=== PATIENT | female | born 1945 | race Caucasian/White ===

== ENCOUNTER 2023-12-22 10:34 | Outpatient (CLI) | payer MEDICARE, SELFPAY | END 2023-12-22 10:35 | disposition home or self-care (01) | LOC: AMB 12-25 19:40 | PROVIDERS: Visit Provider Emergency Medicine Emergency Medical Services | DX: R53.1 Weakness (principal) | CPT/HCPCS: A0425; A0429 ==

== ENCOUNTER 2023-12-22 11:05 | Emergency (ER) | payer MEDICARE, SELFPAY ==
[2023-12-22] VITALS (11 sets, daily range): BP systolic 83–171; BP diastolic 51–97; PULSE 65–98; RESP 16; TEMP 36.2; O2SAT 94–98; BMI 26.6
--- NOTE | 2023-12-22 11:46 | ED_ITS ---
HPI - General Adult General Chief complaint: Fall/Minor Trauma Stated complaint: Fall, dizziness Time Seen by Provider: 12/22/23 11:23 History of Present Illness HPI narrative: per EMS pt. had a fall about 45 min before arrival to the ED. pt. denies LOC or hitting head, pt states I bruised my butt Hx. cancer and infected hardware. last hardware replacement in the left leg was about 5 weeks ago. pt. does antibiotic injections through PICC line at home, scheduled for one today around 1300. pt. states her MD changed the antibiotic about a week ago and that's when I started to fall. 78-year-old woman presenting to the emergency department following a fall. She has been living with her sister. She had fallen was just unable to get up. Sister was unable to help her up and so EMS was called. She thinks ?I bruise my butt?. She has not been having any fever. 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 Underlying history of long-term orthostatic hypotension and does have a history of midodrine and is due for a dose. She says sometimes it helps and signs it does not. It sounds as though this was orthostatic in nature. There is no loss of consciousness. Not her head. No back pain. She does note that she has been feeling fatigued not having had much breakfast. Normally gets about with a walker. No shortness of breath or chest pain or palpitations. Related Data Allergies Allergy/AdvReac Type Severity Reaction Status Date / Time No Known Drug Allergies Allergy Verified 12/22/23 11:13 Review of Systems Status of ROS: Reports: 6 or more systems reviewed and unremarkable except as noted in History and below Exam Narrative: Exam Narrative: Very pleasant. NAD. Head is atraumatic. Cranial nerves 2-12 intact. Heart in regular rate and rhythm. Neck is supple nontender. Back nontender. Abdomen soft nontender. Contracted left foot/ankle. Lungs are clear. Later while doing orthostatics go to examine backside and not really with any reproducible pain. No swelling or erythema. Const: Vital Signs, click to edit/add: Vital Signs - 24 hr 12/22/23 11:13 Temperature 97.2 F L Pulse Rate [Pulse Oximeter] 74 Respiratory Rate 16 Blood Pressure [Ri ght Upper Arm] 160/86 H Pulse Oximetry 98 Oxygen Delivery Me thod Room Air Documenting provider has reviewed patient's vital signs: yes Course Vital Signs Vital signs: Initial Vital Signs Temperature 97.2 F L 12/22/23 11:13 Temperature Source Temporal Artery Scan 12/22/23 11:13 Pulse Rate 74 12/22/23 11:13 Respiratory Rate 16 12/22/23 11:13 Blood Pressure 160/86 H 12/22/23 11:13 Blood Pressure Mean 110 H 12/22/23 11:13 Blood Pressure Position High-Fowlers 12/22/23 11:13 Pulse Oximetry 98 12/22/23 11:13 Oxygen Delivery Method Room Air 12/22/23 11:13 Vital Signs Temperature 97.2 F L 12/22/23 11:13 Pulse Rate 74 12/22/23 11:13 Respiratory Rate 16 12/22/23 11:13 Blood Pressure 160/86 H 12/22/23 11:13 Pulse Oximetry 98 12/22/23 11:13 Oxygen Delivery Method Room Air 12/22/23 11:13 Temperature 97.2 F L 12/22/23 11:13 Pulse Rate 71 12/22/23 13:15 Respiratory Rate 16 12/22/23 11:13 Blood Pressure 171/97 H 12/22/23 13:05 Pulse Oximetry 97 12/22/23 13:15 Oxygen Delivery Method Room Air 12/22/23 11:13 Medications Administered Medications: Discontinued Medications Generic Name Dose Route Start Last Admin Trade Name Freq PRN Reason Stop Dose Admin Midodrine 5 mg 12/22/23 13:06 12/22/23 13:15 Midodrine Hcl 5 Mg Tablet PO 12/22/23 13:07 5 mg ONCE ONE Administration Medical Decision Making MDM Narrative Medical decision making narrative: In examination of orthostatics clearly drops pressures when going to standing. Minimally symptomatic. Over time in emergency department generally well. Did give due dose of midodrine. Was given food and overall reports feeling well, at baseline and felt could go home. Discharge Plan Discharge Clinical Impression: Fall, Orthostatic hypotension Patient Disposition: Home w/ Parent or Adult Condition: Improved Additional Instructions: Focus on hydration. Take care in transitions. Always eat a good breakfast :) Follow Up/Referrals: Provider,Not a Local [Primary Care Provider] - Stand Alone Forms: [facility] Info Instructions
[2023-12-22] MEDS: MIDODRINE HCL 5 MG TABLET PO (13:15)
== END 2023-12-22 15:15 | disposition home or self-care (01) ==
PROVIDERS: Emergency Provider Family Medicine
DX: E87.6 Hypokalemia (principal); E83.42 Hypomagnesemia; E87.1 Hypo-osmolality and hyponatremia
CPT/HCPCS: 99284; A9270

== ENCOUNTER 2023-12-25 15:44 | Emergency (ER) | payer MEDICARE, SELFPAY ==
[2023-12-25] VITALS (21 sets, daily range): BP systolic 144–171; BP diastolic 72–92; PULSE 64–100; RESP 14; TEMP 36.5; O2SAT 94–98; BMI 21.6
--- NOTE | 2023-12-25 16:40 | ED.GENADULT ---
HPI - General Adult General Date Seen: 12/25/23 Chief complaint: Unspecified Complaint, Adult Stated complaint: irregular labs - sent from Infusion Time Seen by Provider: 12/25/23 16:06 History of Present Illness HPI narrative: 78-year-old female who was referred to the ER from the infusion center today because of abnormal labs. She has a complicated past medical history including metastatic endometrial cancer that was 1st diagnosed about 7 years ago when she had a pathologic left hip fracture. Ultimately she had treatment of her cancer with radiation and chemo. She is no longer on treatment for that. She did have hip surgery at the time of her pathologic fracture and ultimately has had multiple surgeries in follow-up. 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 She has had a complete removal of her left hip hardware a your to ago and then spent 15 months without hip. She has had a hip reimplanted since then. Most recent incision and drainage and debridement was about 5 and half weeks ago in early November. Her orthopedic surgery team is at [facility] through the [facility] system in [place]. She also is on long-term antibiotics because of her infected hip. She has apparently had multiple cultures from the hip that have grown various strains of staff. She had previously been on daptomycin. She has been on a combination of vancomycin, levofloxacin, and rifampin for the past several weeks. She has a PICC line in her left upper extremity and she comes in for outpatient infusions of her meds. In addition to that she also has a history of orthostatic hypotension and takes midodrine for that. She had had symptoms of poor appetite, dizziness, generalized weakness for several days last week. No diarrhea. No vomiting but she did feel nauseous. She actually been seen in the ER for this last Monday and felt better after receiving a dose of midodrine. She was diagnosed with orthostatic hypotension. Although symptoms have been better since Monday. She has been basically feeling back to normal since then. She had labs drawn through the [employer] system today that were abnormal with a low potassium of 2.7, low sodium of 130, and an elevated vancomycin trough level. She was told to come to the ER because of her low potassium. She says she has never had significantly low potassium before but she typically would eat bananas to help keep it up. When I review her records through the [employer] care link I can see she has had labs On 12/11/2023: Sodium 140, potassium 3.4, chloride 103, bicarb 25, glucose 75, calcium 10.1, BUN 13, creatinine 0.99 . WBC 7.4, hemoglobin 9.4, platelet 323 12/13/23 vancomycin trough 17 On 12/19/2023 Sodium low at 122, potassium low at 2.9, chloride 89, bicarb 21, glucose 118, calcium 8.0, BUN 7, creatinine 0.59 On 12/20/2019 Sodium 123, potassium 2.9, chloride 87, bicarb 22, glucose 96, calcium 8.9, BUN 6, creatinine 0.7 WBC 8.0, hemoglobin 10.7, platelet 176 Year today on 12/25/2023: Sodium 130, potassium 2.7, chloride 93, bicarb 24, glucose 99, BUN 10, creatinine 0.99, calcium 9.4 Vancomycin trough 25.3 Related Data Home Medications ?Medication ?Instructions ?Recorded ?Confirmed atorvastatin 40 mg tablet 40 mg PO DAILY 12/25/23 12/25/23 gabapentin 100 mg capsule 300 mg PO QPM 12/25/23 12/25/23 levofloxacin 750 mg tablet 750 mg PO DAILY 12/25/23 12/25/23 levothyroxine 50 mcg tablet 50 mcg PO DAILY 12/25/23 12/25/23 levothyroxine 75 mcg tablet 75 mcg PO DAILY 12/25/23 12/25/23 micafungin 100 mg intravenous mg IV 12/25/23 solution midodrine 2.5 mg tablet PO 12/25/23 ondansetron 4 mg disintegrating 4 mg PO Q8H PRN 12/25/23 12/25/23 tablet oxycodone 5 mg tablet PO 12/25/23 rifampin 300 mg capsule PO 12/25/23 vancomycin 12/25/23 Previous Rx's ?Medication ?Instructions ?Recorded magnesium oxide 400 mg PO BID #14 caps 12/25/23 potassium chloride 20 mEq 20 meq PO DAILY #7 tabs 12/25/23 tablet,extended release Allergies Allergy/AdvReac Type Severity Reaction Status Date / Time Sulfa (Sulfonamide Allergy Mild Verified 12/25/23 15:56 Antibiotics) PFSH PFSH Social History Smoking Status: Never smoker Do you use any of these nicotine containing products: None How often do you have a drink containing alcohol: never AUDIT-C Alcohol total score: 0 Non-prescribed substance use: denies use Exam Narrative: Exam Narrative: Constitutional: Appears well-developed and well-nourished. Alert. Conversant. Non toxic. HENT: Head: Atraumatic. Nose: Nose normal. Mouth/Throat: Oral mucosa is clear and moist. no trismus. Pharynx normal. Eyes: Conjunctivae normal. EOM normal. Pupils equal, round, and reactive to light. No scleral icterus. Neck: Normal range of motion. Neck supple. No tracheal deviation present. Cardiovascular: Normal rate, regular rhythm. No gallop. No friction rub. No murmur heard. Symmetric radial artery pulses Pulmonary/Chest: Effort normal. No stridor. No respiratory distress. No wheezes. No rales. No rhonchi . No tenderness. Abdominal: Soft. No distension. No mass. No tenderness. No rebound. No guarding. Musculoskeletal: RUE: Normal range of motion. No tenderness. No deformity LUE: Normal range of motion. No tenderness. No deformity RLE: Normal range of motion. No edema. No tenderness. No deformity LLE: Chronic left leg shortening due to her previous left hip surgeries. No acute erythema or swelling. I did not remove the patient's undergarments for thorough hip exam. However she reports that there is no redness or drainage from her recent hip surgery incision. Lymph: No cervical adenopathy. Neurological: Alert and oriented to person, place, and time. Normal strength. CN II-VII intact. No sensory deficit. GCS eye subscore is 4. GCS verbal subscore is 5. GCS motor subscore is 6. Normal coordination Skin: Skin is warm and dry. No rash noted. No pallor. Normal capillary refill. Psychiatric: Normal mood. Normal affect. Const: Vital Signs, click to edit/add: Vital Signs - 24 hr 12/25/23 15:51 12/25/23 17:54 12/25/23 17:55 Temperature 97.7 F Pulse Rate 71 71 Pulse Rate [Pulse Oximeter] 100 Respiratory Rate 14 Blood Pressure 154/82 H Blood Pressure [Ri ght Upper Arm] 156/85 H Pulse Oximetry 96 97 97 Oxygen Delivery Me thod Room Air 12/25/23 17:57 12/25/23 18:00 12/25/23 18:01 Temperature Pulse Rate 66 65 Pulse Rate [Pulse Oximeter] Respiratory Rate Blood Pressure 163/82 H Blood Pressure [Ri ght Upper Arm] Pulse Oximetry 96 96 97 Oxygen Delivery Me thod 12/25/23 18:02 12/25/23 18:30 12/25/23 18:32 Temperature Pulse Rate 68 68 69 Pulse Rate [Pulse Oximeter] Respiratory Rate Blood Pressure 168/88 H Blood Pressure [Ri ght Upper Arm] Pulse Oximetry 96 96 96 Oxygen Delivery Me thod 12/25/23 18:33 12/25/23 19:00 12/25/23 19:01 Temperature Pulse Rate 67 68 67 Pulse Rate [Pulse Oximeter] Respiratory Rate Blood Pressure 161/81 H Blood Pressure [Ri ght Upper Arm] Pulse Oximetry 96 96 96 Oxygen Delivery Me thod 12/25/23 19:02 12/25/23 19:30 12/25/23 19:32 Temperature Pulse Rate 69 64 64 Pulse Rate [Pulse Oximeter] Respiratory Rate Blood Pressure 171/77 H Blood Pressure [Ri ght Upper Arm] Pulse Oximetry 95 98 97 Oxygen Delivery Me thod 12/25/23 20:00 12/25/23 20:02 12/25/23 20:30 Temperature Pulse Rate 64 70 74 Pulse Rate [Pulse Oximeter] Respiratory Rate Blood Pressure 164/75 H Blood Pressure [Ri ght Upper Arm] Pulse Oximetry 96 94 96 Oxygen Delivery Me thod 12/25/23 20:32 12/25/23 21:00 12/25/23 21:01 Temperature Pulse Rate 67 64 64 Pulse Rate [Pulse Oximeter] Respiratory Rate Blood Pressure 151/92 H 144/72 H Blood Pressure [Ri ght Upper Arm] Pulse Oximetry 97 95 95 Oxygen Delivery Me thod Course Vital Signs Vital signs: Initial Vital Signs Temperature 97.7 F 12/25/23 15:51 Temperature Source Temporal Artery Scan 12/25/23 15:51 Pulse Rate 100 12/25/23 15:51 Respiratory Rate 14 12/25/23 15:51 Blood Pressure 156/85 H 12/25/23 15:51 Blood Pressure Mean 108 H 12/25/23 15:51 Blood Pressure Position Sitting 12/25/23 15:51 Pulse Oximetry 96 12/25/23 15:51 Oxygen Delivery Method Room Air 12/25/23 15:51 Vital Signs Temperature 97.7 F 12/25/23 15:51 Pulse Rate 100 12/25/23 15:51 Respiratory Rate 14 12/25/23 15:51 Blood Pressure 156/85 H 12/25/23 15:51 Pulse Oximetry 96 12/25/23 15:51 Oxygen Delivery Method Room Air 12/25/23 15:51 Temperature 97.7 F 12/25/23 15:51 Pulse Rate 64 12/25/23 21:01 Respiratory Rate 14 12/25/23 15:51 Blood Pressure 144/72 H 12/25/23 21:01 Pulse Oximetry 95 12/25/23 21:01 Oxygen Delivery Method Room Air 12/25/23 15:51 Medications Administered Medications: Discontinued Medications Generic Name Dose Route Start Last Admin Trade Name Freq PRN Reason Stop Dose Admin Magnesium Sulfate 2 gm in 50 mls @ 25 mls/hr 12/25/23 19:21 12/25/23 21:44 Magnesium Iv IVPB 12/25/23 21:20 Infused ONCE ONE Infusion Magnesium Oxide 400 mg 12/25/23 19:14 12/25/23 19:38 Magnesium Oxide 400 Mg Tablet PO 12/25/23 19:15 400 mg ONCE ONE Administration Potassium Bicarbonate 50 meq 12/25/23 19:22 12/25/23 19:38 Potassium Bicarb 25 Meq Effervescent Tab PO 12/25/23 19:23 50 meq ONCE ONE Administration Potassium Chloride 40 meq 12/25/23 17:08 12/25/23 17:55 Potassium Chloride 10 Meq Capsule Er PO 12/25/23 17:09 40 meq ONCE ONE Administration Medical Decision Making [facility] Narrative Medical decision making narrative: Very pleasant 78-year-old female with a complex past medical history including 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 She was sent to the ER today by the outpatient infusion center where she goes to get her antibiotics because she had low potassium and low sodium. She actually had been symptomatic with lightheadedness and dizziness and weakness last week but has been better and essentially asymptomatic since 3 days ago on Monday. She was apprised when the infusion center center in because she did not expect her labs to be low. She does not take any diuretics or other medications that would clearly cause low potassium We did recheck labs here in the ER today and we do confirm hypokalemia with potassium of 2.5. Surprisingly she is not having any symptoms. EKG shows nonspecific T-wave flattening but no QT prolongation. Magnesium level is also low at 1.2. Patient was supplemented with serial doses of oral potassium here in the ER-total of 90 mEq of potassium. Also oral magnesium and 2 g of magnesium sulfate IV. On recheck labs we see that her potassium is, per 4.3 and magnesium is normal at 2.5. She remains asymptomatic. At this point her electrolytes are at safe levels were she can be discharged with close outpatient follow-up. She will follow-up with her doctor's office tomorrow or 2 days from now for repeat lab check. In the meantime will start her on a short course of oral potassium and magnesium supplements. Cause for hypokalemia and hypomagnesemia is unclear. She does have hyponatremia with sodium of 123. She is not symptomatic with this. Normal mental status. Similar to labs from last week. Will need outpatient follow-up. Discussed precautions for return to the ER. Questions answered. Patient discharging home with her sister. Lab Data Labs: Lab Results 12/25/23 12/25/23 Range/Units 16:22 21:41 WBC 8.96 (4.50-11.00) K/uL RBC 3.29 L (4.00-5.20) m/uL Hgb 10.1 L (12.0-16.0) gm/dL Hct 29.7 L (33.0-51.0) % MCV 90 (80-100) fL MCH 31 (26-34) pg MCHC 34 (32-36) gm/dL RDW Coeff of Todd 14.2 (11.5-15.5) % Plt Count 223 (140-440) K/uL Neut % (Auto) 80.6 H (42.0-72.0) % Lymph % (Auto) 8.0 L (20-44) % [place] % (Auto) 6.7 (0.0-11.0) % Eos % (Auto) 3.7 (0.0-7.0) % Baso % (Auto) 0.6 (0.0-3.0) % Neut # (Auto) 7.20 H (1.7-7.0) K/uL Lymph # (Auto) 0.70 L (0.90-2.90) K/uL [place] # (Auto) 0.60 (0.00-0.90) K/UL Eos # (Auto) 0.33 (0.00-0.50) K/uL Baso # (Auto) 0.05 (0.00-0.30) K/uL Abs Immat Gran (auto) 0.04 (0.00-0.30) K/uL Imm/Tot Granulo (auto) 0.4 % Sodium 124 L* 123 L* (135-149) mmol/L Potassium 2.5 L* 4.3 (3.6-5.1) mmol/L Chloride 91 L 90 L (96-114) mmol/L Carbon Dioxide 24 28 (20-32) mmol/L Anion Gap 9 5 L (7-15) mEq/L BUN 13 13 (7-30) mg/dL Creatinine 1.0 1.0 (0.5-1.5) mg/dL Estimated Creat Clear 43.40 43.40 Estimated GFR 58 58 ml/min Glucose 134 H 105 (60-115) mg/dL Calcium 8.9 8.7 (8.4-10.6) mg/dL Magnesium 1.3 L 2.3 (1.5-2.6) mg/dL ECG Data Attestation: I personally reviewed and interpreted this ECG as follows: Interpretation: Normal sinus rhythm Rate: 73 DE: 196 QRS axis: Low-voltage QRS. Full he has extreme right axis deviation ST segment/T wave: Nonspecific T-wave flattening no ST segment elevation or depression.. QTc: Four hundred forty-nine Discharge Plan Discharge Clinical Impression: Acute hypokalemia, Hypomagnesemia, Acute hyponatremia Patient Disposition: Home, Self-Care Condition: Stable Instructions: Hypokalemia (ED), Hypomagnesemia (ED) Additional Instructions: We will start on potassium supplements and magnesium supplements that you can take at home. Please follow-up with your doctor's office tomorrow or Monday to have a labs rechecked For now continue on your current antibiotic regimen. If you have any new symptoms such as dizziness, lightheadedness, weakness, heart palpitations or irregular rhythms, dizzy spells, or any problems, please come back to the ER right away to be rechecked. Prescriptions: New potassium chloride 20 mEq tablet extended release 20 meq PO DAILY Qty: 7 2RF magnesium oxide 400 mg magnesium capsule 400 mg PO BID Qty: 14 0RF No Action atorvastatin 40 mg tablet 40 mg PO DAILY levothyroxine 75 mcg tablet 75 mcg PO DAILY rifampin 300 mg capsule PO levothyroxine 50 mcg tablet 50 mcg PO DAILY midodrine 2.5 mg tablet PO gabapentin 100 mg capsule 300 mg PO QPM levofloxacin 750 mg tablet 750 mg PO DAILY ondansetron 4 mg tablet,disintegrating 4 mg PO Q8H PRN oxycodone 5 mg tablet PO micafungin 100 mg recon soln IV vancomycin Rx Instructions: 1.25 Grams in 250 mL Bolus IV med through picc line Follow Up/Referrals: Provider,Not a Local [Primary Care Provider] - Stand Alone Forms: [facility] Info Inst[facility]
[2023-12-25 17:21] LABS: Basophils Absolute Auto 0.05 K/uL (0.00-0.30); Basophils Percent Auto 0.6 % (0.0-3.0); Eosinophils Absolute Auto 0.33 K/uL (0.00-0.50); Eosinophils Percent Auto 3.7 % (0.0-7.0); Hematocrit 29.7 % (33.0-51.0); Hemoglobin* 10.1 gm/dL (12.0-16.0); Immature Granulocytes Abs Auto 0.04 K/uL (0.00-0.30); Immature Granulocytes Pct Auto 0.4 %; Mean Corpuscular HGB Conc 34 gm/dL (32-36); Mean Corpuscular Hemoglobin 31 pg (26-34); Mean Corpuscular Volume 90 fL (80-100); Monocytes Percent Auto 6.7 % (0.0-11.0); Neutrophils Percent Auto 80.6 % (42.0-72.0); Platelet Count* 223 K/uL (140-440); RDW Coefficient of Variation % 14.2 % (11.5-15.5); Red Blood Count 3.29 m/uL (4.00-5.20); White Blood Count* 8.96 K/uL (4.50-11.00)
[2023-12-25 17:23] LABS: Slide Review Reflex No
[2023-12-25 17:36] LABS: Chloride* 91 mmol/L (96-114)
[2023-12-25 17:39] LABS: Estimated Glomerular Filt Rate 58 ml/min
[2023-12-25 17:40] LABS: Anion Gap 9 mEq/L (7-15); Blood Urea Nitrogen* 13 mg/dL (7-30); Calcium* 8.9 mg/dL (8.4-10.6); Carbon Dioxide* 24 mmol/L (20-32); Glucose* 134 mg/dL (60-115); Magnesium* 1.3 mg/dL (1.5-2.6)
[2023-12-25 17:46] LABS: Potassium* 2.5 mmol/L (3.6-5.1); Sodium* 124 mmol/L (135-149)
[2023-12-25] MEDS: POTASSIUM CHLORIDE 10 MEQ CAPSULE ER 40 MEQ PO (17:55)
[2023-12-25] MEDS: POTASSIUM BICARB 25 MEQ EFFERVESCENT TAB 50 MEQ PO (19:38)
[2023-12-25] MEDS: MAGNESIUM OXIDE 400 MG TABLET PO (19:38)
[2023-12-25] MEDS: MAGNESIUM IV 2 GM/50 ML PIGGYBACK IVPB (19:38)
[2023-12-25 22:11] LABS: Chloride* 90 mmol/L (96-114); Potassium* 4.3 mmol/L (3.6-5.1)
[2023-12-25 22:13] LABS: Estimated Glomerular Filt Rate 58 ml/min
[2023-12-25 22:14] LABS: Anion Gap 5 mEq/L (7-15); Blood Urea Nitrogen* 13 mg/dL (7-30); Calcium* 8.7 mg/dL (8.4-10.6); Carbon Dioxide* 28 mmol/L (20-32); Glucose* 105 mg/dL (60-115); Magnesium* 2.3 mg/dL (1.5-2.6)
[2023-12-25 22:18] LABS: Sodium* 123 mmol/L (135-149)
== END 2023-12-25 23:09 | disposition home or self-care (01) ==
PROVIDERS: Emergency Provider Emergency Medicine
DX: E87.6 Hypokalemia (principal); E83.42 Hypomagnesemia; E87.1 Hypo-osmolality and hyponatremia
CPT/HCPCS: 36415; 80048; 83735; 85025; 93005; 94761; 96365; 96366; 99283; 99284; A9270; J3475

== ENCOUNTER 2024-01-02 09:04 | Emergency (ER) | payer MEDICARE, SELFPAY ==
[2024-01-02 09:09] VITALS: BP 146/88; PULSE 93; RESP 18; TEMP 36.8; O2SAT 98
--- NOTE | 2024-01-02 09:33 | CRLHL7_ITS ---
For Patients: As a result of the Century Cures Act, medical imaging exams and procedure reports are released immediately into your electronic medical record. You may view this report before your referring provider. If you have questions, please contact your health care provider. Indication: Right lower flank pain. Technique: CT of the abdomen and pelvis was performed without contrast. Comparison: None available. Findings: Visualized lung bases: Trace right greater than left pleural effusions. Liver: Unremarkable for unenhanced technique. Multiple small gallstones in the gallbladder body and neck. No pericholecystic inflammatory change. No biliary ductal dilation. Pancreas: Unremarkable for unenhanced technique. Spleen: Unremarkable for unenhanced technique. Adrenals: Unremarkable for unenhanced technique. Kidneys: Mild right hydronephrosis secondary to an 8 mm ureteropelvic junction calculus. More distal within the right ureter, there is a 2nd calculus measuring 4 mm just proximal to the ureterovesical junction. Additional bilateral renal calculi measure up to 7 mm on the right and 10 mm on the left. No left hydronephrosis. Asymmetric right perinephric stranding. Aorta/IVC: Moderate atherosclerotic aortic calcifications without aneurysmal dilation. Lymph nodes: No lymphadenopathy. Bowel: Nonobstructed bowel. Colonic diverticulosis without findings of acute diverticulitis. Normal appendix. No localized inflammatory changes. No intraperitoneal free air or fluid. Pelvis: Partially obscured secondary to beam hardening artifact from the patient`s left hip prosthesis. Uterus is surgically absent. Bones/body wall: Osseous demineralization. Osteoporotic compression fracture involving the inferior endplate of L1 with associated fracture line. There is approximately 30 percent loss of vertebral body height. Multilevel degenerative disc disease. Severe facet arthropathy. Asymmetric atrophy of the left iliopsoas musculature and gluteal musculature, likely postoperative. Impression: 1. There are 2 right ureteral calculi with mild right hydronephrosis. The larger calculus is at the ureteropelvic junction measuring 8 mm and the smaller is just proximal to the ureterovesical junction measuring 4 mm. Right perinephric stranding may be reactive versus infectious. 2. Additional bilateral renal calculi as described. 3. Acute appearing L1 inferior endplate osteoporotic compression fracture with approximately 30 percent vertebral body height loss. 4. Cholelithiasis. 5. Trace bilateral pleural effusions. 6. Colonic diverticulosis. Please note that all CT scans at this facility use dose modulation, iterative reconstruction, and/or weight-based dosing when appropriate to reduce radiation dose to as low as reasonably achievable. Dictated by Cari Orta MD @ 01/02/2024 10:27:56 AM (Electronically Signed)
[2024-01-02 09:59] LABS: Basophils Percent Auto 0.3 % (0.0-3.0); Eosinophils Percent Auto 1.3 % (0.0-7.0); Hemoglobin* 9.6 gm/dL (12.0-16.0); Immature Granulocytes Pct Auto 0.3 %; Lymphocytes Percent Auto 4.1 % (20-44); Mean Corpuscular HGB Conc 34 gm/dL (32-36); Mean Corpuscular Hemoglobin 31 pg (26-34); Mean Corpuscular Volume 91 fL (80-100); Monocytes Percent Auto 6.4 % (0.0-11.0); Neutrophils Percent Auto 87.6 % (42.0-72.0); Platelet Count* 216 K/uL (140-440); RDW Coefficient of Variation % 13.6 % (11.5-15.5); Red Blood Count 3.09 m/uL (4.00-5.20); White Blood Count* 11.59 K/uL (4.50-11.00)
[2024-01-02 10:05] LABS: Slide Review Reflex No
[2024-01-02 10:11] LABS: Albumin* 3.3 g/dL (3.3-5.0)
[2024-01-02 10:12] LABS: Chloride* 90 mmol/L (96-114); Potassium* 4.3 mmol/L (3.6-5.1)
[2024-01-02 10:14] LABS: Anion Gap 8 mEq/L (7-15); Aspartate Amino Transferase* 23 U/L (12-35); Bilirubin Total* 0.4 mg/dL (0.1-1.5); Carbon Dioxide* 22 mmol/L (20-32); Estimated Glomerular Filt Rate 58 ml/min
--- NOTE | 2024-01-02 10:14 | ED.GENADULT ---
HPI - General Adult General Date Seen: 01/02/24 Chief complaint: Back Injury/Pain Stated complaint: kidney low back pain RT side Time Seen by Provider: 01/02/24 09:27 Source: patient Mode of arrival: ambulatory Limitations: no limitations History of Present Illness HPI narrative: Patient is a 78-year-old female presenting to emergency department for right flank pain. She states this pain started at 06:00 this morning woke up from her sleep. She says the pain feels like it was deep and she is concerned was her kidney. Has had pain in this area before but she states previously that pain felt more musculoskeletal in nature. She does not remember any recent injuries or heavy lifting that could have caused the flank pain. 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 She has a PICC line is currently on IV vancomycin for the next 2 days. Has been on it for the past couple weeks. She denies fevers, chills, chest pain, shortness of breath, abdominal pain, diarrhea, constipation, headache, vision changes, dysuria, polyuria. No other concerns noted at this time. Related Data Home Medications ?Medication ?Instructions ?Recorded ?Confirmed atorvastatin 40 mg tablet 40 mg PO DAILY 12/25/23 12/25/23 gabapentin 100 mg capsule 300 mg PO QPM 12/25/23 12/25/23 levofloxacin 750 mg tablet 750 mg PO DAILY 12/25/23 12/25/23 levothyroxine 50 mcg tablet 50 mcg PO DAILY 12/25/23 12/25/23 levothyroxine 75 mcg tablet 75 mcg PO DAILY 12/25/23 12/25/23 micafungin 100 mg intravenous mg IV 12/25/23 solution midodrine 2.5 mg tablet PO 12/25/23 ondansetron 4 mg disintegrating 4 mg PO Q8H PRN 12/25/23 12/25/23 tablet oxycodone 5 mg tablet PO 12/25/23 rifampin 300 mg capsule PO 12/25/23 vancomycin 12/25/23 Previous Rx's ?Medication ?Instructions ?Recorded magnesium oxide 400 mg PO BID #14 caps 12/25/23 potassium chloride 20 mEq 20 meq PO DAILY #7 tabs 12/25/23 tablet,extended release Allergies Allergy/AdvReac Type Severity Reaction Status Date / Time Sulfa (Sulfonamide Allergy Mild Verified 12/25/23 15:56 Antibiotics) Review of Systems Status of ROS: Reports: 10 or more systems reviewed and unremarkable except as noted in History and below PFSH PFS Social History Smoking Status: Never smoker Do you use any of these nicotine containing products: None How often do you have a drink containing alcohol: never How often do you have six or more drinks on one occasion: Never AUDIT-C Alcohol total score: 0 Non-prescribed substance use: denies use Exam Narrative: Exam Narrative: Const: Well-nourished, Well-developed, in mild distress Eyes: PERRL, no conjunctival injection, and symmetrical lids HENT: Atraumatic external nose and ears. Moist mucous membranes. Neck: Symmetric, trachea midline, No thyromegaly. CVS: RRR, No murmurs or gallops. Peripheral pulses 2+ and equal in all extremities RESP: Unlabored respiratory effort. Clear to auscultation bilaterally. GI: Nontender/Nondistended, No rebound or guarding. No CVA tenderness MSK:Extremities w/o deformity, Normal Active ROM, right lower paraspinal muscle tenderness just above the iliac crest Skin: Warm, Dry. No rashes or lesions. Neuro: Normal Muscle tone, No focal neurological deficits. Psych: Awake, Alert, & Oriented x3. Appropriate mood and affect. Const: Vital Signs, click to edit/add: Vital Signs - 24 hr 01/02/24 09:09 01/02/24 12:07 01/02/24 14:15 Temperature 98.2 F Pulse Rate [Right Pulse Oximeter] 93 58 L 63 Respiratory Rate 18 16 18 Blood Pressure [Ri ght Upper Arm] 146/88 H 181/73 H 163/71 H Pulse Oximetry 98 96 95 Oxygen Delivery Me thod Room Air Room Air Room Air Course Vital Signs Vital signs: Initial Vital Signs Temperature 98.2 F 01/02/24 09:09 Temperature Source Temporal Artery Scan 01/02/24 09:09 Pulse Rate 93 01/02/24 09:09 Respiratory Rate 18 01/02/24 09:09 Blood Pressure 146/88 H 01/02/24 09:09 Blood Pressure Mean 107 H 01/02/24 09:09 Blood Pressure Position Sitting 01/02/24 09:09 Pulse Oximetry 98 01/02/24 09:09 Oxygen Delivery Method Room Air 01/02/24 09:09 Vital Signs Temperature 98.2 F 01/02/24 09:09 Pulse Rate 93 01/02/24 09:09 Respiratory Rate 18 01/02/24 09:09 Blood Pressure 146/88 H 01/02/24 09:09 Pulse Oximetry 98 01/02/24 09:09 Oxygen Delivery Method Room Air 01/02/24 09:09 Temperature 98.2 F 01/02/24 09:09 Pulse Rate 63 01/02/24 14:15 Respiratory Rate 18 01/02/24 14:15 Blood Pressure 163/71 H 01/02/24 14:15 Pulse Oximetry 95 01/02/24 14:15 Oxygen Delivery Method Room Air 01/02/24 14:15 Medications Administered Medications: Discontinued Medications Generic Name Dose Route Start Last Admin Trade Name Freq PRN Reason Stop Dose Admin Sodium Chloride 500 mls @ 1,000 mls/hr 01/02/24 10:38 01/02/24 11:45 0.9 % Sodium Chloride 500 Ml IV 01/02/24 11:07 Infused .Q30M ONE Infusion Ketorolac Tromethamine 15 mg 01/02/24 13:24 01/02/24 13:41 Ketorolac 15 Mg/Ml Inj IVP 01/02/24 13:25 15 mg ONCE ONE Administration Ondansetron HCl 4 mg 01/02/24 13:24 01/02/24 13:41 Ondansetron 2 Mg/Ml Inj IVP 01/02/24 13:25 4 mg ONCE ONE Administration Medical Decision Making [facility] Narrative Medical decision making narrative: Patient is a 78-year-old female presenting for right flank pain. She concerning could be a kidney stone. This time differential includes nephrolithiasis, back strain. Pain is in lower back and ruptured AAA seems unlikely. Possibly fractures. Will do a CT scan without contrast, CBC, urinalysis, CMP. The patient not needing any pain medication at this time. Of note also the patient is currently on IV vancomycin via PICC line for chronic left thigh wound Lab work returned the sore 120 checking previous labs she has been having issues with low sodium for the past couple weeks. Two weeks ago was 124 and follow-up lab work was improved up until yesterday when sodium was 124 the again. The hemoglobin appears to be at her baseline. She also has low chloride. 500 mL of normal saline were ordered. CT scan returned showing 2 right kidney stones. Leg with the largest being 8 mm at the ureteropelvic junction. The smaller 1 is 4 mm at the ureterovesical junction. There is right perinephric stranding. Urinalysis does not show any obvious signs of a UTI. There is 2-5 white blood cells only trace leukocyte esterases. There is a lot of blood in the urine. Stranding in the kidney is most likely reactive and not infectious. It also shows a L1 inferior endplate osteoporotic compression fracture. She states she fell a couple weeks ago and had some mild lower back pain but is not having any pain around L1 based on my exam. I did speak to the hospitalist here who considering those kidney stones recommend she gets transferred. I spoke to Dr. Anderson the hospitalists of [place] who accepted her for admission. Patient is agreeable to this plan. There will be an 8 hour delay so I will recheck her sodium in the meantime. The patient did require a dose of Zofran and pain medication. Toradol was given. Repeat sodium was 120. Is currently receiving 125 mL/hr of normal saline. Lab Data Labs: Lab Results 01/02/24 01/02/24 01/02/24 Range/Units 09:53 11:28 13:30 WBC 11.59 H (4.50-11.00) K/uL RBC 3.09 L (4.00-5.20) m/uL Hgb 9.6 L (12.0-16.0) gm/dL Hct 28.0 L (33.0-51.0) % MCV 91 (80-100) fL MCH 31 (26-34) pg MCHC 34 (32-36) gm/dL RDW Coeff of [place] 13.6 (11.5-15.5) % Plt Count 216 (140-440) K/uL Neut % (Auto) 87.6 H (42.0-72.0) % Lymph % (Auto) 4.1 L (20-44) % [place] % (Auto) 6.4 (0.0-11.0) % Eos % (Auto) 1.3 (0.0-7.0) % Baso % (Auto) 0.3 (0.0-3.0) % Neut # (Auto) 10.20 H (1.7-7.0) K/uL Lymph # (Auto) 0.50 L (0.90-2.90) K/uL [place] # (Auto) 0.70 (0.00-0.90) K/UL Eos # (Auto) 0.20 (0.00-0.50) K/uL Baso # (Auto) 0.00 (0.00-0.30) K/uL Abs Immat Gran (auto) 0.00 (0.00-0.30) K/uL Imm/Tot Granulo (auto) 0.3 % Sodium 120 L* 120 L* (135-149) mmol/L Potassium 4.3 (3.6-5.1) mmol/L Chloride 90 L (96-114) mmol/L Carbon Dioxide 22 (20-32) mmol/L Anion Gap 8 (7-15) mEq/L BUN 12 (7-30) mg/dL Creatinine 1.0 (0.5-1.5) mg/dL Estimated GFR 58 ml/min Glucose 101 (60-115) mg/dL Calcium 9.7 (8.4-10.6) mg/dL Total Bilirubin 0.4 (0.1-1.5) mg/dL AST 23 (12-35) U/L ALT 12 (4-35) U/L Alkaline Phosphatase 53 (40-150) U/L Total Protein 5.8 L (6.0-8.3) g/dL Albumin 3.3 (3.3-5.0) g/dL Urine Color Yellow (Yellow) Urine Appearance Clear (Clear) Urine pH 7.0 (5.0-8.5) Ur Specific [place] 1.020 (1.000-1.030) Urine Protein 1+ A (Negative) Urine Glucose (UA) Negative (Negative) Urine Ketones Negative (Negative) Urine Blood 2+ A (Negative) Urine Nitrite Negative (Negative) Urine Bilirubin Negative (Negative) Urine Urobilinogen 0.2 (0.2-1.0) Ur Leukocyte Esterase Trace A (Negative) Urine RBC 25-50 A (0-2) Urine WBC 2-5 (0-5) Ur Squamous Epith Cells Few (None-Few) Urine Bacteria Few A (None) Urine Mucus Few A (None) Imaging Data CT scan abdomen pelvis: Attestation: I have reviewed the pertinent imaging results. Radiologist's impression: 1. There are 2 right ureteral calculi with mild right hydronephrosis. The larger calculus is at the ureteropelvic junction measuring 8 mm and the smaller is just proximal to the ureterovesical junction measuring 4 mm. Right perinephric stranding may be reactive versus infectious. 2. Additional bilateral renal calculi as described. 3. Acute appearing L1 inferior endplate osteoporotic compression fracture with approximately 30 percent vertebral body height loss. 4. Cholelithiasis. 5. Trace bilateral pleural effusions. 6. Colonic diverticulosis. Please note that all CT scans at this facility use dose modulation, iterative reconstruction, and/or weight-based dosing when appropriate to reduce radiation dose to as low as reasonably achievable. Dictated by Cari Orta MD @ 01/02/2024 10:27:56 AM Discharge Plan Discharge Clinical Impression: Acute hyponatremia Urolithiasis Qualifiers: Urinary calculus location: urethra Qualified Code(s): N21.1 - Calculus in urethra Compression fracture of L1 vertebra Qualifiers: Encounter type: initial encounter Qualified Code(s): S32.010A - Wedge compression fracture of first lumbar vertebra, initial encounter for closed fracture Patient Disposition: [facility] Condition: Improved Prescriptions: No Action atorvastatin 40 mg tablet 40 mg PO DAILY levothyroxine 75 mcg tablet 75 mcg PO DAILY rifampin 300 mg capsule PO levothyroxine 50 mcg tablet 50 mcg PO DAILY midodrine 2.5 mg tablet PO gabapentin 100 mg capsule 300 mg PO QPM levofloxacin 750 mg tablet 750 mg PO DAILY ondansetron 4 mg tablet,disintegrating 4 mg PO Q8H PRN oxycodone 5 mg tablet PO micafungin 100 mg recon soln IV vancomycin Rx Instructions: 1.25 Grams in 250 mL Bolus IV med through picc line potassium chloride 20 mEq tablet extended release 20 meq PO DAILY Qty: 7 2RF magnesium oxide 400 mg magnesium capsule 400 mg PO BID Qty: 14 0RF Stand Alone Forms: [employer] Info Instructions
[2024-01-02 10:15] LABS: Alanine Aminotransferase* 12 U/L (4-35); Alkaline Phosphatase* 53 U/L (40-150); Blood Urea Nitrogen* 12 mg/dL (7-30); Calcium* 9.7 mg/dL (8.4-10.6); Glucose* 101 mg/dL (60-115); Total Protein* 5.8 g/dL (6.0-8.3)
[2024-01-02 10:17] LABS: Sodium* 120 mmol/L (135-149)
--- NOTE | 2024-01-02 10:20 | ED.NURSE ---
Critical lab report of sodium 120. is notified and aware.
[2024-01-02] MEDS: 0.9 % SODIUM CHLORIDE 500 ML 500 ML 1000 ML IV (10:49)
[2024-01-02 11:33] LABS: Appearance Urine Clear (Clear); Bilirubin Urine Negative (Negative); Blood Urine 2+ (Negative); Color Urine Yellow (Yellow); Glucose Urine Negative (Negative); Ketones Urine Negative (Negative); Leukocyte Esterase Urine Trace (Negative); Nitrite Urine Negative (Negative); Protein Urine 1+ (Negative); Urobilinogen Urine 0.2 (0.2-1.0)
[2024-01-02 11:50] LABS: RBC Urine 25-50 (0-2)
[2024-01-02 11:51] LABS: Bacteria Urine Few; Mucus Urine Few; Squamous Epithelial Cell Urine Few (None-Few)
[2024-01-02 12:07] VITALS: BP 181/73; PULSE 58; RESP 16; O2SAT 96
[2024-01-02] MEDS: ONDANSETRON 2 MG/ML inj 4 MG IVP (13:41)
[2024-01-02] MEDS: KETOROLAC 15 MG/ML inj IVP (13:41)
--- NOTE | 2024-01-02 14:05 | ED.NURSE ---
Pt provided with deny
[2024-01-02 14:13] LABS: Sodium* 120 mmol/L (135-149)
[2024-01-02 14:15] VITALS: BP 163/71; PULSE 63; RESP 18; O2SAT 95
--- NOTE | 2024-01-02 14:29 | ED.NURSE ---
Critical lab report of 120 sodium, MD aware.
--- NOTE | 2024-01-02 16:39 | ED.NURSE ---
Report given to Alma Delia Boothe RN.
[2024-01-02 16:53] LABS: Chloride* 89 mmol/L (96-114); Potassium* 5.4 mmol/L (3.6-5.1)
[2024-01-02 16:56] LABS: Anion Gap 7 mEq/L (7-15); Blood Urea Nitrogen* 14 mg/dL (7-30); Carbon Dioxide* 25 mmol/L (20-32); Creatinine* 1.2 mg/dL (0.5-1.5); Estimated Glomerular Filt Rate 46 ml/min; Glucose* 104 mg/dL (60-115)
[2024-01-02 16:57] LABS: Calcium* 9.5 mg/dL (8.4-10.6)
[2024-01-02 17:01] VITALS: BP 145/67; PULSE 65; RESP 18; O2SAT 96
[2024-01-02 17:05] LABS: Sodium* 121 mmol/L (135-149)
[2024-01-02 17:10] VITALS: TEMP 37.3
--- NOTE | 2024-01-02 17:31 | ED.NURSE ---
Pt report given to EMS. Pt to transfer to room #[id number], unit 54.
== END 2024-01-02 17:35 | disposition short-term general hospital (02) ==
PROVIDERS: Emergency Provider Student in an Organized Health Care Education/Training Program
DX: E87.1 Hypo-osmolality and hyponatremia (principal); N20.9 Urinary calculus, unspecified; S32.010A Wedge compression fracture of first lumbar vertebra, initial encounter for closed fracture
CPT/HCPCS: 36415; 74176; 80048; 80053; 81001; 84295; 85025; 87086; 87186; 96374; 96375; 99284; 99285; J1885; J2405; J7030

== ENCOUNTER 2024-01-02 17:18 | Outpatient (CLI) | payer MEDICARE, SELFPAY | END 2024-01-02 17:19 | disposition home or self-care (01) | LOC: AMB 01-06 15:38 | PROVIDERS: Visit Provider Emergency Medicine | DX: N20.0 Calculus of kidney (principal); E87.1 Hypo-osmolality and hyponatremia; S32.010A Wedge compression fracture of first lumbar vertebra, initial encounter for closed fracture | CPT/HCPCS: A0425; A0434 ==

== ENCOUNTER 2024-03-14 08:29 | Outpatient (CLI) | payer MEDICARE, SELFPAY | END 2024-03-14 08:30 | disposition home or self-care (01) | LOC: AMB 03-25 04:20 | PROVIDERS: Visit Provider Emergency Medicine Emergency Medical Services | DX: R53.1 Weakness (principal); R42 Dizziness and giddiness | CPT/HCPCS: A0998 ==

== ENCOUNTER 2024-03-17 16:05 | Outpatient (CLI) | payer MEDICARE, SELFPAY | END 2024-03-17 16:06 | disposition home or self-care (01) | LOC: AMB 04-02 02:55 | PROVIDERS: Visit Provider Emergency Medicine | DX: R53.1 Weakness (principal) | CPT/HCPCS: A0425; A0429 ==

== ENCOUNTER 2024-03-17 16:34 | Inpatient (IN) | payer MEDICARE, SELFPAY ==
[2024-03-17] VITALS (26 sets, daily range): BP systolic 73–155; BP diastolic 46–79; PULSE 60–99; RESP 18; TEMP 36.4; O2SAT 94–100; BMI 20.2
--- OUTSIDE RECORDS SUMMARY | 2024-03-17 16:35 | XMS_ITS | Continuity of Care Document ---
Author Name Nw[facility]IN User [email or web address] llowed Address Unknown Organization Unknown Address Unknown Procedures FILTER APPLIED:Only known Procedures with Onset Date within the last 5 years Procedure Date Procedure Provider Additiona l Information Status [facility] DECLOT IVAD OR CATH W THROMBOLYTIC (93169) Completed PLATELET COUNT (21750) C ompleted URINALYSIS MICROSCOPIC (52322) Completed UA W/ SEDIMENT EXAM REFLEXED PER CRITERIA (23954) Completed T3,TOTAL (54457) Complet ed TSH (53995) Completed CREATININE (43263) Compl eted POTASSIUM (12758) Comple anaya SODIUM (85858) Completed T4,FREE (12045) Complete d Encounters FILTER APPLIED:Only known Encounters with Admission Date within the last 5 years Encounter Location Admission Discharge Billing Code [employer] Manager Attender Inpatient [facility] AURELIA ALBERT
--- OUTSIDE RECORDS SUMMARY | 2024-03-17 16:35 | XMS_ITS | Clinical Summary ---
Author Organization [facility] Address [place], [place] [address] Care Team Providers Care Education Rep Name Role Phone Essence Palomo MD Unavailable [phone] Lemuel Kilpatrick MD Unavailable [phone] Zoila Fink MD Unavailable Unavailab Alexandria Gilbert MD Primary Care Provider + Eber Tam MD Unavailable + [phone] [facility], Sandeep Unavailable Allergies Active Allergy Reactions Criticality Noted Date Comments Sulfa (Sulfonamide Antibiotics) Hives 04/2016 Medications cholecalciferol (VITAMIN D3) 5,000 unit capsuleIndication s:osteoporosis,os teoporosis Take 5,000 units by mouth once daily. 40 units = 1 mcg (5000 units = 125 mcg) Active diphenhydrAMINE (BENADRYL) 25 mg tabletIndications :allergic reaction Take 25 mg by mouth at bedtime. Plus take one tablet by mouth once a day PRN for sinus congestion Active ferrous sulfate, 65 mg elemental, tabletIndications :iron deficiency anemia Take 1 Tablet (325 mg) by mouth once daily with a meal. 90 Tablet 3 09/16/19 22 Active ascorbic acid (VITAMIN C) 250 mg as half tabletIndications :osteopenia Take 250 mg by mouth once daily. Active cyanocobalamin (VITAMIN B12) 1,000 mcg tabletIndications :B12 deficiency Take 1 Tablet (1,000 mcg) by mouth once daily. 06/10/19 24 Active atorvastatin (LIPITOR) 40 mg tabletIndications :Hyperlipidemia, unspecified hyperlipidemia type TAKE 1 TABLET BY MOUTH AT BEDTIME 90 Tablet 2 11/06/19 24 Active acetaminophen (TYLENOL EXTRA STRGTH) 500 mg tabletIndications :Status post revision of total hip replacement Take 2 Tablets (1,000 mg) by mouth every 6 hours. Max acetaminophen dose: 4000mg in 24 hrs. 100 Tablet 4 11:29 AM CDT 11/27/19 24 Active aspirin enteric coated (ECOTRIN) 325 mg tabletIndications :Status post revision of total hip replacement Take 1 Tablet (325 mg) by mouth once daily with a meal. 30 Tablet 4 11:29 AM CDT 11/28/19 24 Active ondansetron (ZOFRAN ODT) 4 mg disintegrating tabletIndications :Vomiting, unspecified vomiting type, unspecified whether nausea present Place 1 Tablet (4 mg) on the tongue every 8 hours if needed for Nausea/Vomiting. 30 Tablet 12/20/19 24 Active midodrine (PROAMATINE) 2.5 mg tabletIndications :Hypotension, unspecified hypotension type 5mg in the morning, 5mg at noon, 2.5mg at night for hypotension 450 Tablet 3 12/25/19 24 Active calcium citrate (CITRACAL) 200 mg (950 mg) tablet Take 950 mg by mouth once daily with a meal. Active gabapentin (NEURONTIN) 100 mg capsule Take 200 mg by mouth at bedtime. Active levothyroxine (SYNTHROID) 75 mcg tabletIndications :Acquired hypothyroidism Take 1 Tablet (75 mcg) by mouth before breakfast. 01/11/20 24 Active oxyCODONE (ROXICODONE) 5 mg immediate release tabletIndications :Status post revision of total hip replacement Take 1 Tablet (5 mg) by mouth every 4 hours if needed for Pain (For moderate to severe pain and anticipation of activity. Hold if sedated.). 20 Tablet 01/13/20 24 Active doxycycline monohydrate (Monodox) 100 mg capsuleIndication s:bone infection Take 1 Capsule (100 mg) by mouth two times daily. 180 Capsule 3 02/19/20 24 Active levoFLOXacin (LEVAQUIN) 500 mg tablet Take 500 mg by mouth once daily before evening meal. 01/13/20 24 Active levothyroxine (SYNTHROID) 50 mcg tabletIndications :Hypothyroidism, unspecified type TAKE 1 TABLET BY MOUTH EVERY DAY 90 Tablet 1 01/15/20 24 024 Discontin ued(*Medi cation adjustmen t) doxycycline monohydrate (Monodox) 100 mg capsuleIndication s:Infection of prosthetic hip joint, subsequent encounter Take 1 Capsule (100 mg) by mouth two times daily. 01/29/20 24 024 Discontin ued(Reord er (E-cancel not sent)) Active Problems Problem Noted Date Diagnosed Date Acquired hypothyroidism 01/03/2024 Prosthetic hip infection 01/03/2024 Postoperative infection 01/03/2024 Alopecia 01/03/2024 Ureteral stent present 01/03/2024 Janeth infection 01/03/2024 Right ureteral stone 01/02/2024 Closed wedge compression fra cture of L1 vertebra with routine healing 01/02/2024 Hyponatremia 01/02/2024 Prosthetic joint infection of left hip S/p Left hip irrigation & de bridement DOS: 11/21/2023 with Eber Tam MD 11/22/2023 MARJORIE (acute kidney injury) 11/21/2023 Normocytic anemia 11/21/2023 Leukocytosis 11/21/2023 Aftercare following left hip joint replacement s urgery 11/21/2023 Acquired leg length discrepancy 07/19/2023 Overview (07/19/2023): 2/2 left hip surgeries and infection Orthostatic hypotension 06/07/2023 Combined form of senile cataract of both eyes S/p Left total hip arthropla sty revision DPS: 11/18/2022 with Eber Tam MD 02/03/2023 History of endometrial cancer 11/22/2022 B12 deficiency 08/13/2022 Chronic infection of left hip, 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 Hypothyroidism, unspecified 10/06/2020 Age-related osteoporosis wit hout current pathological fracture 10/06/2020 HLD (hyperlipidemia) 12/11/2019 History of pulmonary embolus (PE) 03/23/2017 Overview (02/08/2023): Provoked - endometrial cancer s/p Fixation of left subtroc hanteric femur fracture with a carmel under fluroscopy on 08/13/[address] Miri Mccain 11/08/2016 Pathological fracture in neoplastic disease 11/2016 Resolved Problems Problem Noted Date Diagnosed Date Resolved Date Closed dislocation of left hip 11/17/2022 02/08/2023 Stage 2/3a chronic kidney disease 11/17/2022 02/08/2023 Metabolic acidosis 11/17/2022 Thrombocytopenia 08/24/2022 02/08/2023 Aftercare, L hip joint infection 08/02/2022 02/08/2023 Infected prosthetic hip, initial encounter 07/18/2022 11/22/2022 Anemia 05/10/2022 02/08/2023 Infected prosthetic hip 03/29/202201/12 Hypomagnesemia 12/29/2021 01/05/2022 Hypokalemia 12/28/2021 01/05/2022 Endometrial cancer 11/02/2021 Hyperchloremic metabolic acidosis 07/13/2021 01/05/2022 s/p left hip explant with pl acement of antibiotic spacer on 05/14/2021 with Eber Tam MD 05/25/2021 12/28/2021 s/p left hip I&D on 04/16/2021 with Eber Tam MD 04/19/2021 12/28/2021 s/p left hip I&D on with Eber Tam MD 04/13/2021 12/28/2021 Left hip postoperative wound infection 10/01/2020 02/08/2023 Status post left hip hardwar e removal and total hip arthroplasty done on 05/10/2017 05/18/2017 02/08/2023 Orthopedic aftercare- left h ip failed gamma nail fixation 05/16/2017 02/08/2023 Metastatic adenocarcinoma to bone 05/16/2017 09/30/2020 ACP (advance care planning) 09/23/2016 12/28/2020 Overview (09/28/2016): Patient has identified Health Care Agent(s): Yes Add Health Care Agents: Yes Health Care Agent(s): Primary Health Care Agent: Liza Tam Relationship: Sister Secondary Health Care Agent: Yanira Lombardi Relationship: Cousin Third Alternative Health Care Agent: Daphne Lombardi Relationship: Cousin's Dtr cell; [phone] Conservator: Relationship: Phone: Guardian: Relationship: Phone: Patient has Advance Care Plan Documents (Health Care Directive, POLST): No, Health Care Packet given to patient.- She and her sister plan to review. Patient has identified Specific Treatment Preferences: No Specific limits to treatment preferences NOT identified: ASSUME FULL TREATMENT. Endometrial cancer 09/20/2016 3 Acute cystitis without hematuria 08/21/2016 03/23/2017 Metastatic adenocarcinoma 08/19/2016 Iron deficiency anemia due t o chronic blood loss 08/19/2016 12/09/2019 Postoperative anemia due to acute blood loss 7 03/23/2017 Encounter for orthopedic steve gical aftercare following Left subtrochanteric femoral fracture 08/19/2016 03/23/2017 Overview (08/24/2016): Pathological Fracture d/t Metastatic Adenocarcinoma Vaginal bleeding 08/18/2016 03/23/2017 Closed left hip fracture 08/12/2016 Anemia 08/12/2016 12/09/2019 Leukocytosis 08/12/2016 12/09/2019 Laceration of head 08/12/2016 8 ACP (advance care planning) 08/12/2016 12/09/2019 Overview (08/12/2016): Patient has identified Health Care Agent(s): Yes Add Health Care Agents: sister Liza Patient has Advance Care Plan Documents (Health Care Directive, POLST): No Patient has identified Specific Treatment Preferences: Yes Specific Treatment Preferences: a.) Code Status: CPR/Attempt Resuscitation Encounters Date Type Department Care Team Description 03/15/2024 2:15 PM LEATHER TOOLER Office Visit [facility] [address] [place] [place] [address] Bobbi Santa MD Preoperative Exam (CYSTOSCOPY, RIGHT URETEROSCOPY, HOLMIUM LASER/RIGHT URETERAL STENT REMOVAL VERSUS EXCHANGE /Tomas, Ruben Roy MD/) 03/15/2024 10:30 AM LEATHER TOOLER Home Care Visit [facility] [address] [place] [address] Jelani Hill ARTIST WOODBLOCK - HOME VISIT 03/15/2024 Travel 03/12/2024 2:30 PM LEATHER TOOLER Home Care Visit [facility] [address] [place] [phone] José Miguel Obrien, PT PT - HOME VISIT 03/12/2024 10:15 AM LEATHER TOOLER Home Care Visit [facility] [address] [place] [phone] Drew Crisostomo, OT OT - HOME VISIT 03/12/2024 Travel 03/08/2024 1:00 PM LEATHER TOOLER Home Care Visit [facility] [address] [place] [phone] Lexii Snow COTA OT - HOME VISIT 03/05/2024 10:30 AM LEATHER TOOLER Home Care Visit [facility] [address] [place] [phone] Magda Alvarenga ARTIST WOODBLOCK - HOME VISIT 03/05/2024 9:00 AM LEATHER TOOLER Home Care Visit [facility] [address] [place] [phone] José Miguel Obrien, PT PT - HOME VISIT 03/04/2024 11:00 AM LEATHER TOOLER Home Care Visit [facility] [address] [place] [phone] Eli Dominguez LISW LIFE SCIENTIST - INITIAL ASSESSMENT 02/28/2024 2:15 PM LEATHER TOOLER Home Care Visit [facility] [address] [place] [address] [place] [phone] José Miguel Obrien, PT PT - HOME VISIT 02/28/2024 1:30 PM LEATHER TOOLER Home Care Visit [facility] [address] [place] [address] Lexii Snow COTA OT - HOME VISIT 02/27/2024 12:00 PM LEATHER TOOLER Home Care Visit [facility] [address] [place] [phone] Magda Alvarenga ARTIST WOODBLOCK - HOME VISIT 02/27/2024 9:30 AM LEATHER TOOLER Home Care Visit [facility] [address] [place] [phone] Tawana Peters, CROW SN - DISCIPLINE DISCHARGE 02/27/2024 Telephone [facility] [address] [address] Tawana Peters, blocker and polisher 02/23/2024 10:45 AM LEATHER TOOLER Home Care Visit [facility] [address] [place] [phone] Magda Alvarenga ARTIST WOODBLOCK - HOME VISIT 02/21/2024 2:00 PM LEATHER TOOLER Home Care Visit [facility] [address] [place] [phone] José Miguel Obrien, PT PT - INITIAL ASSESSMENT 02/21/2024 9:30 AM LEATHER TOOLER Home Care Visit [facility] [address] [place] [phone] Drew Crisostomo OT OT - INITIAL ASSESSMENT 02/19/2024 9:00 AM LEATHER TOOLER Phone Office Visit [facility] [address] [place] [address] Costa Flores MD 02/19/2024 Travel 02/15/2024 12:00 PM LEATHER TOOLER Home Care Visit [facility] [address] [place] [phone] Tawana Peters, CROW SN - OASIS START OF CARE 02/15/2024 Plan of Care Documentation [facility] [address] [place] [phone] 02/15/2024 Telephone [facility] [address] [place] [phone] Tawana Peters, blocker and polisher 02/15/2024 Orders Only [facility] [address] [place] [address] Tawana Peters RN <No scans attached> 02/13/2024 Transcribe Orders [facility] [address] [place] [address] Ruben Ty MD 02/12/2024 Telephone [facility] [address] [facility] [address] [place] [address] Costa Flores MD Medication Management (picc line) 02/07/2024 Orders Only [facility] Scanner 1 scan: (1-Ord) [facility], MULTIPLE LAB TESTS, 02/07/2024 02/05/2024 Transcribe Orders [facility] [address] [place] [address] Ruben Ty MD 01/29/2024 9:40 AM LEATHER TOOLER Office Visit [facility] [address] [facility] [address] [place] [address] Costa Flores MD Hospital F/U 01/29/2024 Travel 01/27/2024 Home Care Visit [facility] [address] [place] [phone] Tawana Peters RN EPISODE DISCHARGE 01/23/2024 2:40 PM LEATHER TOOLER Orders Only [facility] [address] [facility] [address] [place] [address] Lab 01/23/2024 Travel 01/23/2024 Patient Outreach [facility] Care Management - Advanced Care Team [address] [place] [address] Yarelis cOhoa, RECREATION THERAPY AIDE [facility] 01/20/2024 Travel 01/18/2024 Telephone [facility] [address] [place] [address] Costa Flores MD Lab 01/17/2024 Home Care Visit [facility] [address] [place] [address] Tawana Peters RN CARE COORDINATION 01/16/2024 Telephone [facility] [address] [place] [address] Costa Flores MD Medication Management (Stop date for antibiotics) 01/11/2024 Refill [facility] [address] [place] [phone] Alexandria Lynch MD Refill Request (Levothyroxine) 01/04/2024 Travel 01/04/2024 Home Care Visit [facility] [address] [place] [phone] Tawana Peters, CROW SN - OASIS TRANSFER 01/03/2024 10:50 AM CDT Anesthesia Event [facility] [address] [place] [address] Ruby Durham MD Natzel, Marissa L, BRIDGE WELDER Student 01/03/2024 10:25 AM CDT - 01/03/2024 12:28 PM CDT Surgery [facility] [address] [place] [address] Ruben Marin MD CYSTOSCOPY, RIGHT URETERAL STENT PLACEMENT, RIGHT RETROGRADE PYELOGRAM 01/03/2024 Home Care Visit [facility] [address] [place] [address] Malika Chandler RN CARE TRANSITION NOTE 01/02/2024 7:53 PM CDT - 01/13/2024 10:40 AM CDT Hospital Encounter [facility] [address] [place] [address] [facility] Solano MD Lorence-Nelson, Dona Mae, MD Zafari, Olivia, MD Acquired hypothyroidism (Primary Dx); Hypothyroidism, unspecified type; Janeth infection; Infection of prosthetic hip joint, subsequent encounter; Occlusion of peripherally inserted central catheter (PICC) line, subsequent encounter; S/p Left total hip arthroplasty revision DPS: 11/18/2022 with Eber Tam MD Discharge Disposition: [facility] 01/02/2024 Nurse Triage [facility] [address] [place] [address] Alexandria Lynch MD Back Pain 01/01/2024 1:30 PM CDT Home Care Visit [facility] [address] [place] [phone] Tawana Peters RN SN - LONG VISIT (>90 MINUTES) 01/01/2024 9:00 AM CDT Phone Office Visit [facility] [address] [facility] [address] [place] [address] Costa Flores MD 01/01/2024 Orders Only [facility] [address] [place] [address] Costa Flores MD Lab 01/01/2024 Travel 01/01/2024 Orders Only [facility] [address] [place] [address] Costa Flores MD Lab (Home care) 12/28/2023 10:40 AM CDT Office Visit [facility] Orthopedics - [facility] [place] [address] [facility] [address] [place] [address] Eber Tam MD Surgical Followup (5 weeks s/p Left hip irrigation & debridement DOS: 11/21/2023 with Eber Tam MD) 12/27/2023 12:00 PM CDT Home Care Visit [facility] [address] [place] [address] Magda Alvarenga ARTIST WOODBLOCK - HOME VISIT 12/27/2023 Travel 12/26/2023 11:30 AM CDT Home Care Visit [facility] [address] [place] [address] Tawana Peters, CROW SN - LONG VISIT (>90 MINUTES) 12/26/2023 Telephone [facility] [address] [place] [address] Tawana Peters RN Home Care 12/26/2023 Orders Only [facility] [address] [place] [address] Costa Flores MD Lab 12/26/2023 Orders Only [facility] [address] [place] [address] Costa Flores MD Lab (Home care) 12/25/2023 1:00 PM CDT Home Care Visit [facility] [address] [place] [address] Tawana Peters RN SN - LONG VISIT (>90 MINUTES) 12/25/2023 Home Care Visit [facility] [address] [place] [address] Tawana Peters, CROW CARE COORDINATION 12/25/2023 Telephone [facility] [address] [facility] [address] [place] [address] Zainab Miramontes MD 12/25/2023 Orders Only [facility] [address] [place] [address] Costa Flores MD Lab 12/25/2023 Orders Only [facility] [address] [place] [address] Costa Flores MD Lab (Home care) 12/25/2023 Refill [facility] [address] [place] [phone] Alexandria Lynch MD Refill Request (midodrine (PROAMATINE) 2.5 mg tablet ) 12/20/2023 4:00 PM CDT Home Care Visit [facility] [address] [place] [phone] Tawana Peters RN SN - HOME VISIT 12/20/2023 Orders Only [facility] [address] [place] [address] Tawana Peters RN <No scans attached> 12/20/2023 Nurse Triage [facility] [address] [place] [phone] Alexandria Lynch MD Concerns 12/20/2023 Orders Only [facility] [address] [place] [address] Costa Flores MD Lab 12/19/2023 1:30 PM CDT Home Care Visit [facility] [address] [place] [phone] Tawana Peters RN SN - LONG VISIT (>90 MINUTES) 12/19/2023 Telephone [facility] [address] [place] [address] Tawana Peters, blocker and polisher 12/19/2023 Orders Only [facility] [address] [facility] [place] [address] Tawana Peters RN <No scans attached> 12/19/2023 Orders Only [facility] [address] [place] [address] Costa Flores MD Lab 12/19/2023 Orders Only [facility] [address] [place] [address] Costa Flores MD Lab ([facility]) 12/18/2023 12:40 PM CDT Office Visit [facility] Orthopedics - [facility] [place] [address] [facility] [address] [place] [phone] Demetri Fernandez PA Follow Up (S/p Left hip irrigation & debridement DOS: 11/21/2023 with Eber Tam MD) 12/18/2023 Travel from Last 3 Months Immunizations Name Administration Dates Next Due AMB Influenza, IIV4 PF (=>6 mos Flulaval,Fluzone Fluarix)(Flu Clinic Only) 01/20/2020 Amb Influenza, Inact (High-d ose Quadrivalent) (Flu Clinic Only) 12/11/2016 COVID-19 VACCINE SPIKEVAX (M ODERNA 50MCG/0.5ML) 12YO+ PFS 01/08/2024,02/08/2023 COVID-19 vaccine (Moderna 50mcg/0.5mL) 6YO-11YO PF, MDV 02/08/2023 COVID-19 vaccine (WaveSyndicate-Bio NTech 30mcg/0.3mL) 12YO+ BIVALENT PF, MDV 12/29/2021 COVID-19 vaccine (Pfizer-Bio NTech 30mcg/0.3mL) 12YO+ JEANNIE-SUCROSE PF, MDV 06/24/2021 COVID-19 vaccine (WaveSyndicate-Bio NTech 30mcg/0.3mL) PF, MDV 12/29/2021,06/12/2020,05/22/2020,2020 Influenza, High-dose Quadriv alent Inactivated 02/08/2023,2020 Influenza, Inactivated AIIV4 (Age 65+ Years) Preserv Free 02/08/2023,12/29/2021 Influenza, Inactivated IIV3 (Age 65+ Years) Preserv Free 01/08/2024,12/31/2018 Pneumococcal Poly,23-Valent (Pneumovax) 09/17/2018 Pneumococcal conj 13-Valent (Prevnar 13) 09/16/2016 Pneumococcal, Unspecified 09/16/2016 Tdap 03/11/2021 Tuberculin (PPD) 10/06/2020 Tuberculin Skin Test, Unspecified 06/20/2023,,05/13/2017 Zoster (Shingrix-RZV, recombinant) 03/11/2021, Family History Medical History Relation Name Comments No Known Problems Brother Other Father prostate proble m No Known Problems Maternal Grandfather No Known Problems Maternal Grandmother Dementia Mother Cancer-breast Other 1 pat cousin Cancer-breast Other 2 Maternal Great Aunt Cancer-breast Paternal Aunt No Known Problems Paternal Grandfather No Known Problems Paternal Grandmother Deep vein thrombosis Sister Food intolerance Sister Cancer No Family History male cousi n cancer of the femur Cancer-ovarian No Family History Relation Name Status Comments Brother Father Maternal Grandfather Maternal Grandmother Mother Other 1 Other 2 Paternal Aunt Paternal Grandfather Paternal Grandmother Sister Social History Tobacco Use Types Packs/Day Years Used Date Smoking Tobacco: Former Cigarettes 0.5 11.4 0 10/02/1964 - 03/14/1976 Smokeless Tobacco: Never Tobacco Cessation:Counseling Given: No Comments:no exposure Alcohol Use Standard Drinks/Week Comments Not Currently 0 (1 standard drink = 0.6 oz pur e alcohol) rarely [facility] Utilities Answer Date Recorded Do you have trouble paying f or utilities (for example, heat, electricity, water, phone)? Yes 01/04/2024 PHQ-2 Answer Date Recorded PHQ-2 TOTAL SCORE 0 02/08/2023 Social Connections Answer Date Recorded Do you often feel lonely or isolated from those around you? 4 01/04/2024 Financial Resource Strain Answer Date R ecorded Difficulty of Paying Living Expenses 3 02/08/2023 Difficulty of Paying Living Expenses Not on file 02/08/2023 Food Insecurity Answer Date Recorded Do you worry your food will run out before you are able to buy more? 1 01/04/2024 Transportation Needs Answer Date Record ed Does lack of transportation keep you from medica l appointments? 1 01/04/2024 Does lack of transportation keep you from work, meetings or getting things that you need? 1 01/04/2024 Housing Stability Answer Date Recorded What is your housing situation today? 1 01/04/2024 Interpersonal Safety Answer Date Record ed Are you being hit, kicked, p ushed or yelled at (see row info)? No 01/04/2024 Interpersonal Safety Abuse 12 - 18 Not on file 01/04/2024 Interpersonal Safety Ambulatory Vulnerability No t on file 01/04/2024 Comments No Sex and Gender Information Value Date Recorded Sex Assigned at Female 02/16/2021 10:41 AM LEATHER TOOLER Legal Sex Female 1:45 PM CDT Gender Identity Female 02/16/2021 10:43 AM LEATHER TOOLER Sexual Orientation Straight 02/16/2021 10 :41 AM LEATHER TOOLER Obstetrics History Last Filed Vital Signs Vital Sign Reading Time Taken Comments Blood Pressure 143/88 03/15/2024 2:19 PM LEATHER TOOLER Pulse 93 03/15/2024 2:19 PM LEATHER TOOLER Temperature 36.5 C (97.7 F) 03/12/2024 2:34 PM LEATHER TOOLER Respiratory Rate 16 03/12/2024 2:34 PM LEATHER TOOLER Oxygen Saturation 99% 03/15/2024 2:19 PM LEATHER TOOLER Inhaled Oxygen Concentration - - Weight 60.2 kg (132 lb 12.8 oz) 024 12:15 PM LEATHER TOOLER Height 165.1 cm (5' 5) 02/15/2024 12:1 5 PM LEATHER TOOLER Body Mass Index 22.1 02/15/2024 12:15 PM LEATHER TOOLER Plan of Treatment Upcoming Encounters Date Type Department Care Team (Latest Contact Info) Description 03/20/2024 8:31 AM LEATHER TOOLER Hospital Encounter [facility] [address] [place] [address] Ruben Marin MD [address] [place], [place] [phone] 03/20/2024 8:31 AM LEATHER TOOLER - 03/20/2024 10:11 AM LEATHER TOOLER Surgery [facility] [address] [place] [address] Ruben Marin MD [address] [place] [address] CYSTOSCOPY, RIGHT URETEROSCOPY, HOLMIUM LASER LITHOTRIPSY Scheduled Procedures Name Priority Associated Diagnoses Date/Ti me CYSTOSCOPY URETEROSCOPY LASER Tier 2 N20.0- kidney stones 03/20/2024 8:31 AM LEATHER TOOLER CYSTOSCOPY REMOVAL URETERAL STENT Tier 2 N20.0- kidney stones 03/20/2024 8:31 AM LEATHER TOOLER Health Maintenance Due Date Last Done Comments DEXA/DXA scan for age 65+ 2010 RSV vaccine for adults or (1 - 1-dose 75+ series) 2020 BMI (ht and wt on same day) for age 18+ 12/28/2021 12/28/2020, 12/09/2019, 12/31/2018, Additional history exists Medicare Wellness for age 65+ 02/09/2024, 12/28/2020, 12/09/2019 Depression screening for age 12+ 02/12/2024 02/11/2023, 02/08/2023, 12/28/2020, Additional history exists Tetanus booster 03/11/2031 03/11/2021 Pneumococcal series for age 50+ Completed 09/17/2018, 09/16/2016, 09/16/2016 Hepatitis C screening for ag e 18-79 Completed 12/28/2020 Tdap Completed 03/11/2021 Zoster (shingles) series for age 50+ Completed 03/11/2021, 10/21/2020 COVID-19 vaccine series Completed 01/08/20 24, 02/08/2023, 02/08/2023, Additional history exists Influenza for age 65+ Completed 01/08/2024 , 02/08/2023, 02/08/2023, Additional history exists Medical Devices Implanted Type Area Meat Packer Device Identifier Shelf Expiration Date Model / Serial / Lot Cmnt Bone Simplex Atb Tobramycin - [id number] Implanted:Qty: 1 on 05/10/2022 by Eber Tam MD at [facility] Left: Hip [facility] 08/11/2023 6197-9-001 / / [id number] Cmnt Bone Simplex Atb Tobramycin - [id number] Implanted:Qty: 1 on 05/10/2022 by Eber Tam MD at [facility] Left: Hip [facility] 08/11/2023 6197-9-001 / / [id number] Cmnt Bone Simplex Atb Tobramycin - [id number] Implanted:Qty: 2 on 07/18/2022 by Eber Tam MD at [facility] Left: Hip [facility] 12/11/2023 6197-9-001 / / [id number] Trident Tritanium Multihole Acetabular Shell Implanted:Qty: 1 on 07/18/2022 by Eber Tam MD at [facility] Left: Hip [facility] 06/30/2026 [id number] / / [id number] Screw Hip 6.5x35mm [place] Low Profile Hex - [id number] Implanted:Qty: 1 on 07/18/2022 by Eber Tam MD at [facility] Left: Hip [facility] 09/03/2025 8088-4146 / / [id number] Screw Hip 6.5x30mm [place] Low Profile Hex - [id number] Implanted:Qty: 1 on 07/18/2022 by Eber Tam MD at [facility] Left: Hip [facility] 08/10/2026 7953-7203 / / [id number] Screw Hip 6.5x20mm [place] Low Profile Hex - [id number] Implanted:Qty: 1 on 07/18/2022 by Eber Tam MD at [facility] Left: Hip [facility] 03/23/2027 2528-0002 / / [id number] Screw Hip 6.5x25mm [place] Low Profile Hex - [id number] Implanted:Qty: 1 on 07/18/2022 by Eber Tam MD at [facility] Left: Hip [facility] 09/15/2026 7303-3177 / / [id number] Cmnt Bone Simplex Atb Tobramycin - [id number] Implanted:Qty: 1 on 07/18/2022 by Eber Tam MD at [facility] Left: Hip [facility] 08/11/2023 6197-9-001 / / [id number] Gmrs Extension Piece Implanted:Qty: 1 on 07/18/2022 by Eber Tam MD at [facility] Left: Hip [facility] 05/10/2025 [id number] / / [id number] Gmrs Extension Piece Implanted:Qty: 1 on 07/18/2022 by Eber Tam MD at [facility] Left: Hip [facility] 06/13/2025 [id number] / / [id number] Gmrs Proximal Femoral Component Implanted:Qty: 1 on 07/18/2022 by Eber Tam MD at [facility] Left: Hip [facility] 03/22/2027 [id number] / / [id number] Stem Hip [id number] Gmrs W/O Body Titnm - [id number] Implanted:Qty: 1 on 07/18/2022 by Eber Tam MD at [facility] Left: Hip [facility] 05/19/2027 [id number] / / [id number] Head Hip Od28mm -4 Biolox Delta C-Taper Alumina Cer - [id number] Implanted:Qty: 1 on 07/18/2022 by Eber Tam MD at [facility] Left: Hip [facility] 04/14/2027 6570-0-028 / / [id number] Insert Acetab X3 Latter-Day Adm - [id number] Implanted:Qty: 1 on 07/18/2022 by Eber Tam MD at [facility] Left: Hip [facility] 01/08/2027 7236-2-852 / / [id number] Liner Hip Id42 Od48.5mm Trident - [id number] Implanted:Qty: 1 on 11/18/2022 by Eber Tam MD at [facility] Left: Hip [facility] 01/06/2025 690-00-28F / / [id number] Head Hip Od28mm -4 V40 Co Cr - [id number] Implanted:Qty: 1 on 11/18/2022 by Eber Tam MD at [facility] Left: Hip [facility] 09/05/2027 6260-5-028 / / [id number] Stent Uret 6bud63hb Contour - [id number] Implanted:Qty: 1 on 01/03/2024 by Ruben Marin MD at [facility] Right: Ureter [facility] 09/25/2026 [id number] / / [id number] Explanted Type Area Meat Packer Device Identifier Shelf Expiration Date Model / Serial / Lot Screw Sm Joint 6.5x30mm Canclls Bone - [id number] Implanted:Qty: 1 on 05/10/2017 by Eber Tam MD at [facility] Explanted:Qty: 1 on 05/14/2021 by Eber Tam MD at [facility] Ortho Imp.,Screw s & Plates Left: Hip [facility] 12/12/2021 3165-7548-1 # / / [id number] Screw Sm Joint 6.5x25mm Canclls Bone - [id number] Implanted:Qty: 1 on 05/10/2017 by Eber Tam MD at [facility] Explanted:Qty: 1 on 05/14/2021 by Eber Tam MD at [facility] Ortho Imp.,Screw s & Plates Left: Hip [facility] 03/15/202220292913-2354-1 # / / [id number] Screw Sm Joint 6.5x25mm Canclls Bone - [id number] Implanted:Qty: 1 on 05/10/2017 by Eber Tam MD at [facility] Explanted:Qty: 1 on 05/14/2021 by Eber Tam MD at [facility] Ortho Imp.,Screw s & Plates Left: Hip [facility] 12/15/202120291843-6996-1 # / / [id number] Wire K 3.6h628fa - [id number] Explanted:Qty: 1 on 08/13/2016 by Miri Mccain MD at [facility] Left: Hip [facility] 04/12/2021 1210-6450S# / / [id number] Guidewire Ball Tip 7w6247qh - [id number] Explanted:Qty: 1 on 08/13/2016 by Miri Mccain MD at [facility] Left: Hip [facility] 06/10/2021 1806-0085S# / / [id number] Wire K 7y566vq - [id number] Explanted:Qty: 1 on 08/13/2016 by Miri Mccain MD at [facility] Left: Hip [facility] 04/12/2021 1806-0050S# / / [id number] Wire K 1h491js - [id number] Explanted:Qty: 1 on 08/13/2016 by Miri Mccain MD at [facility] Left: Hip [facility] 05/10/2021 1806-0050S# / / [id number] Nail Fem Lt 70p634hv 125deg Gamma 3 Titnm Strl - [id number] Implanted:Qty: 1 on 08/13/2016 by Miri Mccain MD at [facility] Explanted:Qty: 1 on 05/10/2017 by Eber Tam MD at [facility] Left: Hip [facility] 04/12/2021 3525-0380S# / / [id number] Screw Fem 10.5x90mm Gamma3 Lag - [id number] Implanted:Qty: 1 on 08/13/2016 by Miri Mccain MD at [facility] Explanted:Qty: 1 on 05/10/2017 by Eber Tam MD at [facility] Left: Hip [facility] 04/12/2021 3060-0090S# / / [id number] Trident Acetabular Shell Implanted:Qty: 1 on 05/10/2017 by Eber Tam MD at [facility] Explanted:Qty: 1 on 05/14/2021 by Eber Tam MD at [facility] Left: Hip [facility] 02/01/2022 508-11-52E / / [id number] Screw Sm Joint 6.5x20mm Canclls Bone - [id number] Implanted:Qty: 1 on 05/10/2017 by Eber Tam MD at [facility] Explanted:Qty: 1 on 05/14/2021 by Eber Tam MD at [facility] Left: Hip [facility] 06/14/2021- # / / [id number] Screw Sm Joint 6.5x20mm Canclls Bone - [id number] Implanted:Qty: 1 on 05/10/2017 by Eber Tam MD at [facility] Explanted:Qty: 1 on 05/14/2021 by Eber Tam MD at [facility] Left: Hip [facility] 02/07/2022- # / / [id number] Screw Sm Joint 6.5x20mm Can[place]ls Bone - [id number] Implanted:Qty: 1 on 05/10/2017 by Eber Tam MD at [facility] Explanted:Qty: 1 on 05/14/2021 by Eber Tam MD at [facility] Left: Hip [facility] 02/09/2021 3727-1636-1 # / / [id number] Trident Constrained Acetabular Insert Implanted:Qty: 1 on 05/10/2017 by Eber Tam MD at [facility] Explanted:Qty: 1 on 05/14/2021 by Eber Tam MD at [facility] Left: Hip [facility] 10/14/2021 690-00-22E / / [id number] Cmnt Restrictor Hip 18.5mm Guzman - [id number] Implanted:Qty: 1 on 05/10/2017 by Eber Tam MD at [facility] Explanted:Qty: 1 on 05/14/2021 by Eber Tam MD at [facility] Left: Hip [facility] 10/11/2026 12-9418# / / [id number] Stem Hip Sz6 132deg Omnifit [place] Co Cr - [id number] Implanted:Qty: 1 on 05/10/2017 by Eber Tam MD at [facility] Explanted:Qty: 1 on 05/14/2021 by Eber Tam MD at [facility] Left: Hip [facility] 12/24/2019 3902-7914# / / [id number] Spacer Hip 10mm Accolade - [id number] Implanted:Qty: 1 on 05/10/2017 by Eber Tam MD at [facility] Explanted:Qty: 1 on 05/14/2021 by Eber Tam MD at [facility] Left: Hip [facility] 11/23/2020 6956-5515# / / [id number] Head Hip Od22mm +0 Lfit C-Taper Co Cr - [id number] Implanted:Qty: 1 on 05/10/2017 by Eber Tam MD at [facility] Explanted:Qty: 1 on 05/14/2021 by Eber Tam MD at [facility] Left: Hip [facility] 01/10/2019 06-2200# / / [id number] Bone Matrix 20cc Stimulan Kit Rapid Cure - [id number] Implanted:Qty: 1 on 04/16/2021 by Eber Tam MD at [facility] Explanted:Qty: 1 on 05/14/2021 by Eber Tam MD at [facility] Left: Hip [employer] 11/11/2023 620-020 / / [id number] Cmnt Bone Simplex Atb Tobramycin - [id number] Implanted:Qty: 1 on 05/10/2017 by Eber Tam MD at [facility] Explanted:Qty: 1 on 05/14/2021 by Eber Tam MD at [facility] Left: Hip [facility] 11/10/2018 6197-9-001# / / [id number] Cmnt Bone Simplex Atb Tobramycin - [id number] Implanted:Qty: 1 on 05/10/2017 by Eber Tam MD at [facility] Explanted:Qty: 1 on 05/14/2021 by Eber Tam MD at [facility] Left: Hip [facility] 09/09/2018 6197-9-001# / / [id number] Cmnt Bone 20g Simplex P Non Atb Mv - [id number] Implanted:Qty: 1 on 05/10/2017 by Eber Tam MD at [facility] Explanted:Qty: 1 on 05/14/2021 by Eber Tam MD at [facility] Left: Hip [facility] 08/11/2019 6188-1-010# / / [id number] Cmnt Bone Simplex P 1pk - [id number] Implanted:Qty: 3 on 05/14/2021 by Eber Tam MD at [facility] Explanted:Qty: 3 on 07/10/2021 by Eber Tam MD at [facility] Left: Hip [facility] 08/10/2022 6191-1-001 / / [id number] Cable Hip 2mm [facility] Beaded Vitallium - [id number] Implanted:Qty: 2 on 05/14/2021 by Eber Tam MD at [facility] Explanted:Qty: 2 on 07/10/2021 by Eber Tam MD at [facility] Left: Hip [facility] 03/07/2026 6704-0-520 / / [id number] Cable Hip 2mm [place] [employer]ed Vitallium - [id number] Implanted:Qty: 1 on 05/14/2021 by Eber Tam MD at [facility] Explanted:Qty: 1 on 07/10/2021 by Eber Tam MD at [facility] Left: Hip [facility] 03/07/2026 6704-0-520 / / [id number] [place] Cemented Standard Collar Femoral Component, Size 12, 225mm Length Implanted:Qty: 1 on 05/14/2021 by Eber Tam MD at [facility] Explanted:Qty: 1 on 07/10/2021 by Eber Tam MD at [facility] Left: Hip [facility] 02/10/2024 85835866 / / [id number] Head Modular 40mm Oxin - [id number] Implanted:Qty: 1 on 05/14/2021 by Eber Tam MD at [facility] Explanted:Qty: 1 on 07/10/2021 by Eber Tam MD at [facility] Left: Hip [facility] 11/14/2026 30655008 / / [id number] Sleeve Hip +0 Neck Shrt Mod Titnm Oxin - [id number] Implanted:Qty: 1 on 05/14/2021 by Eber Tam MD at [facility] Explanted:Qty: 1 on 07/10/2021 by Eber Tam MD at [facility] Left: Hip [facility] 01/15/2025 32012575 / / [id number] Cmnt Bone Simplex Atb Tobramycin - [id number] Implanted:Qty: 1 on 06/21/2021 by Eber Tam MD at [facility] Explanted:Qty: 1 on 07/10/2021 by Eber Tam MD at [facility] Left: Hip [facility] 09/09/2022 6197-9-001 / / [id number] Cmnt Bone Simplex Atb Tobramycin - [id number] Implanted:Qty: 1 on 06/21/2021 by Eber Tam MD at [facility] Explanted:Qty: 1 on 07/10/2021 by Eber Tam MD at [facility] Left: Hip [facility] 11/10/2022 6197-9-001 / / [id number] Remedy Acetabular Cup 40mm Id / 48mm Od Implanted:Qty: 1 on 06/21/2021 by Eber Tam MD at [facility] Explanted:Qty: 1 on 07/10/2021 by Eber Tam MD at [facility] Left: Hip [facility] 10/10/2024 RHACXS / / [id number] Description:OSTEOREMEDIES Cmnt Bone 20g Simplex P Non Atb Mv - [id number] Implanted:Qty: 1 on 06/21/2021 by Eber Tam MD at [facility] Explanted:Qty: 1 on 07/10/2021 by Eber Tam MD at [facility] Left: Hip [facility] 6188-1-001 / / Description:Only Used the mo nomer out of the set Remedy Spectrm Gv, Modular Femoral Head Implanted:Qty: 1 on 06/21/2021 by Eber Tam MD at [facility] Explanted:Qty: 1 on 07/10/2021 by Eber Tam MD at [facility] Left: Hip [facility] 03/12/2025 GVHDXS / / [id number] Remedy Modular Stem Implanted:Qty: 1 on 06/21/2021 by Eber Tam MD at [facility] Explanted:Qty: 1 on 07/10/2021 by Eber Tam MD at [facility] Left: Hip [facility] 04/12/2025 RHSTSM / / [id number] Cmnt Bone Simplex Atb Tobramycin - [id number] Implanted:Qty: 1 on 07/10/2021 by Eber Tam MD at [facility] Explanted:Qty: 1 on 09/06/2021 by Eber Tam MD at [facility] Left: Hip [facility] 09/09/2022 6197-9-001 / / [id number] Cmnt Bone Simplex Atb Tobramycin - [id number] Implanted:Qty: 1 on 07/10/2021 by Eber Tam MD at [facility] Explanted:Qty: 1 on 09/06/2021 by Eber Tam MD at [facility] Left: Hip [facility] 12/10/2022 6197-9-001 / / [id number] Cmnt Bone Simplex Atb Tobramycin - [id number] Implanted:Qty: 1 on 07/10/2021 by Eber Tam MD at [facility] Explanted:Qty: 1 on 09/06/2021 by Eber Tam MD at [facility] Left: Hip [facility] 08/10/2022 6197-9-001 / / [id number] Pin Delores 3.6gul6xe Threaded - [id number] Implanted:Qty: 1 on 07/10/2021 by Eber Tam MD at [facility] Explanted:Qty: 1 on 09/06/2021 by Eber Tam MD at [facility] Left: Hip [employer] 00-0262-004 -04 / / Remedy Acetabular Cup 40mm Id/48mm Od Implanted:Qty: 1 on 05/14/2021 by Eber Tam MD at [facility] Explanted:Qty: 1 on 11/18/2022 at [facility] Left: Hip [facility] 10/10/2024 RHACXS / / [id number] Description:previous surgery Delores Pin, Unthreaded, Implanted:Qty: 1 on 05/10/2022 by Eber Tam MD at [facility] Explanted:Qty: 1 on 11/18/2022 at [facility] Left: Hip Description:previous surgery Liner Hip Id46mm Sz C Mdmx3 Cocr - [id number] Implanted:Qty: 1 on 07/18/2022 by Eber Tam MD at [facility] Explanted:Qty: 1 on 11/18/2022 by Eber Tam MD at [facility] Left: Hip [facility] 04/20/2027 [id number] / / [id number] Procedures Procedure Name Priority Date/Time Associated Diagnosis Comments TSH WITH REFLEX Routine 03/15/2024 3:12 PM [facility]ATHER TOOLER Hypothyroidism, unspecified type BASIC METABOLIC PANEL Routine 03/15/2024 3:12 PM [facility]ATHER TOOLER Hyponatremia SCAN-LABORATORY REPORT 12:00 AM LEATHER TOOLER CREATININE Routine 01/29/2024 10:41 AM LEATHER TOOLER Infection of prosthetic hip joint, subsequent encounter CBC WITH AUTO DIFFERENTIAL Routine 01/29/2024 10:41 AM LEATHER TOOLER Infection of prosthetic hip joint, subsequent encounter HEPATIC FUNCTION PANEL Routine 10:41 AM LEATHER TOOLER Infection of prosthetic hip joint, subsequent encounter C-REACTIVE PROTEIN Routine 01/29/2024 10 :41 AM LEATHER TOOLER Infection of prosthetic hip joint, subsequent encounter CBC WITH AUTO DIFFERENTIAL STAT 01/23/2024 3:36 PM LEATHER TOOLER 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, initial encounter (HC) BASIC METABOLIC PANEL STAT 01/23/2024 3:36 PM LEATHER TOOLER 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, initial encounter (HC) CBC WITH AUTO DIFFERENTIAL STAT 01/23/2024 3:36 PM LEATHER TOOLER 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, initial encounter (HC) SCAN CORRESP-LABORATORY RESULTS 01/15/2024 1:53 PM LEATHER TOOLER T4,FREE Early AM 01/11/2024 6:19 AM CDT TSH Early AM 01/11/2024 6:19 AM CDT SODIUM Today 01/08/2024 12:36 PM CDT TSH Today 01/08/2024 12:36 PM CDT SODIUM Early AM 01/07/2024 7:03 AM CDT CLOSTRIDIOIDES DIFFICILE TOXIN PCR Today 01/06/2024 10:08 AM CDT CREATININE Early AM 01/06/2024 6:17 AM CDT SODIUM Early AM 01/06/2024 6:17 AM CDT SODIUM Timed 01/05/2024 9:27 PM CDT SODIUM Timed 01/05/2024 10:33 AM CDT SODIUM Timed 01/05/2024 6:13 AM CDT TSH Early AM 01/05/2024 6:13 AM CDT PLATELET COUNT Timed 01/05/2024 6:13 AM CDT SODIUM Timed 01/05/2024 2:56 AM CDT SODIUM Timed 01/04/2024 9:06 PM CDT URINALYSIS MICROSCOPIC Timed 7:48 PM CDT UA W/ SEDIMENT EXAM REFLEXED PER CRITERIA Today 01/04/2024 7:48 PM CDT SODIUM Timed 01/04/2024 2:48 PM CDT SCAN CORRESP-IMAGING 01/04/2024 11:59 AM CDT SODIUM STAT 01/04/2024 8:56 AM CDT CREATININE Early AM 01/04/2024 6:24 AM CDT SODIUM Early AM 01/04/2024 6:24 AM CDT XR RETROGRADE PYELOGRAM W/WO KUB Routine 01/03/2024 11:41 AM CDT ENDOTRACHEAL TUBE Routine 01/03/2024 11: 17 AM CDT CYSTOSCOPY PLACEMENT URETERAL STENT RETROGRADES 01/03/2024 10:34 AM CDT Right kidney stone SODIUM Timed 01/03/2024 6:21 AM CDT T3,TOTAL CIARAN 01/03/2024 12:04 AM CDT T4,FREE Today 01/03/2024 12:04 AM CDT TSH Today 01/03/2024 12:04 AM CDT CREATININE CIARAN 01/03/2024 12:04 AM CDT POTASSIUM CIARAN 01/03/2024 12:04 AM CDT SODIUM CIARAN 01/03/2024 12:04 AM CDT SCAN-CARDIAC STRIP 01/02/2024 12 :00 AM CDT CBC WITH AUTO DIFFERENTIAL STAT 01/01/2024 1:45 PM CDT 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, initial encounter (HC) VANCOMYCIN TROUGH Routine 01/01/2024 1:4 5 PM CDT 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, initial encounter (HC) C-REACTIVE PROTEIN Routine 01/01/2024 1: 45 PM CDT 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, initial encounter (HC) CK TOTAL Routine 01/01/2024 1:45 PM CDT 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, initial encounter (HC) BASIC METABOLIC PANEL Routine 01/01/2024 1:45 PM CDT 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, initial encounter (HC) CBC WITH AUTO DIFFERENTIAL STAT 01/01/2024 1:45 PM CDT 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, initial encounter (HC) CBC WITH AUTO DIFFERENTIAL Routine 12/26/2023 12:20 PM CDT 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, initial encounter (HC) VANCOMYCIN TROUGH Routine 12/26/2023 12: 20 PM CDT 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, initial encounter (HC) C-REACTIVE PROTEIN Routine 12/26/2023 12 :20 PM CDT 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, initial encounter (HC) CBC WITH AUTO DIFFERENTIAL Routine 12/26/2023 12:20 PM CDT 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, initial encounter (HC) MAGNESIUM Routine 12/26/2023 12:20 PM CDT 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, initial encounter (HC) BASIC METABOLIC PANEL Routine 12/26/2023 12:20 PM CDT 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, initial encounter (HC) CBC WITH AUTO DIFFERENTIAL Routine 12/25/2023 2:25 PM CDT 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, initial encounter (HC) CBC WITH AUTO DIFFERENTIAL Routine 12/25/2023 2:25 PM CDT 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, initial encounter (HC) C-REACTIVE PROTEIN Routine 12/25/2023 2: 25 PM CDT 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, initial encounter (HC) CK TOTAL Routine 12/25/2023 2:25 PM CDT 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, initial encounter (HC) BASIC METABOLIC PANEL Routine 12/25/2023 2:25 PM CDT 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, initial encounter (HC) VANCOMYCIN TROUGH Routine 12/25/2023 2:2 5 PM CDT 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, initial encounter (HC) RED CELL MORPHOLOGY Routine 12/20/2023 1 0:08 AM CDT 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, initial encounter (HC) PLATELET ESTIMATE Routine 12/20/2023 10: 08 AM CDT 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, initial encounter (HC) MANUAL DIFFERENTIAL Routine 12/20/2023 1 0:08 AM CDT 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, initial encounter (HC) CBC WITH AUTO DIFFERENTIAL Routine 12/20/2023 10:08 AM CDT 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, initial encounter (HC) CBC WITH AUTO DIFFERENTIAL Routine 12/20/2023 10:08 AM CDT 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, initial encounter (HC) BASIC METABOLIC PANEL Routine 12/20/2023 10:08 AM CDT 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, initial encounter (HC) C-REACTIVE PROTEIN Routine 12/19/2023 4: 25 AM CDT 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, initial encounter (HC) VANCOMYCIN TROUGH Routine 12/19/2023 4:2 5 AM CDT 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, initial encounter (HC) BASIC METABOLIC PANEL STAT 12/19/2023 4:25 AM CDT 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, initial encounter (HC) ANTI HCV Routine 12/28/2020 11:38 AM CDT Encounter for hepatitis C screening test for low risk patient from Last 3 Months or Most Recently Relevant to Health Maintenance Results * TSH WITH REFLEX (03/15/2024 3:12 PM LEATHER TOOLER) TSH W/REFLEX TO FT4 0.43 0.40 - 4.50 mIU/L [facility] Blood BLOOD SPECIMEN / Unknown 03/15/2024 3:12 PM LEATHER TOOLER 03/15/2024 3:12 PM LEATHER TOOLER Bobbi Santa MD CHEMISTRY Fi nal Result [facility] [address] [place] [address], [facility] [address] [place] [address] * (ABNORMAL) BASIC METABOLIC PANEL (03/15/2024 3:12 PM LEATHER TOOLER) Only the most recent of7 resultswithin the time period is included. Pathologist [facility] GLUCOSE 79 65 - 99 mg/dL [facility] Comment: Fasting reference interval UREA NITROGEN (BUN) 43(H) 7 - 25 mg/dL [facility] CREATININE 1.80(H) 0.60 - 1.00 mg/dL [facility] EGFR 28(L) > OR = 60 mL/min/1.7 3m2 [facility] BUN/CREATININE RATIO 24(H) 6 - 22 (calc) [facility] SODIUM 141 135 - 146 mmol/L [facility] POTASSIUM 4.1 3.5 - 5.3 mmol/L [facility] CHLORIDE 107 98 - 110 mmol/L [facility] CARBON DIOXIDE 19(L) 20 - 32 mmol/L [facility] ELECTROLYTE BALANCE 15 7 - 17 mmol/L (calc) [facility] CALCIUM 10.4 8.6 - 10.4 mg/dL [facility] Blood BLOOD SPECIMEN / Unknown 03/15/2024 3:12 PM [facility] [employer] 03/15/2024 3:12 PM [facility] [employer] Bobbi Santa MD CHEMISTRY Fi nal Result Performing Organization Address [facility] Co de Phone Number [employer] [facility] [address] [place] [id number], [place] [phone] [facility] [address] [place] [address] * SCAN-LABORATORY REPORT (02/07/2024 12:00 AM LEATHER TOOLER) Scanner OTHER Final Result * (ABNORMAL) CREATININE (01/29/2024 10:41 AM LEATHER TOOLER) Only the most recent of4 resultswithin the time period is included. CREATININE 1.05(H) 0.60 - 1.00 mg/dL [facility] EGFR 54(L) > OR = 60 mL/min/1.73 m2 [facility] od Manjit Blood BLOOD SPECIMEN / Unknown 01/29/2024 10:41 AM LEATHER TOOLER 01/29/2024 10:42 AM LEATHER TOOLER Costa Flores MD CHEMISTRY Final Res ult Performing Organization Address [facility] de Phone Number [employer] [facility] [address] [place] [address], [place] [phone] [facility] [address] [place] [address] * (ABNORMAL) C-REACTIVE PROTEIN (01/29/2024 10:41 AM LEATHER TOOLER) Only the most recent of5 resultswithin the time period is included. C-REACTIVE PROTEIN 8.6(H) <8.0 mg/L [facility] Blood BLOOD SPECIMEN / Unknown 01/29/2024 10:41 AM LEATHER TOOLER 01/29/2024 10:42 AM LEATHER TOOLER Costa Flores MD CHEMISTRY Final Res ult Performing Organization Address City/[facility]/ZIP Co de Phone Number [employer] [facility] [address] [place] [address], [employer] [address] [place] [address] * (ABNORMAL) CBC AND DIFFERENTIAL (01/29/2024 10:41 AM LEATHER TOOLER) WHITE BLOOD CELL COUNT 8.3 3.8 - 10.8 Thousand/u L [facility] RED BLOOD CELL COUNT 3.90 3.80 - 5.10 Million/uL [facility] HEMOGLOBIN 11.8 11.7 - 15.5 g/dL [facility] HEMATOCRIT 36.2 35.0 - 45.0 % [facility] MCV 92.8 80.0 - 100.0 fL [facility] MCH 30.3 27.0 - 33.0 pg [facility] MCHC 32.6 32.0 - 36.0 g/dL [facility] Comment: For adults, a slight decrease in the calculated MCHC value (in the range of 30 to 32 g/dL) is most likely not clinically significant; however, it should be interpreted with caution in correlation with other red cell parameters and the patient's clinical condition. RDW 13.3 11.0 - 15.0 % [facility] PLATELET COUNT 291 140 - 400 Thousand/u L [facility] MPV 10.9 7.5 - 12.5 fL [facility] ABSOLUTE NEUTROPHILS 6,781 1,500 - 7,800 cells/uL [facility] ABSOLUTE LYMPHOCYTES 838(L) 850 - 3,900 cells/uL [facility] ABSOLUTE MONOCYTES 589 200 - 950 cells/uL [facility] ABSOLUTE EOSINOPHILS 42 15 - 500 cells/uL [facility] ABSOLUTE BASOPHILS 50 0 - 200 cells/uL [facility] NEUTROPHILS 81.7 % [facility] LYMPHOCYTES 10.1 % [facility] MONOCYTES 7.1 % [facility] EOSINOPHILS 0.5 % [facility] BASOPHILS 0.6 % [facility] Blood BLOOD SPECIMEN / Unknown 01/29/2024 10:41 AM LEATHER TOOLER 01/29/2024 10:42 AM LEATHER TOOLER Costa lFores MD HEMATOLOGY Final Res ult Performing Organization Address [facility]/ZIP Co de Phone Number [facility] [address] [place] [address], [facility] [address] [place] [address] * (ABNORMAL) HEPATIC FUNCTION PANEL (01/29/2024 10:41 AM LEATHER TOOLER) PROTEIN, TOTAL 4.9(L) 6.1 - 8.1 g/dL [facility] ALBUMIN 2.5(L) 3.6 - 5.1 g/dL [facility] GLOBULIN 2.4 1.9 - 3.7 g/dL (calc) [facility] ALBUMIN/GLOBULIN RATIO 1.0 1.0 - 2.5 (calc) [facility] BILIRUBIN, TOTAL 1.0 0.2 - 1.2 mg/dL [facility] BILIRUBIN, DIRECT 0.4(H) < OR = 0.2 mg/dL [facility] BILIRUBIN, INDIRECT 0.6 0.2 - 1.2 mg/dL (calc) [facility] ALKALINE PHOSPHATASE 98 37 - 153 U/L [facility] AST 41(H) 10 - 35 U/L [facility] ALT 18 6 - 29 U/L [facility] Blood BLOOD SPECIMEN / Unknown 01/29/2024 10:41 AM LEATHER TOOLER 01/29/2024 10:42 AM LEATHER TOOLER Costa Flores MD CHEMISTRY Final Res ult [facility] [address] [place] [address], [facility] [address] [place] [address] * CBC WITH AUTO DIFFERENTIAL (01/23/2024 3:36 PM [facility]) Only the most recent of5 resultswithin the time period is included. WHITE BLOOD COUNT 6.4 4.5 - 11.0 thou/cu mm 01/23/2024 4:08 PM [facility] RED BLOOD COUNT 4.03 4.00 - 5.20 mil/cu mm 01/23/2024 4:08 PM [facility] HEMOGLOBIN 12.4 12.0 - 16.0 g/dL 01/23/2024 4:08 PM [facility] HEMATOCRIT 36.4 33.0 - 51.0 % 01/23/2024 4:08 PM [facility] MCV 90 80 - 100 fL 01/23/2024 4:08 PM [facility] MCH 30.8 26.0 - 34.0 pg 01/23/2024 4:08 PM [facility] MCHC 34.1 32.0 - 36.0 g/dL 01/23/2024 4:08 PM [facility] RDW 15.3 11.5 - 15.5 % 01/23/2024 4:08 PM [facility] PLATELET COUNT 329 140 - 440 thou/cu mm 01/23/2024 4:08 PM [facility] MPV 10.6 6.5 - 11.0 fL 01/23/2024 4:08 PM [facility] NRBC 0.0 % 01/23/2024 4:08 PM [facility] ABS NRBC 0.0 thou /cu mm 01/23/2024 4:08 PM [facility] % NEUT 72.6 % 01/23/2024 4:08 PM [facility] % LYMPH 15.6 % 01/23/2024 4:08 PM [facility] % MONO 9.7 % 01/23/2024 4:08 PM [facility] % EOS 0.9 % 01/23/2024 4:08 PM [facility] % BASO 0.9 % 01/23/2024 4:08 PM LEATHER TOOLER [facility] % IMMATURE GRAN (METAS,MYELOS,CO OS) 0.3 % 01/23/2024 4:08 PM LEATHER TOOLER [facility] ABSOLUTE NEUTROPHILS 4.6 1.7 - 7.0 thou/cu mm 01/23/2024 4:08 PM LEATHER TOOLER [facility] ABSOLUTE LYMPHOCYTES 1.0 0.9 - 2.9 thou/cu mm 01/23/2024 4:08 PM LEATHER TOOLER [facility] ABSOLUTE MONOCYTES 0.6 <0.9 thou/cu mm 01/23/2024 4:08 PM LEATHER TOOLER [facility] ABSOLUTE EOSINOPHILS 0.1 <0.5 thou/cu mm 01/23/2024 4:08 PM LEATHER TOOLER [facility] ABSOLUTE BASOPHILS 0.1 <0.3 thou/cu mm 01/23/2024 4:08 PM LEATHER TOOLER [facility] ABSOLUTE IMMATURE GRANULOCYTES(MET ,MYELOS,PROS) 0.0 <0.3 thou/cu mm 01/23/2024 4:08 PM [facility] Blood BLOOD SPECIMEN / Unknown [facility] / Unknown 01/23/2024 3:36 PM LEATHER TOOLER 01/23/2024 3:57 PM LEATHER TOOLER Narrative [facility] - 01/23/2024 4:08 PM LEATHER TOOLER This procedure was originally ordered at [facility]. Costa Flores MD HEMATOLOGY Final Res ult [facility] SENDOUT INTERNAL ZIP [id number] [place] [address] * SCAN CORRESP-LABORATORY RESULTS (01/15/2024 1:53 PM LEATHER TOOLER) Narrative 01/15/2024 1:53 PM LEATHER TOOLER Ordered by an unspecified provider. us Other Clinical Staff OTHER Final Resul t * TSH (01/11/2024 6:19 AM CDT) Only the most recent of4 resultswithin the time period is included. TSH 2.04 0.27 - 4.20 uIU/mL 01/11/2024 6:54 AM CDT [facility] Blood BLOOD SPECIMEN / Unknown Non-Lab Venipuncture / Unknown 01/11/2024 6:19 AM CDT 01/11/2024 6:20 AM CDT Narrative [facility] - 01/11/2024 6:54 AM CDT In Adults, TSH values between 5.00 and 10.00 uIU/ml do not necessarily indicate the presence of Hypothyroidism. Correlation with clinical findings such as presence of goiter and/or Thyroperoxidase (TPO) Antibody may be helpful. For more information please refer to TOM 2004; 291: 228-238. Jean-Claude Sheldon MD CHEMISTRY Final Resul t Performing Organization Address City/[facility]/ZIP Co de Phone Number [facility] [address] [address], [place] * T4,FREE (01/11/2024 6:19 AM CDT) Only the most recent of2 resultswithin the time period is included. T4,FREE 1.42 0.93 - 1.70 ng/dL 01/11/2024 6:54 AM CDT [facility] Blood BLOOD SPECIMEN / Unknown Non-Lab Venipuncture / Unknown 01/11/2024 6:19 AM CDT 01/11/2024 6:20 AM CDT Jean-Claude Sheldon MD CHEMISTRY Final Resul t Performing Organization Address City/[facility]/ZIP Co de Phone Number [facility] [address] [address], [place] * SODIUM (01/08/2024 12:36 PM CDT) Only the most recent of13 resultswithin the time period is included. SODIUM 136 136 - 145 mmol/L 01/08/2024 1:23 PM CDT [facility] Blood BLOOD SPECIMEN / Unknown Non-Lab Venipuncture / Unknown 01/08/2024 12:36 PM CDT 01/08/2024 12:51 PM CDT Olivia Cruz MD CHEMISTRY Final Result Performing Organization Address [facility]/ZIP Co de Phone Number [facility] [address] [place] [phone], [place] * CLOSTRIDIOIDES DIFFICILE TOXIN PCR (01/06/2024 10:08 AM CDT) CLOSTRIDIUM DIFFICILE PCR Negative 01/06/2024 12:21 PM CDT [facility] PRESUMPTIVE NAP1 STRAIN Negative 01/06/2024 12:21 PM CDT [facility] Stool STOOL SPECIMEN / Unknown Non-Blood / Unknown 01/06/2024 10:08 AM CDT 01/06/2024 10:16 AM CDT Narrative [facility] - 01/06/2024 12:21 PM CDT The NAP1 (027 or BI) strain is a hypervirulent strain. Detection may be useful for epidemiological purposes. Dona Villagomez MD MICROBIOLOGY Final Result Performing Organization Address [facility] Co de Phone Number [facility] [address] [place], [place] [id number], [place] * PLATELET COUNT (01/05/2024 6:13 AM CDT) Pathologist [facility] PLATELET COUNT 217 140 - 440 thou/cu mm 01/05/2024 6:56 AM CDT [facility] MPV 8.9 6.5 - 11.0 fL 01/05/2024 6:56 AM CDT [facility] Blood BLOOD SPECIMEN / Unknown Non-Lab Venipuncture / Unknown 01/05/2024 6:13 AM CDT 01/05/2024 6:47 AM CDT Dakotah Solano MD HEMATOLOGY Final Resul t Performing Organization Address City/[facility]/ZIP Co de Phone Number [facility] [address] [place] [address], [place] * (ABNORMAL) URINALYSIS MICROSCOPIC (01/04/2024 7:48 PM CDT) RBC >100(A) 0-2, None Seen /HPF 01/04/2024 9:34 PM CDT [facility] WBC 11-25(A) 0-2, 3-5, None Seen /HPF 01/04/2024 9:34 PM CDT [facility] BACTERIA None Seen None Seen, Rare, Few Bacteria/ HPF 01/04/2024 9:34 PM CDT [facility] EPITHELIAL CELLS None Seen None Seen, Few Epi/HPF 01/04/2024 9:34 PM CDT [facility] HYALINE CASTS 0-2 0-2, 3-5 /LPF 01/04/2024 9:34 PM CDT [facility] Urine URINE SPECIMEN / Unknown Non-Blood / Unknown 01/04/2024 7:48 PM CDT 01/04/2024 7:54 PM CDT us Angelika HANNA URINE Final R esult [facility] [address] [place] [address], * (ABNORMAL) UA W/ SEDIMENT EXAM REFLEXED PER CRITERIA (01/04/2024 7:48 PM CDT) COLOR [place](A) Yellow Color 01/04/2024 9:34 PM CDT [facility] CLARITY Cloudy(A) Clear Clarity 01/04/2024 9:34 PM CDT [facility] SPECIFIC GRAVITY,URINE 1.010 1.010, 1.015, 1.020, 1.025 01/04/2024 9:34 PM CDT [facility] PH,URINE 6.5 6.0, 7.0, 8.0, 5.5, 6.5, 7.5, 8.5 01/04/2024 9:34 PM CDT [facility] UROBILINOGEN, QUALITATIVE Normal Normal EU/dl 01/04/2024 9:34 PM CDT [facility] PROTEIN, URINE 100(A) Negative mg/dL 01/04/2024 9:34 PM CDT [facility] GLUCOSE, URINE Negative Negative mg/dL 01/04/2024 9:34 PM CDT [facility] KETONES,URINE Negative Negative mg/dL 01/04/2024 9:34 PM CDT [facility] BILIRUBIN,URI NE Negative Negative 01/04/2024 9:34 PM CDT [facility] OCCULT BLOOD,URINE Large(A) Negative 01/04/2024 9:34 PM CDT [facility] NITRITE Negative Negative 01/04/2024 9:34 PM CDT [facility] LEUKOCYTE ESTERASE Small(A) Negative 01/04/2024 9:34 PM CDT [facility] Urine URINE SPECIMEN / Unknown Non-Blood / Unknown 01/04/2024 7:48 PM CDT 01/04/2024 7:54 PM CDT Angelika HANNA URINE Final R esult [facility] [address] [place] [address], [place] * SCAN CORRESP-IMAGING (01/04/2024 11:59 AM CDT) Anatomical Region Laterality Modality Other Narrative 01/04/2024 11:59 AM CDT Ordered by an unspecified provider. us Other Clinical Staff OTHER Final Resul t * XR RETROGRADE PYELOGRAM W/WO KUB (01/03/2024 11:41 AM CDT) Anatomical Region Laterality Modality KIDNEYS, Abdomen Digital Radiogr aphy Narrative 01/03/2024 11:20 AM CDT 20 seconds fluoroscopy time was provided. See operative/procedure report for further information. us Ruben Marin MD GENERAL IMAGING Final Res ult * ETT (01/03/2024 11:17 AM CDT) Narrative Lucero Gonzales CRNA Student - 01/03/2024 11:17 AM CDT Lucero Gonzales CRNA Student 01/03/2024 11:18 AM Procedure: ETT Patient location during procedure: OR ETT Properties Mask Ventilation: easy Final Technique: direct laryngoscopy Type: straight Location: oral Tube Size: 7.5 mm Stylet: yes Laryngoscope Blade: Granger Blade Size: 2 Cormack-Lehane Grade View: 1 Insertion Attempts: 1 Placement Verification: auscultation, end tidal CO2 and symmetrical chest wall movement Assessment: pharynx clear, atraumatic and dentition unchanged Secured at: 22 Measured From: teeth Difficulty: 0 (not difficult) us Ruby Durham MD ANESTHESIA PX NOTE ORD ERABLES Final Result * POTASSIUM (01/03/2024 12:04 AM CDT) POTASSIUM 4.6 3.5 - 5.1 mmol/L 01/03/2024 12:58 AM CDT [facility] Blood BLOOD SPECIMEN / Unknown Non-Lab Venipuncture / Unknown 01/03/2024 12:04 AM CDT 01/03/2024 12:12 AM CDT us Dakotah Solano MD CHEMISTRY Final Resul t [facility] [address] [place] [address], * (ABNORMAL) T3,TOTAL (01/03/2024 12:04 AM CDT) T3,TOTAL 65(L) 85 - 202 ng/dL 01/03/2024 1:43 AM CDT [facility] Blood BLOOD SPECIMEN / Unknown Non-Lab Venipuncture / Unknown 01/03/2024 12:04 AM CDT 01/03/2024 12:12 AM CDT us Dakotah Solano MD CHEMISTRY Final Resul t [facility] [address] [place] [address], [place] * SCAN-CARDIAC STRIP (01/02/2024 12:00 AM CDT) Narrative 01/02/2024 12:00 AM CDT Ordered by an unspecified provider. us Other Clinical Staff OTHER Final Resul t * VANCOMYCIN TROUGH (01/01/2024 1:45 PM CDT) Only the most recent of4 resultswithin the time period is included. VANCOMYCIN,TRO UGH 18.2 7.0 - 20.0 ug/mL 01/01/2024 2:44 PM CDT [facility] DATE OF LAST DOSE,TROUGH 12/31/2023 01/01/2024 2:44 PM CDT [facility] TIME OF LAST DOSE,TROUGH 2:00 PM 01/01/2024 2:44 PM CDT [facility] Blood BLOOD SPECIMEN / Unknown Non-Lab Butterfly / Unknown 01/01/2024 1:45 PM CDT 01/01/2024 2:20 PM CDT Costa Flores MD CHEMISTRY Final Res ult Performing Organization Address [facility] Co de Phone Number [facility] [address] [place] [address] * CK TOTAL (01/01/2024 1:45 PM CDT) Only the most recent of2 resultswithin the time period is included. CK,TOTAL 64 26 - 192 IU/L 01/01/2024 2:41 PM CDT [facility] Blood BLOOD SPECIMEN / Unknown Non-Lab Butterfly / Unknown 01/01/2024 1:45 PM CDT 01/01/2024 2:20 PM CDT Costa Flores MD CHEMISTRY Final Res ult [facility] [address] [place] [address] * MAGNESIUM (12/26/2023 12:20 PM CDT) [facility] MAGNESIUM 1.6 1.6 - 2.4 mg/dL 12/26/2023 1:25 PM CDT [facility] Blood BLOOD SPECIMEN / Unknown Line/Port / Unknown 12/26/2023 12:20 PM CDT 12/26/2023 12:54 PM CDT Costa Flores MD CHEMISTRY Final Res ult Performing Organization Address [facility]/ZIP Co de Phone Number [facility] [address] [place] [address] * RED CELL MORPHOLOGY (12/20/2023 10:08 AM CDT) [facility] RBC COMMENT RBC morphology appears normal RBC morphology appears normal, RBC morphology within normal limits for newborns. 12/20/2023 11:35 AM CDT [facility] LARGE PLATELETS Present 12/20/2023 11:35 AM CDT [facility] Blood BLOOD SPECIMEN / Unknown Non-Lab Venipuncture / Unknown 12/20/2023 10:08 AM CDT 12/20/2023 10:48 AM CDT Narrative [facility] - 12/20/2023 11:35 AM CDT This procedure was originally ordered at [facility]. Costa Flores MD HEMATOLOGY Final Res ult [facility] [address] [place] [address] * PLATELET ESTIMATE (12/20/2023 10:08 AM CDT) [facility] PLATELET ESTIMATE Adequate Adequate, No estimate 12/20/2023 11:35 AM CDT [facility] Blood BLOOD SPECIMEN / Unknown Non-Lab Venipuncture / Unknown 12/20/2023 10:08 AM CDT 12/20/2023 10:48 AM T [facility] - 12/20/2023 11:35 AM CDT This procedure was originally ordered at [facility]. us Costa Flores MD HEMATOLOGY Final Res ult [facility] [address] [place] [address] * (ABNORMAL) MANUAL DIFFERENTIAL (12/20/2023 10:08 AM CDT) % NEUTROPHILS 84.0 % 12/20/2023 11:35 AM [facility] % LYMPHOCYTES 6.0 % 12/20/2023 11:35 AM [facility] % MONOCYTES 10.0 % 12/20/2023 11:35 AM [facility] % EOSINOPHILS 0.0 % 12/20/2023 11:35 AM [facility] % BASOPHILS 0.0 % 12/20/2023 11:35 AM [facility] NEUTROPHILS ABSOLUTE 3.0 1.7 - 7.0 thou/cu mm 12/20/2023 11:35 AM [facility] LYMPHOCYTES ABSOLUTE 0.2(L) 0.9 - 2.9 thou/cu mm 12/20/2023 11:35 AM [facility] MONOCYTES ABSOLUTE 0.4 <0.9 thou/cu mm 12/20/2023 11:35 AM [facility] EOSINOPHILS ABSOLUTE 0.0 <0.5 thou/cu mm 12/20/2023 11:35 AM [facility] BASOPHILS ABSOLUTE 0.0 <0.3 thou/cu mm 12/20/2023 11:35 AM [facility] Blood BLOOD SPECIMEN / Unknown Non-Lab Venipuncture / Unknown 12/20/2023 10:08 AM CDT 12/20/2023 10:48 AM T [facility] - 12/20/2023 11:35 AM CDT This procedure was originally ordered at [facility]. us Costa Flores MD HEMATOLOGY Final Res ult [facility] [address] [place] [address] * ANTI HCV (12/28/2020 11:38 AM CDT) HEPATITIS C ANTIBODY Non-React jorge Non-React jorge 12/28/2020 8:51 PM CDT [facility] Comment:Antibodies to HCV no t detected; does not exclude the possibility of exposure to HCV. Blood BLOOD SPECIMEN / Unknown Butterfly / Unknown 12/28/2020 11:38 AM CDT 12/28/2020 11:38 AM CDT us Alexandria Lynch MD SEND OUTS Final Re sult Performing Organization Address City/[facility]/ZIP Co de Phone Number [facility] 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 Do not delete or resolve the infection flag. 12/30/2021 12/30/2021 VRE Clearance Comment:Infection Control Note: Hx of VRE, surveillance criteria met, no need for further testing or isolation precautions. Do not delete or resolve the Infection Flag. 06/08/2023 06/08/2023 Insurance MEDICARE PART A HB ONLY [employer] MEDICARE ADVANTAGE MR [id number] [place] [id number] BLUE CROSS MEDICARE ADVANTAGE MR [facility] [place] [id number] [address] [place] [id number] Advance Directives Documents on File Type Date Recorded Patient Hamper Maker Expl anation Healthcare Directive 11/22/2023 024 POLST 02/01/2022 POLST 02/01/2022 POLST 10/13/2016 7:02 PM 08/16/16 * Full Code (Latest Code Status on File) Date Activated Date Inactivated Comments 02/20/2024 7:16 AM * Full Code Date Activated Date Inactivated Comments 01/02/2024 8:45 PM 01/13/2024 12:55 PM Question Answer Comments Code Status Discussion: Reviewed Preferences * Full Code Date Activated Date Inactivated Comments 01/02/2024 8:19 PM 01/02/2024 8:45 PM Question Answer Comments Code Status Discussion: Other * Full Code Date Activated Date Inactivated Comments 11/21/2023 12:00 PM 11/28/2023 3:42 PM Question Answer Comments Code Status Discussion: Not Discussed * Full Code Date Activated Date Inactivated Comments 06/07/2023 10:58 PM 06/10/2023 8:41 PM Question Answer Comments Code Status Discussion: Reviewed Preferences Care Teams Education Rep Relationship Specialty Start Date End Date Alexandria Lynch MD [address] [place] [address] PCP - General Family Practice 03/28/22 Essence Palomo MD Oncology - Gynecologic 09/01/16 Lemuel Kilpatrick MD Consulting Physician Surgery - Orthopedics 12/13/16 Zoila Fink MD Consulting Physician Hospice and Palliative Medicine - Family Medicine 12/13/16 Eber Tam MD [address] [place] [address] Surgery - Orthopedics 12/09/19 [facility] [address] [place] [address] 02/13/24
--- NOTE | 2024-03-17 17:20 | ED.GENADULT ---
HPI - General Adult General Date Seen: 03/17/24 Chief complaint: Fall/Minor Trauma Stated complaint: Fall Time Seen by Provider: 03/17/24 16:36 Source: patient and EMS Mode of arrival: EMS Limitations: no limitations History of Present Illness HPI narrative: Patient is a 78-year-old female presenting to the emergency department after a fall. She states she has walking to the bathroom when her foot got caught on the rug and she started to fall. She states she was near the toilet so tried to sit down on it. She states she hit the toilet with her but but then fell to the ground. She is adamant she did not hit her head. She states she did have some lightheadedness and dizziness associated before the fall but states this is a chronic issue for her and this seems no different than normal. This is her 2nd fall this week. She states that other fall she stepped on her bed slipped off landing on the floor. She again states she did not hit her head. No injuries noted from either fall she states. States she is otherwise feeling fine. Does note that she has been told her blood pressure gets low when she stands up. Admits that she has not been eating or drinking much over the past 3 days because she has been having nausea. This also has an intermittent chronic issue for her that if seems similar to previous episodes. States she only came in because her sister, who she lives with, told her she should get checked out. She is scheduled to have kidney stones removed this week and was cleared by her primary care provider for surgery 3 days ago. No other concerns noted. Denies chest pain, shortness of breath, fevers, chills, abdominal pain, headache, lightheadedness, weakness, numbness. No other concerns noted. Related Data Home Medications ?Medication ?Instructions ?Recorded ?Confirmed atorvastatin 40 mg tablet 40 mg PO DAILY 12/25/23 12/25/23 gabapentin 100 mg capsule 300 mg PO QPM 12/25/23 12/25/23 levofloxacin 750 mg tablet 750 mg PO DAILY 12/25/23 12/25/23 levothyroxine 50 mcg tablet 50 mcg PO DAILY 12/25/23 12/25/23 levothyroxine 75 mcg tablet 75 mcg PO DAILY 12/25/23 12/25/23 micafungin 100 mg intravenous mg IV 12/25/23 solution midodrine 2.5 mg tablet PO 12/25/23 ondansetron 4 mg disintegrating 4 mg PO Q8H PRN 12/25/23 12/25/23 tablet oxycodone 5 mg tablet PO 12/25/23 rifampin 300 mg capsule PO 12/25/23 vancomycin 12/25/23 Previous Rx's ?Medication ?Instructions ?Recorded magnesium oxide 400 mg PO BID #14 caps 12/25/23 potassium chloride 20 mEq 20 meq PO DAILY #7 tabs 12/25/23 tablet,extended release Allergies Allergy/AdvReac Type Severity Reaction Status Date / Time Sulfa (Sulfonamide Allergy Mild Verified 03/17/24 16:45 Antibiotics) Review of Systems Status of ROS: Reports: 10 or more systems reviewed and unremarkable except as noted in History and below [facility] Social History Smoking Status: Never smoker Do you use any of these nicotine containing products: None How often do you have a drink containing alcohol: never How often do you have six or more drinks on one occasion: Never AUDIT-C Alcohol total score: 0 Non-prescribed substance use: denies use Exam Narrative: Exam Narrative: Const: Well-nourished, Well-developed, in no distress Eyes: PERRL, no conjunctival injection, and symmetrical lids HENT: Atraumatic external nose and ears. Moist mucous membranes. Neck: Symmetric, trachea midline, No thyromegaly. CVS: RRR, No murmurs or gallops. Peripheral pulses 2+ and equal in all extremities RESP: Unlabored respiratory effort. Clear to auscultation bilaterally. GI: Nontender/Nondistended, No rebound or guarding. MSK:Extremities w/o deformity, Normal Active ROM Skin: Warm, Dry. No rashes or lesions. Neuro: Normal Muscle tone, No focal neurological deficits. Psych: Awake, Alert, & Oriented x3. Appropriate mood and affect. Const: Vital Signs, click to edit/add: Vital Signs - 24 hr 03/17/24 16:41 03/17/24 16:53 03/17/24 17:00 Temperature 97.6 F Pulse Rate 83 79 Pulse Rate [Right Pulse Oximeter] 92 Pulse Rate [orthos tatic lying Pulse Oximeter] Pulse Rate [orthos tatic sitting Puls e Oximeter] Pulse Rate [orthos tatic standing Pul se Oximeter] Respiratory Rate 18 Blood Pressure Blood Pressure [Ri ght Upper Arm] 149/79 H Blood Pressure [or thostatic lying Le ft Arm] Blood Pressure [or thostatic sitting] Blood Pressure [or thostatic standing Left Arm] Pulse Oximetry 99 94 94 Oxygen Delivery Me thod Room Air 03/17/24 17:15 03/17/24 17:30 03/17/24 17:45 Temperature Pulse Rate 69 66 63 Pulse Rate [Right Pulse Oximeter] Pulse Rate [orthos tatic lying Pulse Oximeter] Pulse Rate [orthos tatic sitting Puls e Oximeter] Pulse Rate [orthos tatic standing Pul se Oximeter] Respiratory Rate Blood Pressure Blood Pressure [Ri ght Upper Arm] Blood Pressure [or thostatic lying Le ft Arm] Blood Pressure [or thostatic sitting] Blood Pressure [or thostatic standing Left Arm] Pulse Oximetry 98 98 99 Oxygen Delivery Me thod 03/17/24 18:00 03/17/24 18:15 03/17/24 18:30 Temperature Pulse Rate 64 63 60 Pulse Rate [Right Pulse Oximeter] Pulse Rate [orthos tatic lying Pulse Oximeter] Pulse Rate [orthos tatic sitting Puls e Oximeter] Pulse Rate [orthos tatic standing Pul se Oximeter] Respiratory Rate Blood Pressure Blood Pressure [Ri ght Upper Arm] Blood Pressure [or thostatic lying Le ft Arm] Blood Pressure [or thostatic sitting] Blood Pressure [or thostatic standing Left Arm] Pulse Oximetry 97 96 97 Oxygen Delivery Me thod 03/17/24 18:45 03/17/24 19:00 03/17/24 19:04 Temperature Pulse Rate 64 66 Pulse Rate [Right Pulse Oximeter] Pulse Rate [orthos tatic lying Pulse Oximeter] 68 Pulse Rate [orthos tatic sitting Puls e Oximeter] 71 Pulse Rate [orthos tatic standing Pul se Oximeter] 99 Respiratory Rate Blood Pressure Blood Pressure [Ri ght Upper Arm] Blood Pressure [or thostatic lying Le ft Arm] 155/77 H Blood Pressure [or thostatic sitting] 134/65 Blood Pressure [or thostatic standing Left Arm] 73/46 L Pulse Oximetry 98 97 Oxygen Delivery Me thod 03/17/24 19:15 03/17/24 19:29 03/17/24 19:30 Temperature Pulse Rate 63 69 75 Pulse Rate [Right Pulse Oximeter] Pulse Rate [orthos tatic lying Pulse Oximeter] Pulse Rate [orthos tatic sitting Puls e Oximeter] Pulse Rate [orthos tatic standing Pul se Oximeter] Respiratory Rate Blood Pressure 155/77 H Blood Pressure [Ri ght Upper Arm] Blood Pressure [or thostatic lying Le ft Arm] Blood Pressure [or thostatic sitting] Blood Pressure [or thostatic standing Left Arm] Pulse Oximetry 98 97 98 Oxygen Delivery Me thod 03/17/24 19:31 03/17/24 19:32 03/17/24 19:33 Temperature Pulse Rate 78 95 Pulse Rate [Right Pulse Oximeter] Pulse Rate [orthos tatic lying Pulse Oximeter] Pulse Rate [orthos tatic sitting Puls e Oximeter] Pulse Rate [orthos tatic standing Pul se Oximeter] Respiratory Rate Blood Pressure 134/65 73/46 L Blood Pressure [Ri ght Upper Arm] Blood Pressure [or thostatic lying Le ft Arm] Blood Pressure [or thostatic sitting] Blood Pressure [or thostatic standing Left Arm] Pulse Oximetry 97 100 Oxygen Delivery Pr thod 03/17/24 19:45 03/17/24 20:00 03/17/24 20:15 Temperature Pulse Rate 79 68 74 Pulse Rate [Right Pulse Oximeter] Pulse Rate [orthos tatic lying Pulse Oximeter] Pulse Rate [orthos tatic sitting Puls e Oximeter] Pulse Rate [orthos tatic standing Pul se Oximeter] Respiratory Rate Blood Pressure Blood Pressure [Ri ght Upper Arm] Blood Pressure [or thostatic lying Le ft Arm] Blood Pressure [or thostatic sitting] Blood Pressure [or thostatic standing Left Arm] Pulse Oximetry 97 98 99 Oxygen Delivery Pr thod 03/17/24 20:30 03/17/24 20:45 03/17/24 21:00 Temperature Pulse Rate 76 70 72 Pulse Rate [Right Pulse Oximeter] Pulse Rate [orthos tatic lying Pulse Oximeter] Pulse Rate [orthos tatic sitting Puls e Oximeter] Pulse Rate [orthos tatic standing Pul se Oximeter] Respiratory Rate Blood Pressure Blood Pressure [Ri ght Upper Arm] Blood Pressure [or thostatic lying Le ft Arm] Blood Pressure [or thostatic sitting] Blood Pressure [or thostatic standing Left Arm] Pulse Oximetry 98 98 100 Oxygen Delivery Pr thod Course Vital Signs Vital signs: Initial Vital Signs Temperature 97.6 F 03/17/24 16:41 Temperature Source Temporal Artery Scan 03/17/24 16:41 Pulse Rate 92 03/17/24 16:41 Pulse Rhythm Regular 03/17/24 16:41 Pulse Strength 3+ Normal 03/17/24 16:41 Respiratory Rate 18 03/17/24 16:41 Blood Pressure 149/79 H 03/17/24 16:41 Blood Pressure Mean 102 03/17/24 16:41 Blood Pressure Position Supine 03/17/24 16:41 Pulse Oximetry 99 03/17/24 16:41 Oxygen Delivery Method Room Air 03/17/24 16:41 Vital Signs Temperature 97.6 F 03/17/24 16:41 Pulse Rate 92 03/17/24 16:41 Respiratory Rate 18 03/17/24 16:41 Blood Pressure 149/79 H 03/17/24 16:41 Pulse Oximetry 99 03/17/24 16:41 Oxygen Delivery Method Room Air 03/17/24 16:41 Temperature 97.6 F 03/17/24 16:41 Pulse Rate 72 03/17/24 21:00 Respiratory Rate 18 03/17/24 16:41 Blood Pressure 73/46 L 03/17/24 19:32 Pulse Oximetry 100 03/17/24 21:00 Oxygen Delivery Method Room Air 03/17/24 16:41 Medications Administered Medications: Discontinued Medications Generic Name Dose Route Start Last Admin Trade Name Freq PRN Reason Stop Dose Admin Lactated Ringer's 1,000 mls @ 1,000 mls/hr 03/17/24 17:00 03/17/24 19:48 Lactated Ringers 1000 Ml IV 03/17/24 17:59 Infused .Q1H ONE Infusion Lactated Ringer's 1,000 mls @ 1,000 mls/hr 03/17/24 19:40 03/17/24 19:48 Lactated Ringers 1000 Ml IV 03/17/24 20:39 1,000 mls/hr .Q1H ONE Administration Ondansetron HCl 4 mg 03/17/24 17:00 03/17/24 17:41 Ondansetron 2 Mg/Ml Inj IVP 03/17/24 17:01 4 mg ONCE ONE Administration Medical Decision Making MDM Narrative Medical decision making narrative: Patient is a 78-year-old female presenting after a fall. She does currently having some dizziness and lightheadedness but this is a chronic issue for her. Symptoms are improved when she is laying down. She does state she is likely dehydrated and will give her IV fluids. Will also do a CBC, BMP, EKG, troponin, viral swabs. Will give her Zofran for nausea. She states she takes at home but forgot to take it before coming. As she is adamant she did not hit her head both times and feels otherwise fine I do not believe is necessary to do any further imaging. Will do orthostatic blood pressures after fluids. Lab work shows no concerning abnormalities other than she has a is creatinine of 2.4. Her baseline is typically around 1.2 and was 1.8 2 days ago. She does meet criteria for an acute kidney injury but is seeing Urology and 3 days to have a stent removed. This is likely from dehydration though as she states she has not been drinking much fluid. She is not having any pain. After fluids were done we did orthostatic blood pressures she became very lightheaded and orthostatic. She is known to have orthostatic BP is but the seem quite pronounced. Will give her more fluids. She is still not feeling well after the fluids and would like to be admitted. We will admit her. She does note now that she has a chronic hip infection which she takes doxycycline for. Lab Data Labs: Lab Results 03/17/24 03/17/24 03/17/24 Range/Units 17:09 17:37 17:37 WBC 10.57 (4.50-11.00) K/uL RBC 3.45 L (4.00-5.20) m/uL Hgb 10.4 L (12.0-16.0) gm/dL Hct 31.6 L (33.0-51.0) % MCV 92 (80-100) fL MCH 30 (26-34) pg MCHC 33 (32-36) gm/dL RDW Coeff of Todd 14.6 (11.5-15.5) % Plt Count 278 (140-440) K/uL Neut % (Auto) 81.4 H (42.0-72.0) % Lymph % (Auto) 9.4 L (20-44) % [place] % (Auto) 8.2 (0.0-11.0) % Eos % (Auto) 0.3 (0.0-7.0) % Baso % (Auto) 0.4 (0.0-3.0) % Neut # (Auto) 8.60 H (1.7-7.0) K/uL Lymph # (Auto) 1.00 (0.90-2.90) K/uL [place] # (Auto) 0.90 (0.00-0.90) K/UL Eos # (Auto) 0.03 (0.00-0.50) K/uL Baso # (Auto) 0.04 (0.00-0.30) K/uL Abs Immat Gran (auto) 0.03 (0.00-0.30) K/uL Imm/Tot Granulo (auto) 0.3 % Sodium 137 (135-149) mmol/L Potassium 4.1 (3.6-5.1) mmol/L Chloride 106 (96-114) mmol/L Carbon Dioxide 22 (20-32) mmol/L Anion Gap 9 (7-15) mEq/L BUN 52 H (7-30) mg/dL Creatinine 2.4 H (0.5-1.5) mg/dL Estimated Creat Clear 17.29 Estimated GFR 20 ml/min Glucose 81 (60-115) mg/dL Calcium 10.8 H (8.4-10.6) mg/dL Troponin I < 0.01 L Cancelled (0.01-0.04) ng/mL SARS-CoV-2 (PCR) Negative SARS-CoV-2 (Negative) Influenza Type A (PCR) Negative PCR FLU A (Negative) Influenza Type B (PCR) Negative PCR FLU B (Negative) RSV (PCR) Negative PCR RSV (Negative) ECG Data Attestation: I personally reviewed and interpreted this ECG as follows: Prior ECG tracings: available for review Interpretation: Normal sinus rhythm with a rate of 69 beats per minute, normal intervals, normal axis, no ST or T-wave abnormalities. Discharge Plan Discharge Clinical Impression: Acute dehydration, MARJORIE (acute kidney injury) Patient Disposition: Admitted As Observation Condition: Stable Prescriptions: No Action atorvastatin 40 mg tablet 40 mg PO DAILY levothyroxine 75 mcg tablet 75 mcg PO DAILY rifampin 300 mg capsule PO levothyroxine 50 mcg tablet 50 mcg PO DAILY midodrine 2.5 mg tablet PO gabapentin 100 mg capsule 300 mg PO QPM levofloxacin 750 mg tablet 750 mg PO DAILY ondansetron 4 mg tablet,disintegrating 4 mg PO Q8H PRN oxycodone 5 mg tablet PO micafungin 100 mg recon soln IV vancomycin Rx Instructions: 1.25 Grams in 250 mL Bolus IV med through picc line potassium chloride 20 mEq tablet extended release 20 meq PO DAILY Qty: 7 2RF magnesium oxide 400 mg magnesium capsule 400 mg PO BID Qty: 14 0RF Follow Up/Referrals: Provider,Not a Local [Primary Care Provider] -
[2024-03-17] MEDS: LACTATED RINGERS 1000 ML 1,000 ML IV ×2 (17:41→19:48)
[2024-03-17] MEDS: ONDANSETRON 2 MG/ML inj 4 MG IVP (17:41)
[2024-03-17 17:55] LABS: Basophils Absolute Auto 0.04 K/uL (0.00-0.30); Basophils Percent Auto 0.4 % (0.0-3.0); Eosinophils Absolute Auto 0.03 K/uL (0.00-0.50); Eosinophils Percent Auto 0.3 % (0.0-7.0); Hematocrit 31.6 % (33.0-51.0); Hemoglobin* 10.4 gm/dL (12.0-16.0); Immature Granulocytes Abs Auto 0.03 K/uL (0.00-0.30); Immature Granulocytes Pct Auto 0.3 %; Lymphocytes Percent Auto 9.4 % (20-44); Mean Corpuscular HGB Conc 33 gm/dL (32-36); Mean Corpuscular Hemoglobin 30 pg (26-34); Mean Corpuscular Volume 92 fL (80-100); Monocytes Percent Auto 8.2 % (0.0-11.0); Neutrophils Percent Auto 81.4 % (42.0-72.0); Platelet Count* 278 K/uL (140-440); RDW Coefficient of Variation % 14.6 % (11.5-15.5); Red Blood Count 3.45 m/uL (4.00-5.20); White Blood Count* 10.57 K/uL (4.50-11.00)
[2024-03-17 17:56] LABS: Slide Review Reflex No
--- OUTSIDE RECORDS SUMMARY | 2024-03-17 18:01 | XMS_ITS | Clinical Summary ---
Author Organization [employer] ([employer]) [facility] Address [place], [place] [address] Care Team Providers Care Home Energy Consultant Name Role Phone Essence Palomo MD Unavailable [phone] Lemuel Kilpatrick MD Unavailable [phone] Zoila Fink MD Unavailable Unavailab Alexandria Gilbert MD Primary Care Provider + Eber Tam MD Unavailable + [phone] [facility], Sandeep Unavailable Allergies Active Allergy [...] Agent: Daphne Lombardi Relationship: Cousin's Dtr cell; [phone] Conservator: Relationship: Phone: Guardian: Relationship: Phone: Patient [...] Department Care Team Description 03/15/2024 2:15 PM MARINE OILER Office Visit [facility] [address] [place] [address] Bobbi Santa MD Preoperative Exam (CYSTOSCOPY, RIGHT URETEROSCOPY, HOLMIUM LASER/RIGHT URETERAL STENT REMOVAL VERSUS EXCHANGE /Tomas, Ruben Roy MD/) 03/15/2024 10:30 AM MARINE OILER Home Care Visit [facility] [address] [place] [address] Jelani Hill RING SORTER - HOME VISIT 03/15/2024 Travel 03/12/2024 2:30 PM MARINE OILER Home Care Visit [facility] [address] [place] [phone] José Miguel Obrien, PT PT - HOME VISIT 03/12/2024 10:15 AM MARINE OILER Home Care Visit [facility] [address] [place] [phone] Drew Crisostomo, OT OT - HOME VISIT 03/12/2024 Travel 03/08/2024 1:00 PM MARINE OILER Home Care Visit [facility] [address] [place] [phone] Lexii Snow COTA OT - HOME VISIT 03/05/2024 10:30 AM MARINE OILER Home Care Visit [facility] [address] [place] [phone] Magda Alvarenga RING SORTER - HOME VISIT 03/05/2024 9:00 AM MARINE OILER Home Care Visit [facility] [address] [place] [phone] José Miguel Obrien, PT PT - HOME VISIT 03/04/2024 11:00 AM MARINE OILER Home Care Visit [facility] [address] [place] [phone] Eli Dominguez LISW GUN REPAIR CLERK - INITIAL ASSESSMENT 02/28/2024 2:15 PM MARINE OILER Home Care Visit [facility] [address] [place] [address] [place] [phone] José Miguel Obrien, PT PT - HOME VISIT 02/28/2024 1:30 PM MARINE OILER Home Care Visit [facility] [address] [place] [address] Lexii Snow COTA OT - HOME VISIT 02/27/2024 12:00 PM MARINE OILER Home Care Visit [facility] [address] [place] [phone] Magda Alvarenga RING SORTER - HOME VISIT 02/27/2024 9:30 AM MARINE OILER Home Care Visit [facility] [address] [place] [phone] Tawana Peters, CROW SN - DISCIPLINE DISCHARGE 02/27/2024 Telephone [facility] [address] [address] Tawana Peters, insurance advisor 02/23/2024 10:45 AM MARINE OILER Home Care Visit [facility] [address] [place] [phone] Magda Alvarenga RING SORTER - HOME VISIT 02/21/2024 2:00 PM MARINE OILER Home Care Visit [facility] [address] [place] [phone] José Miguel Obrien, PT PT - INITIAL ASSESSMENT 02/21/2024 9:30 AM MARINE OILER Home Care Visit [facility] [address] [place] [phone] Drew Crisostomo OT OT - INITIAL ASSESSMENT 02/19/2024 9:00 AM MARINE OILER Phone Office Visit [facility] [address] [place] [address] Costa Flores MD 02/19/2024 Travel 02/15/2024 12:00 PM MARINE OILER Home Care Visit [facility] [address] [place] [phone] Tawana Peters, CROW SN - OASIS START OF CARE 02/15/2024 Plan of Care Documentation [facility] [address] [place] [phone] 02/15/2024 Telephone [facility] [address] [place] [address] Tawana Peters, insurance advisor 02/15/2024 Orders Only [facility] [address] [place] [address] Tawana Peters RN <No scans attached> 02/13/2024 Transcribe Orders [facility] [address] [place] [address] Ruben Ty MD 02/12/2024 Telephone [facility] [address] [facility] [address] [place] [address] Costa Flores MD Medication Management (picc line) 02/07/2024 Orders Only [facility] Scanner 1 scan: (1-Ord) [facility], MULTIPLE LAB TESTS, 02/07/2024 02/05/2024 Transcribe Orders [facility] [address] [place] [address] Ruben Ty MD 01/29/2024 9:40 AM MARINE OILER Office Visit [facility] [address] [facility] [address] [place] [address] Costa Flores MD Hospital F/U 01/29/2024 Travel 01/27/2024 Home Care Visit [facility] [address] [place] [address] Tawana Peters RN EPISODE DISCHARGE 01/23/2024 2:40 PM MARINE OILER Orders Only [facility] [address] [facility] [address] [place] [address] Lab 01/23/2024 Travel 01/23/2024 Patient Outreach [facility] Care Management - Advanced Care Team [address] [place] [address] Yarelis Ochoa, POTATO INSPECTOR [facility] 01/20/2024 Travel 01/18/2024 Telephone [facility] [address] [place] [address] Costa Flores MD Lab 01/17/2024 Home Care Visit [facility] [address] [place] [address] Tawana Peters RN CARE COORDINATION 01/16/2024 Telephone [facility] [address] [place] [address] Costa Flores MD Medication Management (Stop date for antibiotics) 01/11/2024 Refill [facility] [address] [place] [phone] Alexandria Lynch MD Refill Request (Levothyroxine) 01/04/2024 Travel 01/04/2024 Home Care Visit [facility] [address] [place] [phone] Tawana Peters, CROW SN - OASIS TRANSFER 01/03/2024 10:50 AM CDT Anesthesia Event [facility] [address] [place] [address] Ruby Durham MD Natzel, Marissa L, TILE PROFESSIONAL Student 01/03/2024 10:25 AM CDT - 01/03/2024 12:28 PM CDT Surgery [facility] [address] [place] [address] Ruben Marin MD CYSTOSCOPY, RIGHT URETERAL STENT PLACEMENT, RIGHT RETROGRADE PYELOGRAM 01/03/2024 Home Care Visit [facility] [address] [place] [address] Malika Chandler RN CARE TRANSITION NOTE 01/02/2024 7:53 PM CDT - 01/13/2024 10:40 AM CDT Hospital Encounter [facility] [address] [place] [address] [facility] [place] MD Lorence-Nelson, Dona Mae, MD Zafari, Olivia, MD Acquired hypothyroidism (Primary Dx); Hypothyroidism, unspecified type; Janeth infection; Infection of prosthetic hip joint, subsequent encounter; Occlusion of peripherally inserted central catheter (PICC) line, subsequent encounter; S/p Left total hip arthroplasty revision DPS: 11/18/2022 with Eber Tam MD Discharge Disposition: Long-Term Facility 01/02/2024 Nurse Triage [facility] [address] [place] [address] Alexandria Lynch MD Back Pain 01/01/2024 1:30 PM CDT Home Care Visit [facility] [address] [place] [address] Tawana Peters RN SN - LONG VISIT (>90 MINUTES) 01/01/2024 9:00 AM CDT Phone Office Visit [facility] [address] [facility] [address] [place] [address] Costa Flores MD 01/01/2024 Orders Only [facility] [address] [place] [address] Costa Flores MD Lab 01/01/2024 Travel 01/01/2024 Orders Only [facility] [address] [place] [address] Costa Flores MD Lab (Home care) 12/28/2023 10:40 AM CDT Office Visit [facility] [address] [facility] [address] [place] [address] Eber Tam MD Surgical Followup (5 weeks s/p Left hip irrigation & debridement DOS: 11/21/2023 with Eber Tam MD) 12/27/2023 12:00 PM CDT Home Care Visit [facility] [address] [place] [address] Magda Alvarenga RING SORTER - HOME VISIT 12/27/2023 Travel 12/26/2023 11:30 AM CDT Home Care Visit [facility] [address] [place] [address] Tawana Peters, CROW SN - LONG VISIT (>90 MINUTES) 12/26/2023 Telephone [facility] [address] [place] [address] Tawana Peters RN Home Care 12/26/2023 [facility] [address] [place] [address] Costa Flores MD Lab 12/26/2023 Orders Only [facility] [address] [place] [address] Costa Flores MD Lab (Home care) 12/25/2023 1:00 PM CDT Home Care Visit [facility] [address] [place] [address] Tawana Peters RN SN - LONG VISIT (>90 MINUTES) 12/25/2023 Home Care Visit [facility] [address] [place] [address] Tawana Peters, CROW CARE COORDINATION 12/25/2023 Telephone [facility] [address] [facility] [address] [place] [address] Zainab Miramontes MD 12/25/2023 [facility] [address] [place] [address] Costa Flores MD Lab 12/25/2023 Orders Only [facility] [address] [place] [address] Costa Flores MD Lab (Home care) 12/25/2023 Refill [facility] [address] [place] [phone] Alexandria Lynch MD Refill Request (midodrine (PROAMATINE) 2.5 mg tablet ) 12/20/2023 4:00 PM CDT Home Care Visit [facility] [address] [place] [phone] Tawana Peters RN SN - HOME VISIT 12/20/2023 Orders Only [facility] [address] [place] [address] Tawana Peters RN <No scans attached> 12/20/2023 Nurse Triage [facility] [address] [place] [address] Alexandria Lynch MD Concerns 12/20/2023 Orders Only [facility] [address] [place] [address] Costa Flores MD Lab 12/19/2023 1:30 PM CDT Home Care Visit [facility] [address] [place] [phone] Tawana Peters RN SN - LONG VISIT (>90 MINUTES) 12/19/2023 Telephone [facility] [address] [place] [address] Tawana Peters, insurance advisor 12/19/2023 Orders Only [facility] [address] [facility] [place] [address] Tawana Peters RN <No scans attached> 12/19/2023 Orders Only [facility] [address] [place] [address] Costa Flores MD Lab 12/19/2023 Orders Only [facility] [address] [place] [address] Costa Flores MD Lab ([facility]) 12/18/2023 12:40 PM CDT Office Visit [facility] [address] [facility] [address] [place] [phone] Demetri Fernandez PA Follow Up (S/p Left [...] 50mcg/0.5mL) 6YO-11YO PF, MDV 02/08/2023 COVID-19 vaccine (TapZilla-Bio NTech 30mcg/0.3mL) 12YO+ BIVALENT PF, MDV 12/29/2021 COVID-19 vaccine (Pfizer-Bio NTech 30mcg/0.3mL) 12YO+ JEANNIE-SUCROSE PF, MDV 06/24/2021 COVID-19 vaccine (TapZilla-Bio NTech 30mcg/0.3mL) PF, MDV 12/29/2021,06/12/2020,05/22/2020,2020 Influenza, High-dose [...] = 0.6 oz pur e alcohol) rarely [facility] Utilities Answer Date Recorded Do you [...] Sex Assigned at Female 02/16/2021 10:41 AM MARINE OILER Legal Sex Female 1:45 PM CDT Gender Identity Female 02/16/2021 10:43 AM MARINE OILER Sexual Orientation Straight 02/16/2021 10 :41 AM MARINE OILER Obstetrics History Last Filed Vital Signs Vital Sign Reading Time Taken Comments Blood Pressure 143/88 03/15/2024 2:19 PM MARINE OILER Pulse 93 03/15/2024 2:19 PM MARINE OILER Temperature 36.5 C (97.7 F) 03/12/2024 2:34 PM MARINE OILER Respiratory Rate 16 03/12/2024 2:34 PM MARINE OILER Oxygen Saturation 99% 03/15/2024 2:19 PM MARINE OILER Inhaled Oxygen Concentration - - Weight 60.2 kg (132 lb 12.8 oz) 024 12:15 PM MARINE OILER Height 165.1 cm (5' 5) 02/15/2024 12:1 5 PM MARINE OILER Body Mass Index 22.1 02/15/2024 12:15 PM MARINE OILER Plan of Treatment Upcoming Encounters Date Type Department Care Team (Latest Contact Info) Description 03/20/2024 8:31 AM MARINE OILER Hospital Encounter [facility] [address] [place] [address] Ruben Marin MD [address] [place], [place] [phone] 03/20/2024 8:31 AM MARINE OILER - 03/20/2024 10:11 AM MARINE OILER Surgery [facility] [address] [place] [address] Ruben Marin MD [address] [place] [address] CYSTOSCOPY, RIGHT URETEROSCOPY, HOLMIUM LASER LITHOTRIPSY Scheduled Procedures Name Priority Associated Diagnoses Date/Ti me CYSTOSCOPY URETEROSCOPY LASER Tier 2 N20.0- kidney stones 03/20/2024 8:31 AM MARINE OILER CYSTOSCOPY REMOVAL URETERAL STENT Tier 2 N20.0- kidney stones 03/20/2024 8:31 AM MARINE OILER Health Maintenance Due Date Last Done Comments [...] history exists Medical Devices Implanted Type Area Upper Inspector Device Identifier Shelf Expiration Date Model / Serial / Lot Cmnt Bone Simplex Atb Tobramycin - [id number] Implanted:Qty: 1 on 05/10/2022 by Eber Tam MD at [facility] Left: Hip [facility] 08/11/2023 6197-9-001 / / [id number] Cmnt Bone Simplex Atb Tobramycin - [id number] Implanted:Qty: 1 on 05/10/2022 by Eber Tam MD at [facility] Left: Hip [facility] 08/11/2023 6197-9-001 / / [id number] Cmnt Bone Simplex Atb Tobramycin - [id number] Implanted:Qty: 2 on 07/18/2022 by Eber Tam MD at [facility] Left: Hip [facility] 12/11/2023 6197-9-001 / / [id number] Trident Tritanium Multihole Acetabular Shell Implanted:Qty: 1 on 07/18/2022 by Eber Tam MD at [facility] Left: Hip [employer] [facility] 06/30/2026 6601105I / / [id number] Screw Hip 6.5x35mm [employer] Low Profile Hex - [id number] Implanted:Qty: 1 on 07/18/2022 by Eber Tam MD at [facility] Left: Hip [facility] 09/03/2025 6266-3421 / / [id number] Screw Hip 6.5x30mm [place] Low Profile Hex - [id number] Implanted:Qty: 1 on 07/18/2022 by Eber Tam MD at [facility] Left: Hip [facility] 08/10/2026 1671-0920 / / [id number] Screw Hip 6.5x20mm [place] Low Profile Hex - [id number] Implanted:Qty: 1 on 07/18/2022 by Eber Tam MD at [facility] Left: Hip [facility] 03/23/2027 3344-1870 / / [id number] Screw Hip 6.5x25mm [place] Low Profile Hex - [id number] Implanted:Qty: 1 on 07/18/2022 by Eber Tam MD at [facility] Left: Hip [facility] 09/15/2026 5390-4277 / / [id number] Cmnt Bone Simplex Atb Tobramycin - [id number] Implanted:Qty: 1 on 07/18/2022 by Eber Tam MD at [facility] Left: Hip [facility] 08/11/2023 6197-9-001 / / [id number] Gmrs Extension Piece Implanted:Qty: 1 on 07/18/2022 by Eber Tam MD at [facility] Left: Hip [facility] 05/10/2025 89309357 / / [id number] Gmrs Extension Piece Implanted:Qty: 1 on 07/18/2022 by Eber Tam MD at [facility] Left: Hip [facility] 06/13/2025 20667984 / / [id number] Gmrs Proximal Femoral Component Implanted:Qty: 1 on 07/18/2022 by Eber Tam MD at [facility] Left: Hip [facility] 03/22/2027 79384888 / / [id number] Stem Hip [id number] Gmrs W/O Body Titnm - [id number] Implanted:Qty: 1 on 07/18/2022 by Eber Tam MD at [facility] Left: Hip [facility] 05/19/2027 93224063 / / [id number] Head Hip Od28mm -4 Biolox Delta C-Taper Alumina Cer - [id number] Implanted:Qty: 1 on 07/18/2022 by Eber Tam MD at [facility] Left: Hip [facility] 04/14/2027 6570-0-028 / / [id number] Insert Acetab X3 Sikhism Adm - [id number] Implanted:Qty: 1 on 07/18/2022 by Eber Tam MD at [facility] Left: Hip [facility] 01/08/2027 7236-2-852 / / [id number] Liner Hip Id42 Od48.5mm Trident - [id number] Implanted:Qty: 1 on 11/18/2022 by Eber Tam MD at [facility] Left: Hip [facility] 01/06/2025 690-00-28F / / [id number] Head Hip Od28mm -4 V40 Co Cr - [id number] Implanted:Qty: 1 on 11/18/2022 by Eber Tam MD at [facility] Left: Hip [facility] 09/05/2027 6260-5-028 / / [id number] Stent Uret 5mic35zh Contour - [id number] Implanted:Qty: 1 on 01/03/2024 by Ruben Marin MD at [facility] Right: Ureter [facility] 09/25/2026 [id number] / / [id number] Explanted Type Area Upper Inspector Device Identifier Shelf Expiration Date Model / Serial / Lot Screw Sm Joint 6.5x30mm Canclls Bone - [id number] Implanted:Qty: 1 on 05/10/2017 by Eber Tam MD at [facility] Explanted:Qty: 1 on 05/14/2021 by Eber Tam MD at [facility] Ortho Imp.,Screw s & Plates Left: Hip [facility] 12/12/2021 6599-6956-1 # / / [id number] Screw Sm Joint 6.5x25mm Canclls Bone - [id number] Implanted:Qty: 1 on 05/10/2017 by Eber Tam MD at [facility] Explanted:Qty: 1 on 05/14/2021 by Eber Tam MD at [facility] Ortho Imp.,Screw s & Plates Left: Hip [facility] 03/15/202220291101-4473-1 # / / [id number] Screw Sm Joint 6.5x25mm Canclls Bone - [id number] Implanted:Qty: 1 on 05/10/2017 by Eber Tam MD at [facility] Explanted:Qty: 1 on 05/14/2021 by Eber Tam MD at [facility] Ortho Imp.,Screw s & Plates Left: Hip [facility] 12/15/202120291227-7464-1 # / / [id number] Wire K 3.7h395qc - [id number] Explanted:Qty: 1 on 08/13/2016 by Miri Mccain MD at [facility] Left: Hip [facility] 04/12/2021 1210-6450S# / / [id number] Guidewire Ball Tip 1a0566wy - [id number] Explanted:Qty: 1 on 08/13/2016 by iMri Mccain MD at [facility] Left: Hip [facility] 06/10/2021 1806-0085S# / / [id number] Wire K 1x967em - [id number] Explanted:Qty: 1 on 08/13/2016 by Miri Mccain MD at [facility] Left: Hip [facility] 04/12/2021 1806-0050S# / / [id number] Wire K 6b019vz - [id number] Explanted:Qty: 1 on 08/13/2016 by Miri Mccain MD at [facility] Left: Hip [facility] 05/10/2021 1806-0050S# / / [id number] Nail Fem Lt 55f024wd 125deg Gamma 3 Titnm Strl - [id number] Implanted:Qty: 1 on 08/13/2016 by Miri Mccain MD at [facility] Explanted:Qty: 1 on 05/10/2017 by Eber Tam MD at [facility] Left: Hip [facility] 04/12/2021 3525-0380S# / / [id number] Screw Fem 10.5x90mm Gamma3 Lag - [id number] Implanted:Qty: 1 on 08/13/2016 by Miri Mccain MD at [facility] Explanted:Qty: 1 on 05/10/2017 by Eber Tam MD at [facility] Left: Hip [facility] 04/12/2021 3060-0090S# / / [id number] Trident Acetabular Shell Implanted:Qty: 1 on 05/10/2017 by Eber Tam MD at [facility] Explanted:Qty: 1 on 05/14/2021 by Eber Tam MD at [facility] Left: Hip [facility] 02/01/2022 508-11-52E / / [id number] Screw Sm Joint 6.5x20mm Canclls Bone - [id number] Implanted:Qty: 1 on 05/10/2017 by Eber Tam MD at [facility] Explanted:Qty: 1 on 05/14/2021 by Eber Tam MD at [facility] Left: Hip [facility] 06/14/2021- # / / [id number] Screw Sm Joint 6.5x20mm Canclls Bone - [id number] Implanted:Qty: 1 on 05/10/2017 by Eber Tam MD at [facility] Explanted:Qty: 1 on 05/14/2021 by Eber Tam MD at [facility] Left: Hip [facility] 02/07/2022- # / / [id number] Screw Sm Joint 6.5x20mm Canclls Bone - [id number] Implanted:Qty: 1 on 05/10/2017 by Eber Tam MD at [facility] Explanted:Qty: 1 on 05/14/2021 by Eber Tam MD at [facility] Left: Hip [facility] 02/09/2021 4735-9247-1 # / / [id number] Trident Constrained Acetabular Insert Implanted:Qty: 1 on 05/10/2017 by Eber Tam MD at [facility] Explanted:Qty: 1 on 05/14/2021 by Eber Tam MD at [facility] Left: Hip [facility] 10/14/2021 690-00-22E / / [id number] Cmnt Restrictor Hip 18.5mm Guzman - [id number] Implanted:Qty: 1 on 05/10/2017 by Eber Tam MD at [facility] Explanted:Qty: 1 on 05/14/2021 by Eber Tam MD at [facility] Left: Hip [employer] [facility] [facility] 10/11/2026 12-9418# / / [id number] Stem Hip Sz6 132deg Omnifit Lokesh Co Cr - [id number] Implanted:Qty: 1 on 05/10/2017 by Eber Tam MD at [facility] Explanted:Qty: 1 on 05/14/2021 by Eber Tam MD at [facility] Left: Hip [facility] 12/24/2019 3989-3990# / / [id number] Spacer Hip 10mm Accolade - [id number] Implanted:Qty: 1 on 05/10/2017 by Eber Tam MD at [facility] Explanted:Qty: 1 on 05/14/2021 by Eber Tam MD at [facility] Left: Hip [facility] 11/23/2020 3158-5599# / / [id number] Head Hip Od22mm +0 Lfit C-Taper Co Cr - [id number] Implanted:Qty: 1 on 05/10/2017 by Eber Tam MD at [facility] Explanted:Qty: 1 on 05/14/2021 by Eber Tam MD at [facility] Left: Hip [facility] 01/10/2019 06-2200# / / [id number] Bone Matrix 20cc Stimulan Kit Rapid Cure - [id number] Implanted:Qty: 1 on 04/16/2021 by Eber Tam MD at [facility] Explanted:Qty: 1 on 05/14/2021 by Eber Tam MD at [facility] Left: Hip [employer] 11/11/2023 620-020 / / [id number] Cmnt Bone Simplex Atb Tobramycin - [id number] Implanted:Qty: 1 on 05/10/2017 by Eber Tam MD at [facility] Explanted:Qty: 1 on 05/14/2021 by Eber Tam MD at [facility] Left: Hip [facility] 11/10/2018 6197-9-001# / / [id number] Cmnt Bone Simplex Atb Tobramycin - [id number] Implanted:Qty: 1 on 05/10/2017 by Eber Tam MD at [facility] Explanted:Qty: 1 on 05/14/2021 by Eber Tam MD at [facility] Left: Hip [facility] 09/09/2018 6197-9-001# / / [id number] Cmnt Bone 20g Simplex P Non Atb Mv - [id number] Implanted:Qty: 1 on 05/10/2017 by Eber Tam MD at [facility] Explanted:Qty: 1 on 05/14/2021 by Eber Tam MD at [facility] Left: Hip [facility] 08/11/2019 6188-1-010# / / [id number] Cmnt Bone Simplex P 1pk - [id number] Implanted:Qty: 3 on 05/14/2021 by Eber Tam MD at [facility] Explanted:Qty: 3 on 07/10/2021 by Eber Tam MD at [facility] Left: Hip [facility] 08/10/2022 6191-1-001 / / [id number] Cable Hip 2mm [facility] Beaded Vitallium - [id number] Implanted:Qty: 2 on 05/14/2021 by Eber Tam MD at [facility] Explanted:Qty: 2 on 07/10/2021 by Eber Tam MD at [facility] Left: Hip [facility] 03/07/2026 6704-0-520 / / [id number] Cable Hip 2mm [place] Beaded Vitallium - [id number] Implanted:Qty: 1 on 05/14/2021 by Eber Tam MD at [facility] Explanted:Qty: 1 on 07/10/2021 by Eber Tam MD at [facility] Left: Hip [facility] 03/07/2026 6704-0-520 / / [id number] Dean Cemented Standard Collar Femoral Component, Size 12, 225mm Length Implanted:Qty: 1 on 05/14/2021 by Eber Tam MD at [facility] Explanted:Qty: 1 on 07/10/2021 by Eber Tam MD at [facility] Left: Hip [employer] [facility] 02/10/2024 86403813 / / [id number] Head Modular 40mm Oxin - [id number] Implanted:Qty: 1 on 05/14/2021 by Eber Tam MD at [facility] Explanted:Qty: 1 on 07/10/2021 by Eber Tam MD at [facility] Left: Hip [employer] [facility] 11/14/2026 30142494 / / [id number] Sleeve Hip +0 Neck Shrt Mod Titnm Oxin - [id number] Implanted:Qty: 1 on 05/14/2021 by Eber Tam MD at [facility] Explanted:Qty: 1 on 07/10/2021 by Eber Tam MD at [facility] Left: Hip [employer] [facility] [facility] 01/15/2025 33854812 / / [id number] Cmnt Bone Simplex Atb Tobramycin - [id number] Implanted:Qty: 1 on 06/21/2021 by Eber Tam MD at [facility] Explanted:Qty: 1 on 07/10/2021 by Eber Tam MD at [facility] Left: Hip [facility] 09/09/2022 6197-9-001 / / [id number] Cmnt Bone Simplex Atb Tobramycin - [id number] Implanted:Qty: 1 on 06/21/2021 by Eber Tam MD at [facility] Explanted:Qty: 1 on 07/10/2021 by Eber Tam MD at [facility] Left: Hip [facility] 11/10/2022 6197-9-001 / / [id number] Remedy Acetabular Cup 40mm Id / 48mm Od Implanted:Qty: 1 on 06/21/2021 by Eber Tam MD at [facility] Explanted:Qty: 1 on 07/10/2021 by Eber Tam MD at [facility] Left: Hip [facility] 10/10/2024 RHACXS / / [id number] Description:OSTEOREMEDIES Cmnt Bone 20g Simplex P Non Atb Mv - [id number] Implanted:Qty: 1 on 06/21/2021 by Eber Tam MD at [facility] Explanted:Qty: 1 on 07/10/2021 by Eber Tam MD at [facility] Left: Hip [facility] 6188-1-001 / / Description:Only Used the mo nomer out of the set Remedy Spectrm Gv, Modular Femoral Head Implanted:Qty: 1 on 06/21/2021 by Eber Tam MD at [facility] Explanted:Qty: 1 on 07/10/2021 by Eber Tam MD at [facility] Left: Hip [facility] 03/12/2025 [id number] / / [id number] Remedy Modular Stem Implanted:Qty: 1 on 06/21/2021 by Eber Tam MD at [facility] Explanted:Qty: 1 on 07/10/2021 by Eber Tam MD at [facility] Left: Hip [facility] 04/12/2025 RHSTSM / / [id number] Cmnt Bone Simplex Atb Tobramycin - [id number] Implanted:Qty: 1 on 07/10/2021 by Eber Tam MD at [facility] Explanted:Qty: 1 on 09/06/2021 by Eber Tam MD at [facility] Left: Hip [facility] 09/09/2022 6197-9-001 / / [id number] Cmnt Bone Simplex Atb Tobramycin - [id number] Implanted:Qty: 1 on 07/10/2021 by Eber Tam MD at [facility] Explanted:Qty: 1 on 09/06/2021 by Eber Tam MD at [facility] Left: Hip [facility] 12/10/2022 6197-9-001 / / [id number] Cmnt Bone Simplex Atb Tobramycin - [id number] Implanted:Qty: 1 on 07/10/2021 by Eber Tam MD at [facility] Explanted:Qty: 1 on 09/06/2021 by Eber Tam MD at [facility] Left: Hip [facility] 08/10/2022 6197-9-001 / / [id number] Pin Delores 3.5xic9yl Threaded - [id number] Implanted:Qty: 1 on 07/10/2021 by Eber Tam MD at [facility] Explanted:Qty: 1 on 09/06/2021 by Eber Tam MD at [facility] Left: Hip [employer] 00-0262-004 -04 / / Remedy Acetabular Cup 40mm Id/48mm Od Implanted:Qty: 1 on 05/14/2021 by Eber Tam MD at [facility] Explanted:Qty: 1 on 11/18/2022 at [facility] Left: Hip [facility] 10/10/2024 RHACXS / / [id number] Description:previous surgery Delores Pin, Unthreaded, Implanted:Qty: 1 on 05/10/2022 by Eber Tam MD at [facility] Explanted:Qty: 1 on 11/18/2022 at [facility] Left: Hip Description:previous surgery Liner Hip Id46mm Sz C Mdmx3 Cocr - [id number] Implanted:Qty: 1 on 07/18/2022 by Eber Tam MD at [facility] Explanted:Qty: 1 on 11/18/2022 by Eber Tam MD at [facility] Left: Hip [facility] 04/20/2027 [id number] / / [id number] Procedures Procedure Name Priority Date/Time Associated Diagnosis Comments TSH WITH REFLEX Routine 03/15/2024 3:12 PM MARINE OILER Hypothyroidism, unspecified type BASIC METABOLIC PANEL Routine 03/15/2024 3:12 PM [facility] OILER Hyponatremia SCAN-LABORATORY REPORT 12:00 AM MAR[facility] OILER CREATININE Routine 01/29/2024 10:41 AM MARINE OILER Infection of prosthetic hip joint, subsequent encounter CBC WITH AUTO DIFFERENTIAL Routine 01/29/2024 10:41 AM MAR[facility] OILER Infection of prosthetic hip joint, subsequent encounter HEPATIC FUNCTION PANEL Routine 10:41 AM MAR[facility] OILER Infection of prosthetic hip joint, subsequent encounter C-REACTIVE PROTEIN Routine 01/29/2024 10 :41 AM MAR[facility] OILER Infection of prosthetic hip joint, subsequent encounter CBC WITH AUTO DIFFERENTIAL STAT 01/23/2024 3:36 PM MAR[facility] OILER 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, initial encounter (HC) BASIC METABOLIC PANEL STAT 01/23/2024 3:36 PM MAR[facility] OILER 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, initial encounter (HC) CBC WITH AUTO DIFFERENTIAL STAT 01/23/2024 3:36 PM MARINE OILER 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, initial encounter (HC) SCAN CORRESP-LABORATORY RESULTS 01/15/2024 1:53 PM MARINE OILER T4,FREE Early AM 01/11/2024 6:19 AM CDT [...] * TSH WITH REFLEX (03/15/2024 3:12 PM MARINE OILER) TSH W/REFLEX TO FT4 0.43 0.40 - 4.50 mIU/L [facility] Blood BLOOD SPECIMEN / Unknown 03/15/2024 3:12 PM MARINE OILER 03/15/2024 3:12 PM MARINE OILER Bobbi Santa MD CHEMISTRY Fi nal Result [facility] [address] [place] [address], [facility] [address] [place] [address] * (ABNORMAL) BASIC METABOLIC PANEL (03/15/2024 3:12 PM MARINE OILER) Only the most recent of7 resultswithin the time period is included. Pathologist [facility] GLUCOSE 79 65 - 99 mg/dL [facility] [...] BLOOD SPECIMEN / Unknown 03/15/2024 3:12 PM MARINE OILER 03/15/2024 3:12 PM MARINE OILER Bobbi Santa MD CHEMISTRY Fi nal Result Performing Organization Address [facility] Co de Phone Number [facility] [address] [place] [address], [place] [phone] [facility] [address] [place] [address] * SCAN-LABORATORY REPORT (02/07/2024 12:00 AM MARINE OILER) Scanner OTHER Final Result * (ABNORMAL) CREATININE (01/29/2024 10:41 AM MARINE OILER) Only the most recent of4 resultswithin the time period is included. CREATININE 1.05(H) 0.60 - 1.00 mg/dL [facility] EGFR 54(L) > OR = 60 mL/min/1.73 m2 [facility] Blood BLOOD SPECIMEN / Unknown 01/29/2024 10:41 AM MARINE OILER 01/29/2024 10:42 AM MARINE OILER Costa Flores MD CHEMISTRY Final Res ult Performing Organization Address [facility] de Phone Number [facility] [address] [place] [address], [place] [phone] [facility] [address] [place] [address] * (ABNORMAL) C-REACTIVE PROTEIN (01/29/2024 10:41 AM MARINE OILER) Only the most recent of5 resultswithin the time period is included. C-REACTIVE PROTEIN 8.6(H) <8.0 mg/L [facility] Blood BLOOD SPECIMEN / Unknown 01/29/2024 10:41 AM MARINE OILER 01/29/2024 10:42 AM MARINE OILER Costa Flores MD CHEMISTRY Final Res ult Performing Organization Address City/[facility]/ZIP Co de Phone Number [facility] [address] [place] [address], [employer] [facility] [address] [place] [address] * (ABNORMAL) CBC AND DIFFERENTIAL (01/29/2024 10:41 AM MARINE OILER) WHITE BLOOD CELL COUNT 8.3 3.8 - [...] BLOOD SPECIMEN / Unknown 01/29/2024 10:41 AM MARINE OILER 01/29/2024 10:42 AM MARINE OILER Costa Flores MD HEMATOLOGY Final Res ult Performing Organization Address [facility]/ZIP Co de Phone Number [facility] [address] [place] [address], [facility] [address] [place] [address] * (ABNORMAL) HEPATIC FUNCTION PANEL (01/29/2024 10:41 AM MARINE OILER) PROTEIN, TOTAL 4.9(L) 6.1 - 8.1 g/dL [...] BLOOD SPECIMEN / Unknown 01/29/2024 10:41 AM MARINE OILER 01/29/2024 10:42 AM MARINE OILER Costa Flores MD CHEMISTRY Final Res ult [facility] [address] [place] [address], [facility] [address] [place] [address] * CBC WITH AUTO DIFFERENTIAL (01/23/2024 3:36 PM [facility]) Only the most recent of5 resultswithin the time period is included. WHITE BLOOD COUNT 6.4 4.5 - 11.0 thou/cu mm 01/23/2024 4:08 PM [facility] RED BLOOD COUNT 4.03 4.00 - 5.20 mil/cu mm 01/23/2024 4:08 PM [facility] HEMOGLOBIN 12.4 12.0 - 16.0 g/dL 01/23/2024 4:08 PM [facility] HEMATOCRIT 36.4 33.0 - 51.0 % 01/23/2024 4:08 PM [facility] MCV 90 80 - 100 fL 01/23/2024 4:08 PM [facility] MCH 30.8 26.0 - 34.0 pg 01/23/2024 4:08 PM [facility] MCHC 34.1 32.0 - 36.0 g/dL 01/23/2024 4:08 PM [facility] RDW 15.3 11.5 - 15.5 % 01/23/2024 4:08 PM [facility] PLATELET COUNT 329 140 - 440 thou/cu mm 01/23/2024 4:08 PM [facility] MPV 10.6 6.5 - 11.0 fL 01/23/2024 4:08 PM [facility] NRBC 0.0 % 01/23/2024 4:08 PM [facility] ABS NRBC 0.0 thou /cu mm 01/23/2024 4:08 PM [facility] % NEUT 72.6 % 01/23/2024 4:08 PM [facility] % LYMPH 15.6 % 01/23/2024 4:08 PM [facility] % MONO 9.7 % 01/23/2024 4:08 PM [facility] % EOS 0.9 % 01/23/2024 4:08 PM [facility] % BASO 0.9 % 01/23/2024 4:08 PM MARINE OILER [facility] % IMMATURE GRAN (METAS,MYELOS,AZ OS) 0.3 % 01/23/2024 4:08 PM MARINE OILER [facility] ABSOLUTE NEUTROPHILS 4.6 1.7 - 7.0 thou/cu mm 01/23/2024 4:08 PM MARINE OILER [facility] ABSOLUTE LYMPHOCYTES 1.0 0.9 - 2.9 thou/cu mm 01/23/2024 4:08 PM MARINE OILER [facility] ABSOLUTE MONOCYTES 0.6 <0.9 thou/cu mm 01/23/2024 4:08 PM MARINE OILER [facility] ABSOLUTE EOSINOPHILS 0.1 <0.5 thou/cu mm 01/23/2024 4:08 PM MARINE OILER [facility] ABSOLUTE BASOPHILS 0.1 <0.3 thou/cu mm 01/23/2024 4:08 PM MARINE OILER [facility] ABSOLUTE IMMATURE GRANULOCYTES(MET ,MYELOS,PROS) 0.0 <0.3 thou/cu mm 01/23/2024 4:08 PM [facility] Blood BLOOD SPECIMEN / Unknown [facility] / Unknown 01/23/2024 3:36 PM MARINE OILER 01/23/2024 3:57 PM MARINE OILER Narrative [facility] - 01/23/2024 4:08 PM MARINE OILER This procedure was originally ordered at [facility]. Costa Flores MD HEMATOLOGY Final Res ult [facility] SENDOUT INTERNAL ZIP [id number] [place] [address] * SCAN CORRESP-LABORATORY RESULTS (01/15/2024 1:53 PM MARINE OILER) Narrative 01/15/2024 1:53 PM MARINE OILER Ordered by an unspecified provider. us Other Clinical Staff OTHER Final Resul t * TSH (01/11/2024 6:19 AM CDT) Only the most recent of4 resultswithin the time period is included. TSH 2.04 0.27 - 4.20 uIU/mL 01/11/2024 6:54 AM CDT [facility] Blood BLOOD SPECIMEN / Unknown Non-Lab Venipuncture / Unknown 01/11/2024 6:19 AM CDT 01/11/2024 6:20 AM CDT Narrative [facility] - 01/11/2024 6:54 AM CDT In Adults, TSH values between 5.00 and 10.00 uIU/ml do not necessarily indicate the presence of Hypothyroidism. Correlation with clinical findings such as presence of goiter and/or Thyroperoxidase (TPO) Antibody may be helpful. For more information please refer to TOM 2004; 291: 228-238. Jean-Claude Sheldon MD CHEMISTRY Final Resul t Performing Organization Address City/[facility]/ZIP Co de Phone Number [facility] [address] [address], [place] * T4,FREE (01/11/2024 6:19 AM CDT) Only the most recent of2 resultswithin the time period is included. T4,FREE 1.42 0.93 - 1.70 ng/dL 01/11/2024 6:54 AM CDT [facility] Blood BLOOD SPECIMEN / Unknown Non-Lab Venipuncture / Unknown 01/11/2024 6:19 AM CDT 01/11/2024 6:20 AM CDT Jean-Claude Sheldon MD CHEMISTRY Final Resul t Performing Organization Address City/[facility]/ZIP Co de Phone Number [facility] [address] [address], [place] * SODIUM (01/08/2024 12:36 PM CDT) Only the most recent of13 resultswithin the time period is included. SODIUM 136 136 - 145 mmol/L 01/08/2024 1:23 PM CDT [facility] Blood BLOOD SPECIMEN / Unknown Non-Lab Venipuncture / Unknown 01/08/2024 12:36 PM CDT 01/08/2024 12:51 PM CDT Olivia Cruz MD CHEMISTRY Final Result Performing Organization Address [facility]/ZIP Co de Phone Number [facility] [address] [place] [address], [place] * CLOSTRIDIOIDES DIFFICILE TOXIN PCR (01/06/2024 10:08 AM CDT) CLOSTRIDIUM DIFFICILE PCR Negative 01/06/2024 12:21 PM CDT [facility] PRESUMPTIVE NAP1 STRAIN Negative 01/06/2024 12:21 PM CDT [facility] Stool STOOL SPECIMEN / Unknown Non-Blood / Unknown 01/06/2024 10:08 AM CDT 01/06/2024 10:16 AM CDT Narrative [facility] - 01/06/2024 12:21 PM CDT The NAP1 (027 or BI) strain is a hypervirulent strain. Detection may be useful for epidemiological purposes. Dona Villagomez MD MICROBIOLOGY Final Result Performing Organization Address [facility] Co de Phone Number [facility] [address] [place], [place] [id number], [place] * PLATELET COUNT (01/05/2024 6:13 AM CDT) Pathologist [facility] [place] PLATELET COUNT 217 140 - 440 thou/cu mm 01/05/2024 6:56 AM CDT [facility] MPV 8.9 6.5 - 11.0 fL 01/05/2024 6:56 AM CDT [facility] Blood BLOOD SPECIMEN / Unknown Non-Lab Venipuncture / Unknown 01/05/2024 6:13 AM CDT 01/05/2024 6:47 AM CDT Dakotah Solano MD HEMATOLOGY Final Resul t Performing Organization Address City/[facility]/ZIP Co de Phone Number [facility] [address] [place] [address], [place] * (ABNORMAL) URINALYSIS MICROSCOPIC (01/04/2024 7:48 PM CDT) RBC >100(A) 0-2, None Seen /HPF 01/04/2024 9:34 PM CDT [facility] WBC 11-25(A) 0-2, 3-5, None Seen /HPF 01/04/2024 9:34 PM CDT [facility] BACTERIA None Seen None Seen, Rare, Few Bacteria/ HPF 01/04/2024 9:34 PM CDT [facility] EPITHELIAL CELLS None Seen None Seen, Few Epi/HPF 01/04/2024 9:34 PM CDT [facility] HYALINE CASTS 0-2 0-2, 3-5 /LPF 01/04/2024 9:34 PM CDT [facility] Urine URINE SPECIMEN / Unknown Non-Blood / Unknown 01/04/2024 7:48 PM CDT 01/04/2024 7:54 PM CDT us Angelika HANNA URINE Final R esult [facility] [address] [place] [address], * (ABNORMAL) UA W/ SEDIMENT EXAM REFLEXED PER CRITERIA (01/04/2024 7:48 PM CDT) COLOR [place](A) Yellow Color 01/04/2024 9:34 PM CDT [facility] CLARITY Cloudy(A) Clear Clarity 01/04/2024 9:34 PM CDT [facility] SPECIFIC GRAVITY,URINE 1.010 1.010, 1.015, 1.020, 1.025 01/04/2024 9:34 PM CDT [facility] PH,URINE 6.5 6.0, 7.0, 8.0, 5.5, 6.5, 7.5, 8.5 01/04/2024 9:34 PM CDT [facility] UROBILINOGEN, QUALITATIVE Normal Normal EU/dl 01/04/2024 9:34 PM CDT [facility] PROTEIN, URINE 100(A) Negative mg/dL 01/04/2024 9:34 PM CDT [facility] GLUCOSE, URINE Negative Negative mg/dL 01/04/2024 9:34 PM CDT [facility] KETONES,URINE Negative Negative mg/dL 01/04/2024 9:34 PM CDT [facility] BILIRUBIN,URI NE Negative Negative 01/04/2024 9:34 PM CDT [facility] OCCULT BLOOD,URINE Large(A) Negative 01/04/2024 9:34 PM CDT [facility] NITRITE Negative Negative 01/04/2024 9:34 PM CDT [facility] LEUKOCYTE ESTERASE Small(A) Negative 01/04/2024 9:34 PM CDT [facility] Urine URINE SPECIMEN / Unknown Non-Blood / Unknown 01/04/2024 7:48 PM CDT 01/04/2024 7:54 PM CDT Angelika HANNA URINE Final R esult [facility] [address] [place] [place] [address], [place] * SCAN CORRESP-IMAGING (01/04/2024 11:59 AM [...] - 5.1 mmol/L 01/03/2024 12:58 AM CDT [facility] Blood BLOOD SPECIMEN / Unknown Non-Lab Venipuncture / Unknown 01/03/2024 12:04 AM CDT 01/03/2024 12:12 AM CDT us Dakotah Solano MD CHEMISTRY Final Resul t [facility] [address] [place] [address], * (ABNORMAL) T3,TOTAL (01/03/2024 12:04 AM CDT) T3,TOTAL 65(L) 85 - 202 ng/dL 01/03/2024 1:43 AM CDT [facility] Blood BLOOD SPECIMEN / Unknown Non-Lab Venipuncture / Unknown 01/03/2024 12:04 AM CDT 01/03/2024 12:12 AM CDT us Dakotah Solano MD CHEMISTRY Final Resul t [facility] [address] [place] [address], [place] * SCAN-CARDIAC STRIP (01/02/2024 12:00 AM CDT) Narrative 01/02/2024 12:00 AM CDT Ordered by an unspecified provider. us Other Clinical Staff OTHER Final Resul t * VANCOMYCIN TROUGH (01/01/2024 1:45 PM CDT) Only the most recent of4 resultswithin the time period is included. VANCOMYCIN,TRO UGH 18.2 7.0 - 20.0 ug/mL 01/01/2024 2:44 PM CDT [facility] DATE OF LAST DOSE,TROUGH 12/31/2023 01/01/2024 2:44 PM CDT [facility] TIME OF LAST DOSE,TROUGH 2:00 PM 01/01/2024 2:44 PM CDT [facility] Blood BLOOD SPECIMEN / Unknown Non-Lab Butterfly / Unknown 01/01/2024 1:45 PM CDT 01/01/2024 2:20 PM CDT Costa Flores MD CHEMISTRY Final Res ult Performing Organization Address [facility] Co de Phone Number [facility] [address] [place] [address] * CK TOTAL (01/01/2024 1:45 PM CDT) Only the most recent of2 resultswithin the time period is included. CK,TOTAL 64 26 - 192 IU/L 01/01/2024 2:41 PM CDT [facility] Blood BLOOD SPECIMEN / Unknown Non-Lab Butterfly / Unknown 01/01/2024 1:45 PM CDT 01/01/2024 2:20 PM CDT Costa Flores MD CHEMISTRY Final Res ult [facility] [address] [place] [address] * MAGNESIUM (12/26/2023 12:20 PM CDT) [facility] MAGNESIUM 1.6 1.6 - 2.4 mg/dL 12/26/2023 1:25 PM CDT [facility] Blood BLOOD SPECIMEN / Unknown Line/Port / Unknown 12/26/2023 12:20 PM CDT 12/26/2023 12:54 PM CDT Costa Flores MD CHEMISTRY Final Res ult Performing Organization Address [facility]/ZIP Co de Phone Number [facility] [address] [place] [address] * RED CELL MORPHOLOGY (12/20/2023 10:08 AM CDT) [facility] RBC COMMENT RBC morphology appears normal RBC morphology appears normal, RBC morphology within normal limits for newborns. 12/20/2023 11:35 AM CDT [facility] LARGE PLATELETS Present 12/20/2023 11:35 AM CDT [facility] Blood BLOOD SPECIMEN / Unknown Non-Lab Venipuncture / Unknown 12/20/2023 10:08 AM CDT 12/20/2023 10:48 AM CDT Narrative [facility] - 12/20/2023 11:35 AM CDT This procedure was originally ordered at [facility]. Costa Flores MD HEMATOLOGY Final Res ult [facility] [address] [place] [address] * PLATELET ESTIMATE (12/20/2023 10:08 AM CDT) [facility] PLATELET ESTIMATE Adequate Adequate, No estimate 12/20/2023 11:35 AM CDT [facility] Blood BLOOD SPECIMEN / Unknown Non-Lab Venipuncture / Unknown 12/20/2023 10:08 AM CDT 12/20/2023 10:48 AM T [facility] - 12/20/2023 11:35 AM CDT This procedure was originally ordered at [facility]. us Costa Flores MD HEMATOLOGY Final Res ult [facility] [address] [place] [address] * (ABNORMAL) MANUAL DIFFERENTIAL (12/20/2023 10:08 AM CDT) % NEUTROPHILS 84.0 % 12/20/2023 11:35 AM [facility] % LYMPHOCYTES 6.0 % 12/20/2023 11:35 AM [facility] % MONOCYTES 10.0 % 12/20/2023 11:35 AM [facility] % EOSINOPHILS 0.0 % 12/20/2023 11:35 AM [facility] % BASOPHILS 0.0 % 12/20/2023 11:35 AM [facility] NEUTROPHILS ABSOLUTE 3.0 1.7 - 7.0 thou/cu mm 12/20/2023 11:35 AM [facility] LYMPHOCYTES ABSOLUTE 0.2(L) 0.9 - 2.9 thou/cu mm 12/20/2023 11:35 AM [facility] MONOCYTES ABSOLUTE 0.4 <0.9 thou/cu mm 12/20/2023 11:35 AM [facility] EOSINOPHILS ABSOLUTE 0.0 <0.5 thou/cu mm 12/20/2023 11:35 AM [facility] BASOPHILS ABSOLUTE 0.0 <0.3 thou/cu mm 12/20/2023 11:35 AM [facility] Blood BLOOD SPECIMEN / Unknown Non-Lab Venipuncture / Unknown 12/20/2023 10:08 AM CDT 12/20/2023 10:48 AM T [facility] - 12/20/2023 11:35 AM CDT This procedure was originally ordered at [facility]. us Costa Flores MD HEMATOLOGY Final Res ult [facility] [address] [place] [address] * ANTI HCV (12/28/2020 11:38 AM CDT) HEPATITIS C ANTIBODY Non-React jorge Non-React jorge 12/28/2020 8:51 PM CDT [facility] Comment:Antibodies to HCV no t detected; does not exclude the possibility of exposure to HCV. Blood BLOOD SPECIMEN / Unknown Butterfly / Unknown 12/28/2020 11:38 AM CDT 12/28/2020 11:38 AM CDT us Alexandria Lynch MD SEND OUTS Final Re sult Performing Organization Address City/[facility]/ZIP Co de Phone Number [facility] [address] [place] [address], [place] from Last 3 Months or Most [...] [address] [place] [address] [employer] [facility] [place] [id number] [address] [place] [id number] Advance Directives Documents on File Type Date Recorded Patient Patient'S Librarian Expl anation Healthcare Directive 11/22/2023 024 POLST [...] Code Status Discussion: Reviewed Preferences Care Teams Home Energy Consultant Relationship Specialty Start Date End Date Alexandria Lynch MD [address] [place] [address] PCP - General Family Practice 03/28/22 Essence Palomo MD Oncology - Gynecologic 09/01/16 Lemuel Kilpatrick MD Consulting Physician Surgery - Orthopedics 12/13/16 Zoila Fink MD Consulting Physician Hospice and Palliative Medicine - Family Medicine 12/13/16 Eber Tam MD [address] [place] [address] Surgery - Orthopedics 12/09/19 [facility] [address] [place] [address] 02/13/24
--- OUTSIDE RECORDS SUMMARY | 2024-03-17 18:01 | XMS_ITS | Continuity of Care Document ---
Author Name [facility] User [email or web address]-a llowed Address Unknown Organization Unknown Address Unknown Procedures FILTER APPLIED:Only known Procedures with Onset Date within the last 5 years Procedure Date Procedure Provider Additiona l Information Status [facility] DECLOT IVAD OR CATH W THROMBOLYTIC (18380) Completed PLATELET COUNT (53247) C ompleted URINALYSIS MICROSCOPIC (11210) Completed UA W/ SEDIMENT EXAM REFLEXED PER CRITERIA (13376) Completed T3,TOTAL (78688) Complet ed TSH (74864) Completed CREATININE (48136) Compl eted POTASSIUM (10900) Comple anaya SODIUM (19988) Completed T4,FREE (71527) Complete d Encounters FILTER APPLIED:Only known Encounters with Admission Date within the last 5 years Encounter Location Admission Discharge Billing Code [place]iting Can Worker Attender [facility] AURELIA ALBERT
[2024-03-17 18:06] LABS: Chloride* 106 mmol/L (96-114); Potassium* 4.1 mmol/L (3.6-5.1); Sodium* 137 mmol/L (135-149)
[2024-03-17 18:09] LABS: Anion Gap 9 mEq/L (7-15); Blood Urea Nitrogen* 52 mg/dL (7-30); Calcium* 10.8 mg/dL (8.4-10.6); Carbon Dioxide* 22 mmol/L (20-32); Creatinine* 2.4 mg/dL (0.5-1.5); Est. Creatinine Clearance* 17.29; Estimated Glomerular Filt Rate 20 ml/min; Glucose* 81 mg/dL (60-115)
[2024-03-17 18:27] LABS: PCR FLU A Negative PCR FLU A (Negative); PCR FLU B Negative PCR FLU B (Negative); PCR RSV Negative PCR RSV (Negative); SARS PCR* Negative SARS-CoV-2 (Negative)
[2024-03-17 18:31] LABS: Troponin I* < 0.01 ng/mL (0.01-0.04)
--- NOTE | 2024-03-17 19:37 | ED.NURSE ---
Assumes care of pt at 1900
[2024-03-17] MEDS: DOXYCYCLINE HYCLATE 100 MG PO (22:09)
[2024-03-18] VITALS (10 sets, daily range): BP systolic 73–162; BP diastolic 46–82; PULSE 68–110; RESP 16; TEMP 36.3–36.4; O2SAT 96–99; BMI 20.7
--- NOTE | 2024-03-18 00:42 | P.IMHP_ITS ---
Hospitalist- H&P: HPI History of Present Illness Time Seen by Provider: 23:40 Date Seen: 03/17/24 Chief complaint: Fall Narrative: Joellen Tam is a 78 year old female with a history of orthostatic hypotension, pathologic fracture due to metastatic adenocarcinoma, history of PE provoked by endometrial cancer, hyperlipidemia, hypothyroidism, polyneuropathy, and chronic infection of left hip who had a fall in the bathroom after foot got caught in a rug. She notes chronic issues such is orthostatic hypotension the cause dizziness as well as a leg length discrepancy that causes her to have difficulty balancing. She also tells me that she has had more than a decade of intermittent episodes of decreased appetite and within the last 7 years she has had periodic nausea and vomiting with these episodes as well. She started having low appetite about 3 days ago and had emesis yesterday. Due to all of this she has not really eaten or had anything to drink in the last 3 days. She denies any other symptoms such as fevers or chills, night sweats, chest pain, shortness of breath, urinary symptoms, focal numbness weakness or tingling. She attributes her GI symptoms to all the medications that she has to take. She notes that she is currently holding aspirin because she has a kidney stone for which she is getting lithotripsy and ureteral stent removal in 3 days. Review of Systems Status of ROS: Reports: 10 or more systems reviewed and unremarkable except as noted in History and below [facility] Medical History (Updated 03/18/24 @ 01:16 by Rajni Alex MD) CKD (chronic kidney disease), stage II ?N18.2 - Chronic kidney disease, stage 2 (mild) (ICD-10) Right ureteral stone (01/02/24) ?N20.1 - Calculus of ureter (ICD-10) Pathological fracture in neoplastic disease (08/19/16) ?M84.50XA - Pathological fracture in neoplastic disease, unspecified site, initial encounter for fracture (ICD-10) Normocytic anemia (11/21/23) ?D64.9 - Anemia, unspecified (ICD-10) Hypothyroidism, unspecified (10/06/20) ?E03.9 - Hypothyroidism, unspecified (ICD-10) Hyponatremia (01/02/24) ?E87.1 - Hypo-osmolality and hyponatremia (ICD-10) HLD (hyperlipidemia) (12/11/19) ?E78.5 - Hyperlipidemia, unspecified (ICD-10) History of pulmonary embolus (PE) (03/23/17) ?Z86.711 - Personal history of pulmonary embolism (ICD-10) History of endometrial cancer (11/22/22) ?Z85.42 - Personal history of malignant neoplasm of other parts of uterus (ICD-10) Combined form of senile cataract of both eyes (04/03/23) ?H25.813 - Combined forms of age-related cataract, bilateral (ICD-10) Closed wedge compression fracture of L1 vertebra with routine healing (01/02/24) ?S32.010D - Wedge compression fracture of first lumbar vertebra, subsequent encounter for fracture with routine healing (ICD-10) Chronic infection of left hip, currently on antibiotics (03/25/22) ?M00.9 - Pyogenic arthritis, unspecified (ICD-10) B12 deficiency (08/13/22) ?E53.8 - Deficiency of other specified B group vitamins (ICD-10) Alopecia (01/03/24) ?L65.9 - Nonscarring hair loss, unspecified (ICD-10) Age-related osteoporosis without current pathological fracture (10/06/20) ?M81.0 - Age-related osteoporosis without current pathological fracture (ICD- 10) Acquired leg length discrepancy (07/19/23) ?M21.70 - Unequal limb length (acquired), unspecified site (ICD-10) Acquired hypothyroidism (01/03/24) ?E03.9 - Hypothyroidism, unspecified (ICD-10) Surgical History (Updated 03/18/24 @ 00:56 by Rajni Alex MD) S/P laparoscopic hysterectomy (~03/30/17) ?Z90.710 - Acquired absence of both cervix and uterus (ICD-10) History of total left hip arthroplasty ?Z96.642 - Presence of left artificial hip joint (ICD-10) Family History (Updated 03/18/24 @ 00:57 by Rajni Alex MD) Sister DVT (deep venous thrombosis) Father No problems noted. 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 Denies tobacco, alcohol or recreational drug use. Wishes to be a full code. Smoking Status: Never smoker Do you use any of these nicotine containing products: None How often do you have a drink containing alcohol: never How often do you have six or more drinks on one occasion: Never AUDIT-C Alcohol total score: 0 Non-prescribed substance use: denies use Meds Home Medications and Allergies Home Medications ?Medication ?Instructions ?Recorded ?Confirmed ?Type atorvastatin 40 mg tablet 40 mg PO HS 12/25/23 03/17/24 History gabapentin 100 mg capsule 300 mg PO QPM 12/25/23 03/17/24 History levofloxacin 750 mg tablet 750 mg PO DAILY 12/25/23 03/17/24 History levothyroxine 75 mcg tablet 75 mcg PO DAILY 12/25/23 03/17/24 History midodrine 2.5 mg tablet See Rx Instructions PO .COMPLEX 12/25/23 03/17/24 History ondansetron 4 mg disintegrating 4 mg PO Q8H PRN 12/25/23 03/17/24 History tablet oxycodone 5 mg tablet 5 mg PO HS PRN pain 12/25/23 03/17/24 History acetaminophen 500 mg tablet 1,000 mg PO BID 03/17/24 03/18/24 History aspirin 325 mg tablet,delayed 325 mg PO DAILY 03/17/24 03/17/24 History release calcium citrate 1,000 mg PO DAILY 03/17/24 03/18/24 History cholecalciferol (vitamin D3) 125 5,000 unit PO DAILY 03/17/24 03/18/24 History mcg (5,000 unit) capsule diphenhydramine HCl 25 mg tablet 25 mg PO HS 03/17/24 03/18/24 History doxycycline monohydrate 100 mg 100 mg PO Q12H 03/17/24 03/18/24 History capsule ferrous sulfate 325 mg (65 mg 325 mg PO DAILY 03/17/24 03/18/24 History iron) tablet Allergies Allergy/AdvReac Type Severity Reaction Status Date / Time Sulfa (Sulfonamide Allergy Mild Verified 03/17/24 16:45 Antibiotics) Exam Narrative: Exam Narrative: General: No acute distress. Awake alert oriented x3. HEENT: Normocephalic atraumatic, pupils equally round and reactive to light and accommodation. Oropharynx clear. Mucous membranes are moist. No cervical lymphadenopathy, thyromegaly or carotid bruits. No JVD. Cardiovascular: Regular rate and rhythm. No murmurs, gallops, or rubs. Chest: No increased work of breathing. Clear to auscultation bilaterally. No crackles or wheezes. Abdomen: Bowel sounds present. Soft, nondistended, nontender. No hepatosplenomegaly or masses. Extremities: Muscle waisting noted in extremities. No edema, no cyanosis or clubbing. Skin: No jaundice, no pallor, no rashes. Neuro: Grossly intact. No focal deficits. Const: Vital Signs, click to edit/add: Vital Signs - 24 hr 03/17/24 16:41 03/17/24 16:53 03/17/24 17:00 Temperature 97.6 F Pulse Rate 83 79 Pulse Rate [Right Pulse Oximeter] 92 Pulse Rate [orthos tatic lying Pulse Oximeter] Pulse Rate [orthos tatic sitting Puls e Oximeter] Pulse Rate [orthos tatic standing Pul se Oximeter] Respiratory Rate 18 Blood Pressure Blood Pressure [Ri ght Upper Arm] 149/79 H Blood Pressure [or thostatic lying Le ft Arm] Blood Pressure [or thostatic sitting] Blood Pressure [or thostatic standing Left Arm] Pulse Oximetry 99 94 94 Oxygen Delivery Me thod Room Air 03/17/24 17:15 03/17/24 17:30 03/17/24 17:45 Temperature Pulse Rate 69 66 63 Pulse Rate [Right Pulse Oximeter] Pulse Rate [orthos tatic lying Pulse Oximeter] Pulse Rate [orthos tatic sitting Puls e Oximeter] Pulse Rate [orthos tatic standing Pul se Oximeter] Respiratory Rate Blood Pressure Blood Pressure [Ri ght Upper Arm] Blood Pressure [or thostatic lying Le ft Arm] Blood Pressure [or thostatic sitting] Blood Pressure [or thostatic standing Left Arm] Pulse Oximetry 98 98 99 Oxygen Delivery Me thod 03/17/24 18:00 03/17/24 18:15 03/17/24 18:30 Temperature Pulse Rate 64 63 60 Pulse Rate [Right Pulse Oximeter] Pulse Rate [orthos tatic lying Pulse Oximeter] Pulse Rate [orthos tatic sitting Puls e Oximeter] Pulse Rate [orthos tatic standing Pul se Oximeter] Respiratory Rate Blood Pressure Blood Pressure [Ri ght Upper Arm] Blood Pressure [or thostatic lying Le ft Arm] Blood Pressure [or thostatic sitting] Blood Pressure [or thostatic standing Left Arm] Pulse Oximetry 97 96 97 Oxygen Delivery Co thod 03/17/24 18:45 03/17/24 19:00 03/17/24 19:04 Temperature Pulse Rate 64 66 Pulse Rate [Right Pulse Oximeter] Pulse Rate [orthos tatic lying Pulse Oximeter] 68 Pulse Rate [orthos tatic sitting Puls e Oximeter] 71 Pulse Rate [orthos tatic standing Pul se Oximeter] 99 Respiratory Rate Blood Pressure Blood Pressure [Ri ght Upper Arm] Blood Pressure [or thostatic lying Le ft Arm] 155/77 H Blood Pressure [or thostatic sitting] 134/65 Blood Pressure [or thostatic standing Left Arm] 73/46 L Pulse Oximetry 98 [facility] 19:15 03/17/24 19:29 03/17/24 19:30 Temperature Pulse Rate 63 69 75 Pulse Rate [Right Pulse Oximeter] Pulse Rate [orthos tatic lying Pulse Oximeter] Pulse Rate [orthos tatic sitting Puls e Oximeter] Pulse Rate [orthos tatic standing Pul se Oximeter] Respiratory Rate Blood Pressure 155/77 H Blood Pressure [Ri ght Upper Arm] Blood Pressure [or thostatic lying Le ft Arm] Blood Pressure [or thostatic sitting] Blood Pressure [or thostatic standing Left Arm] Pulse Oximetry 98 97 98 [facility] 03/17/24 19:31 03/17/24 19:32 03/17/24 19:33 Temperature Pulse Rate 78 95 Pulse Rate [Right Pulse Oximeter] Pulse Rate [orthos tatic lying Pulse Oximeter] Pulse Rate [orthos tatic sitting Puls e Oximeter] Pulse Rate [orthos tatic standing Pul se Oximeter] Respiratory Rate Blood Pressure 134/65 73/46 L Blood Pressure [Ri ght Upper Arm] Blood Pressure [or thostatic lying Le ft Arm] Blood Pressure [or thostatic sitting] Blood Pressure [or thostatic standing Left Arm] Pulse Oximetry 97 [facility] 03/17/24 19:45 03/17/24 20:00 03/17/24 20:15 Temperature Pulse Rate 79 68 74 Pulse Rate [Right Pulse Oximeter] Pulse Rate [orthos tatic lying Pulse Oximeter] Pulse Rate [orthos tatic sitting Puls e Oximeter] Pulse Rate [orthos tatic standing Pul se Oximeter] Respiratory Rate Blood Pressure Blood Pressure [Ri ght Upper Arm] Blood Pressure [or thostatic lying Le ft Arm] Blood Pressure [or thostatic sitting] Blood Pressure [or thostatic standing Left Arm] Pulse Oximetry 97 98 99 [facility] 03/17/24 20:30 03/17/24 20:45 03/17/24 21:00 Temperature Pulse Rate 76 70 72 Pulse Rate [Right Pulse Oximeter] Pulse Rate [orthos tatic lying Pulse Oximeter] Pulse Rate [orthos tatic sitting Puls e Oximeter] Pulse Rate [orthos tatic standing Pul se Oximeter] Respiratory Rate Blood Pressure Blood Pressure [Ri ght Upper Arm] Blood Pressure [or thostatic lying Le ft Arm] Blood Pressure [or thostatic sitting] Blood Pressure [or thostatic standing Left Arm] Pulse Oximetry 98 98 [facility] 03/17/24 21:15 03/17/24 21:30 Temperature Pulse Rate 78 71 Pulse Rate [Right Pulse Oximeter] Pulse Rate [orthos tatic lying Pulse Oximeter] Pulse Rate [orthos tatic sitting Puls e Oximeter] Pulse Rate [orthos tatic standing Pul se Oximeter] Respiratory Rate Blood Pressure Blood Pressure [Ri ght Upper Arm] Blood Pressure [or thostatic lying Le ft Arm] Blood Pressure [or thostatic sitting] Blood Pressure [or thostatic standing Left Arm] Pulse Oximetry 99 97 Oxygen Delivery [facility] Hospitalist - H&P: Result Labs Labs: Short CBC 03/17/24 Range/Units 17:37 WBC 10.57 (4.50-11.00) K/uL Hgb 10.4 L (12.0-16.0) gm/dL Hct 31.6 L (33.0-51.0) % Plt Count 278 (140-440) K/uL BMP 03/17/24 17:37 Sodium 137 Potassium 4.1 Chloride 106 Carbon Dioxide 22 BUN 52 H Creatinine 2.4 H Glucose 81 Calcium 10.8 H Cardiac Enzymes 03/17/24 03/17/24 Range/Units 17:37 17:37 Troponin I < 0.01 L Cancelled (0.01-0.04) ng/mL 03/17/2024 EKG: Normal sinus rhythm, 69 beats per minute, normal EKG. Ordering Physician: Miguel Angel Pinzon D.O. Date of Service: 01/02/24 Procedure(s): CT abdomen pelvis wo con Accession Number(s): [id number] cc: Miguel Angel Pinzon D.O.; Provider,Not a Local~ For Patients: As a result of the Cures Act, medical imaging exams and procedure reports are released immediately into your electronic medical record. You may view this report before your referring provider. If you have questions, please contact your health care provider. Indication: Right lower flank pain. Technique: CT of the abdomen and pelvis was performed without contrast. Comparison: None available. Findings: Visualized lung bases: Trace right greater than left pleural effusions. Liver: Unremarkable for unenhanced technique. Multiple small gallstones in the gallbladder body and neck. No pericholecystic inflammatory change. No biliary ductal dilation. Pancreas: Unremarkable for unenhanced technique. Spleen: Unremarkable for unenhanced technique. Adrenals: Unremarkable for unenhanced technique. Kidneys: Mild right hydronephrosis secondary to an 8 mm ureteropelvic junction calculus. More distal within the right ureter, there is a 2nd calculus measuring 4 mm just proximal to the ureterovesical junction. Additional bilateral renal calculi measure up to 7 mm on the right and 10 mm on the left. No left hydronephrosis. Asymmetric right perinephric stranding. Aorta/IVC: Moderate atherosclerotic aortic calcifications without aneurysmal dilation. Lymph nodes: No lymphadenopathy. Bowel: Nonobstructed bowel. Colonic diverticulosis without findings of acute diverticulitis. Normal appendix. No localized inflammatory changes. No intraperitoneal free air or fluid. Pelvis: Partially obscured secondary to beam hardening artifact from the patient`s left hip prosthesis. Uterus is surgically absent. Bones/body wall: Osseous demineralization. Osteoporotic compression fracture involving the inferior endplate of L1 with associated fracture line. There is approximately 30 percent loss of vertebral body height. Multilevel degenerative disc disease. Severe facet arthropathy. Asymmetric atrophy of the left iliopsoas musculature and gluteal musculature, likely postoperative. Impression: 1. There are 2 right ureteral calculi with mild right hydronephrosis. The larger calculus is at the ureteropelvic junction measuring 8 mm and the smaller is just proximal to the ureterovesical junction measuring 4 mm. Right perinephric stranding may be reactive versus infectious. 2. Additional bilateral renal calculi as described. 3. Acute appearing L1 inferior endplate osteoporotic compression fracture with approximately 30 percent vertebral body height loss. 4. Cholelithiasis. 5. Trace bilateral pleural effusions. 6. Colonic diverticulosis. Please note that all CT scans at this facility use dose modulation, iterative reconstruction, and/or weight-based dosing when appropriate to reduce radiation dose to as low as reasonably achievable. Dictated by Cari Orta MD @ 01/02/2024 10:27:56 AM (Electronically Signed) Assessment and Plan Assessment and plan (1) MARJORIE (acute kidney injury): Problem comment: - suspect due to dehydration - was given 2L IVF in ER. Recheck Cr in am. Encourage po intake/fluids Status: Acute (2) CKD (chronic kidney disease), stage II: Problem comment: baseline Cr 0.9-1 Status: Chronic (3) Acute dehydration: Problem comment: - as above Status: Acute (4) Orthostatic hypotension: Problem comment: - exacerbated by dehydration. Check daily orthostatic BPs. Continue midodrine Status: Chronic (5) Ureteral stent present: Problem comment: - sees urologist, planning procedure and stent removal this week Status: Acute (6) Nephrolithiasis: Problem comment: - sees urologist, planning procedure and stent removal this week Status: Acute (7) Chronic infection of left hip, currently on antibiotics: Problem comment: - continue doxycycline and levofloxacin Status: Chronic (8) Weight loss: Problem comment: - 01/02/24 wt 63.5kg, today 56.7kg, unintentional. Patient states she does not use Nutrional supplements because she hates milk and doesn't like the fruit flavored ones. Status: Acute (9) Protein-calorie malnutrition, moderate: Status: Acute (10) Poor appetite: Problem comment: - intermittent, acute on chronic. Associated with nausea, vomiting, these are also not new. Not previously worked up, however. May benefit from further w/u with EGD or gastric emptying study. Status: Acute Total Time Spent Total Time Spent: Time spent: Today I spent 75 minutes seeing the patient, discussing the patient with ER staff, reviewing Expanse and EPIC notes/diagnostics, discussing the care plan with residential and documenting my impressions and plan in the medical record.
[2024-03-18] MEDS: diphenhydrAMINE 25 MG CAPSULE PO ×2 (01:07→22:19)
[2024-03-18] MEDS: GABAPENTIN 100 MG CAPSULE 300 MG PO ×2 (01:07→22:17)
[2024-03-18] MEDS: ACETAMINOPHEN 500 MG TABLET 1000 MG PO ×3 (02:15→22:18)
[2024-03-18] MEDS: LEVOTHYROXINE 75 MCG TABLET PO (06:49)
--- NOTE | 2024-03-18 07:41 | PC.NURSE ---
End of shift - Pt arrived from ED at approximately 2215. Not up during shift, reported not feeling steady of her feet. Transferred to bed from stretcher using lateral transfer device. Functionally incontinent of bladder during shift. Tolerating RA and regular diet. Denied pain, SOB, N/V. Appears to be resting in bed at end of shift with call light within reach.
[2024-03-18] MEDS: DOXYCYCLINE HYCLATE 100 MG PO ×2 (09:39→22:19)
[2024-03-18] MEDS: MIDODRINE HCL 5 MG TABLET PO ×2 (09:39→12:37)
[2024-03-18] MEDS: SODIUM CHLORIDE 0.9 % (FLUSH) 10 ML SYRINGE 5 ML IVF (09:40)
[2024-03-18] MEDS: FERROUS SULFATE 325 MG TABLET PO (09:40)
[2024-03-18 11:26] LABS: Ionized Calcium* 1.26 mmol/L (1.11-1.30); Lactate* 1.8 mmol/L (0.5-1.9)
[2024-03-18 11:31] LABS: Basophils Absolute Auto 0.04 K/uL (0.00-0.30); Basophils Percent Auto 0.4 % (0.0-3.0); Eosinophils Absolute Auto 0.06 K/uL (0.00-0.50); Eosinophils Percent Auto 0.6 % (0.0-7.0); Hematocrit 26.7 % (33.0-51.0); Hemoglobin* 8.6 gm/dL (12.0-16.0); Immature Granulocytes Abs Auto 0.04 K/uL (0.00-0.30); Immature Granulocytes Pct Auto 0.4 %; Lymphocytes Percent Auto 12.6 % (20-44); Mean Corpuscular HGB Conc 32 gm/dL (32-36); Mean Corpuscular Hemoglobin 29 pg (26-34); Mean Corpuscular Volume 91 fL (80-100); Monocytes Percent Auto 8.7 % (0.0-11.0); Neutrophils Percent Auto 77.3 % (42.0-72.0); Platelet Count* 209 K/uL (140-440); RDW Coefficient of Variation % 14.6 % (11.5-15.5); Red Blood Count 2.94 m/uL (4.00-5.20); White Blood Count* 10.07 K/uL (4.50-11.00)
[2024-03-18 11:32] LABS: Slide Review Reflex No
[2024-03-18 11:55] LABS: Albumin* 2.4 g/dL (3.3-5.0); Chloride* 109 mmol/L (96-114); Potassium* 3.8 mmol/L (3.6-5.1); Sodium* 136 mmol/L (135-149)
[2024-03-18 11:57] LABS: Creatinine* 2.2 mg/dL (0.5-1.5); Est. Creatinine Clearance* 19.38; Estimated Glomerular Filt Rate 22 ml/min
[2024-03-18 11:58] LABS: Anion Gap 7 mEq/L (7-15); Blood Urea Nitrogen* 52 mg/dL (7-30); Calcium* 9.5 mg/dL (8.4-10.6); Carbon Dioxide* 20 mmol/L (20-32); Glucose* 113 mg/dL (60-115); Magnesium* 1.3 mg/dL (1.5-2.6); Phosphorus* 4.7 mg/dL (2.5-4.5)
[2024-03-18 12:06] LABS: HCO3 VBG 22 mmol/L (21-28); PCO2 VBG 32 mmHG (40-50); pH VBG 7.432 (7.32-7.43)
[2024-03-18 12:29] LABS: Thyroid Stimulating Hormone* 0.205 uIU/mL (0.270-4.20)
[2024-03-18] MEDS: 0.9 % SODIUM CHLORIDE 500 ML 500 ML 250 ML IV (12:33)
--- NOTE | 2024-03-18 13:13 | PM.IMPN1 ---
Progress Note: A&P Assessment and plan (1) MARJORIE (acute kidney injury): Problem details: - likely prerenal - restarting IVF bolus, maintenance. Status: Acute (2) Anemia of chronic disease: Problem details: Hemoglobin 8.6, MCV 91. Other cell lines are normal. Order occult stool and PPI. Continue to monitor as I am not clear on the etiology. 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: Problem details: no imaging in this admission; I'm concerned for ongoing disease causing orthostasis; anemia; falls -will discuss timing of scans as she has an MARJORIE that makes us weight r/b/a to contast Status: Acute (4) Protein-calorie malnutrition, moderate: Problem details: 10kg weight loss since 01/03 Status: Acute (5) Chronic infection of left hip, currently on antibiotics: Problem details: - continue doxycycline but levo on hold given MARJORIE Status: Chronic (6) Hypomagnesemia: Problem details: -ordered for placement 2 g over 2 hours Status: Acute (7) Orthostatic hypotension: Problem details: - exacerbated by dehydration. Check daily orthostatic BPs. Continue midodrine Status: Chronic (8) Nephrolithiasis: Problem details: - sees urologist, planning procedure and stent removal this week Status: Acute (9) Ureteral stent present: Problem details: - sees urologist, planning procedure and stent removal this week Status: Acute (10) Poor appetite: Problem details: - intermittent, acute on chronic. Associated with nausea, vomiting, these are also not new. Not previously worked up, however. May benefit from further w/u with EGD or gastric emptying study. Status: Acute (11) CKD (chronic kidney disease), stage II: Problem details: baseline Cr 0.9-1 Status: Chronic (12) Weight loss: Problem details: - 01/02/24 wt 63.5kg, today 56.7kg, unintentional. Patient states she does not use Nutrional supplements because she hates milk and doesn't like the fruit flavored ones. Status: Acute Subjective Date Seen: 03/18/24 Interval history: Daily Progress Note - Hospital Medicine Day #: 2 CC: Acute kidney injury, weakness, 2 falls in last 2 days 24 HOUR UPDATE: She feels a bit better this morning. However is still very weak and having more exaggerated symptoms of her chronic orthostasis. Her CBC returned this morning with hemoglobin of 8.6. Creatinine is 2.2, down from 2.4 yesterday. BUN remains at 52. Electrolytes are stable. Her calcium came back at 9.5, ionized calcium is normal. Her magnesium is low at 1.3. Low albumin. Suppressed TSH. Notable Labs, Micro, Rads, Interventions: prerenal pattern in her labs; creatinine down some but likely needs more fluid hgb dropped down to 8.5 (likely anemia chronic disease, will check FOBT; give PPI) mag is low, albumin is low +RBC in bladder Objective: quiet but insightful. catchetic. Vitals: orthostatic noted this am with therapies. see above Lungs: Clear. Cardiac: S1S2. Is able to life left leg off the bed and right. has chronic back pain but does not feel injured from yesterday. Disposition/Potential discharge - either transfer to [facility]; TCU or back to her sister's Today I spent 50minutes seeing the patient, reviewing Expanse and EPIC notes/diagnostics, discussing the care plan with our care time that includes social work, PT/OT, pharmacy, RT, assisted and documenting my impressions and plan in the medical record. Exam Const: Vital Signs, click to edit/add: Vital Signs - 24 hr 03/17/24 16:41 03/17/24 16:53 03/17/24 17:00 Temperature 97.6 F Pulse Rate 83 79 Pulse Rate [Pulse Oximeter] Pulse Rate [Right Pulse Oximeter] 92 Pulse Rate [orthos tatic lying Pulse Oximeter] Pulse Rate [orthos tatic sitting Puls e Oximeter] Pulse Rate [orthos tatic sitting Righ t] Pulse Rate [orthos tatic standing Pul se Oximeter] Respiratory Rate 18 Blood Pressure Blood Pressure [Le ft Arm] Blood Pressure [Ri ght Upper Arm] 149/79 H Blood Pressure [or thostatic lying Le ft Arm] Blood Pressure [or thostatic lying Ri ght Arm] Blood Pressure [or thostatic sitting Left Arm] Blood Pressure [or thostatic sitting Right Arm] Blood Pressure [or thostatic sitting] Blood Pressure [or thostatic standing Left Arm] Pulse Oximetry 99 94 94 Oxygen Delivery Me thod Room Air 03/17/24 17:15 03/17/24 17:30 03/17/24 17:45 Temperature Pulse Rate 69 66 63 Pulse Rate [Pulse Oximeter] Pulse Rate [Right Pulse Oximeter] Pulse Rate [orthos tatic lying Pulse Oximeter] Pulse Rate [orthos tatic sitting Puls e Oximeter] Pulse Rate [orthos tatic sitting Righ t] Pulse Rate [orthos tatic standing Pul se Oximeter] Respiratory Rate Blood Pressure Blood Pressure [Le ft Arm] Blood Pressure [Ri ght Upper Arm] Blood Pressure [or thostatic lying Le ft Arm] Blood Pressure [or thostatic lying Ri ght Arm] Blood Pressure [or thostatic sitting Left Arm] Blood Pressure [or thostatic sitting Right Arm] Blood Pressure [or thostatic sitting] Blood Pressure [or thostatic standing Left Arm] Pulse Oximetry 98 98 99 Oxygen Delivery Me thod 03/17/24 18:00 03/17/24 18:15 03/17/24 18:30 Temperature Pulse Rate 64 63 60 Pulse Rate [Pulse Oximeter] Pulse Rate [Right Pulse Oximeter] Pulse Rate [orthos tatic lying Pulse Oximeter] Pulse Rate [orthos tatic sitting Puls e Oximeter] Pulse Rate [orthos tatic sitting Righ t] Pulse Rate [orthos tatic standing Pul se Oximeter] Respiratory Rate Blood Pressure Blood Pressure [Le ft Arm] Blood Pressure [Ri ght Upper Arm] Blood Pressure [or thostatic lying Le ft Arm] Blood Pressure [or thostatic lying Ri ght Arm] Blood Pressure [or thostatic sitting Left Arm] Blood Pressure [or thostatic sitting Right Arm] Blood Pressure [or thostatic sitting] Blood Pressure [or thostatic standing Left Arm] Pulse Oximetry 97 96 97 Oxygen Delivery Me thod 03/17/24 18:45 03/17/24 19:00 03/17/24 19:04 Temperature Pulse Rate 64 66 Pulse Rate [Pulse Oximeter] Pulse Rate [Right Pulse Oximeter] Pulse Rate [orthos tatic lying Pulse Oximeter] 68 Pulse Rate [orthos tatic sitting Puls e Oximeter] 71 Pulse Rate [orthos tatic sitting Righ t] Pulse Rate [orthos tatic standing Pul se Oximeter] 99 Respiratory Rate Blood Pressure Blood Pressure [Le ft Arm] Blood Pressure [Ri ght Upper Arm] Blood Pressure [or thostatic lying Le ft Arm] 155/77 H Blood Pressure [or thostatic lying Ri ght Arm] Blood Pressure [or thostatic sitting Left Arm] Blood Pressure [or thostatic sitting Right Arm] Blood Pressure [or thostatic sitting] 134/65 Blood Pressure [or thostatic standing Left Arm] 73/46 L Pulse Oximetry 98 97 Oxygen Delivery Az thod 03/17/24 19:15 03/17/24 19:29 03/17/24 19:30 Temperature Pulse Rate 63 69 75 Pulse Rate [Pulse Oximeter] Pulse Rate [Right Pulse Oximeter] Pulse Rate [orthos tatic lying Pulse Oximeter] Pulse Rate [orthos tatic sitting Puls e Oximeter] Pulse Rate [orthos tatic sitting Righ t] Pulse Rate [orthos tatic standing Pul se Oximeter] Respiratory Rate Blood Pressure 155/77 H Blood Pressure [Le ft Arm] Blood Pressure [Ri ght Upper Arm] Blood Pressure [or thostatic lying Le ft Arm] Blood Pressure [or thostatic lying Ri ght Arm] Blood Pressure [or thostatic sitting Left Arm] Blood Pressure [or thostatic sitting Right Arm] Blood Pressure [or thostatic sitting] Blood Pressure [or thostatic standing Left Arm] Pulse Oximetry 98 97 98 Oxygen Delivery Az thod 03/17/24 19:31 03/17/24 19:32 03/17/24 19:33 Temperature Pulse Rate 78 95 Pulse Rate [Pulse Oximeter] Pulse Rate [Right Pulse Oximeter] Pulse Rate [orthos tatic lying Pulse Oximeter] Pulse Rate [orthos tatic sitting Puls e Oximeter] Pulse Rate [orthos tatic sitting Righ t] Pulse Rate [orthos tatic standing Pul se Oximeter] Respiratory Rate Blood Pressure 134/65 73/46 L Blood Pressure [Le ft Arm] Blood Pressure [Ri ght Upper Arm] Blood Pressure [or thostatic lying Le ft Arm] Blood Pressure [or thostatic lying Ri ght Arm] Blood Pressure [or thostatic sitting Left Arm] Blood Pressure [or thostatic sitting Right Arm] Blood Pressure [or thostatic sitting] Blood Pressure [or thostatic standing Left Arm] Pulse Oximetry 97 100 Oxygen Delivery Az thod 03/17/24 19:45 03/17/24 20:00 03/17/24 20:15 Temperature Pulse Rate 79 68 74 Pulse Rate [Pulse Oximeter] Pulse Rate [Right Pulse Oximeter] Pulse Rate [orthos tatic lying Pulse Oximeter] Pulse Rate [orthos tatic sitting Puls e Oximeter] Pulse Rate [orthos tatic sitting Righ t] Pulse Rate [orthos tatic standing Pul se Oximeter] Respiratory Rate Blood Pressure Blood Pressure [Le ft Arm] Blood Pressure [Ri ght Upper Arm] Blood Pressure [or thostatic lying Le ft Arm] Blood Pressure [or thostatic lying Ri ght Arm] Blood Pressure [or thostatic sitting Left Arm] Blood Pressure [or thostatic sitting Right Arm] Blood Pressure [or thostatic sitting] Blood Pressure [or thostatic standing Left Arm] Pulse Oximetry 97 98 99 Oxygen Delivery Az thod 03/17/24 20:30 03/17/24 20:45 03/17/24 21:00 Temperature Pulse Rate 76 70 72 Pulse Rate [Pulse Oximeter] Pulse Rate [Right Pulse Oximeter] Pulse Rate [orthos tatic lying Pulse Oximeter] Pulse Rate [orthos tatic sitting Puls e Oximeter] Pulse Rate [orthos tatic sitting Righ t] Pulse Rate [orthos tatic standing Pul se Oximeter] Respiratory Rate Blood Pressure Blood Pressure [Le ft Arm] Blood Pressure [Ri ght Upper Arm] Blood Pressure [or thostatic lying Le ft Arm] Blood Pressure [or thostatic lying Ri ght Arm] Blood Pressure [or thostatic sitting Left Arm] Blood Pressure [or thostatic sitting Right Arm] Blood Pressure [or thostatic sitting] Blood Pressure [or thostatic standing Left Arm] Pulse Oximetry 98 98 100 Oxygen Delivery Az thod 03/17/24 21:15 03/17/24 21:30 03/18/24 01:26 Temperature 97.5 F L Pulse Rate 78 71 Pulse Rate [Pulse Oximeter] 71 Pulse Rate [Right Pulse Oximeter] Pulse Rate [orthos tatic lying Pulse Oximeter] Pulse Rate [orthos tatic sitting Puls e Oximeter] Pulse Rate [orthos tatic sitting Righ t] Pulse Rate [orthos tatic standing Pul se Oximeter] Respiratory Rate 16 Blood Pressure Blood Pressure [Le ft Arm] 154/68 H Blood Pressure [Ri ght Upper Arm] Blood Pressure [or thostatic lying Le ft Arm] Blood Pressure [or thostatic lying Ri ght Arm] Blood Pressure [or thostatic sitting Left Arm] Blood Pressure [or thostatic sitting Right Arm] Blood Pressure [or thostatic sitting] Blood Pressure [or thostatic standing Left Arm] Pulse Oximetry 99 97 99 Oxygen Delivery Me thod Room Air 03/18/24 01:46 03/18/24 02:23 03/18/24 07:00 Temperature Pulse Rate 77 82 Pulse Rate [Pulse Oximeter] Pulse Rate [Right Pulse Oximeter] Pulse Rate [orthos tatic lying Pulse Oximeter] Pulse Rate [orthos tatic sitting Puls e Oximeter] Pulse Rate [orthos tatic sitting Righ t] Pulse Rate [orthos tatic standing Pul se Oximeter] Respiratory Rate Blood Pressure Blood Pressure [Le ft Arm] Blood Pressure [Ri ght Upper Arm] Blood Pressure [or thostatic lying Le ft Arm] Blood Pressure [or thostatic lying Ri ght Arm] Blood Pressure [or thostatic sitting Left Arm] Blood Pressure [or thostatic sitting Right Arm] Blood Pressure [or thostatic sitting] Blood Pressure [or thostatic standing Left Arm] Pulse Oximetry 99 Oxygen Delivery Me thod Room Air 03/18/24 07:00 03/18/24 07:00 03/18/24 07:00 Temperature 97.5 F L Pulse Rate Pulse Rate [Pulse Oximeter] 86 Pulse Rate [Right Pulse Oximeter] Pulse Rate [orthos tatic lying Pulse Oximeter] 86 Pulse Rate [orthos tatic sitting Puls e Oximeter] 99 Pulse Rate [orthos tatic sitting Righ t] 90 Pulse Rate [orthos tatic standing Pul se Oximeter] 110 H Respiratory Rate 16 16 Blood Pressure Blood Pressure [Le ft Arm] Blood Pressure [Ri ght Upper Arm] Blood Pressure [or thostatic lying Le ft Arm] 155/77 H Blood Pressure [or thostatic lying Ri ght Arm] 133/56 L Blood Pressure [or thostatic sitting Left Arm] 117/59 L Blood Pressure [or thostatic sitting Right Arm] 89/60 L Blood Pressure [or thostatic sitting] 134/65 Blood Pressure [or thostatic standing Left Arm] 73/46 L Pulse Oximetry 96 96 Oxygen Delivery Me thod Room Air Room Air Labs Labs: Laboratory Results - last 24 hr 03/17/24 03/17/24 03/17/24 17:09 17:37 17:37 WBC 10.57 RBC 3.45 L Hgb 10.4 L Hct 31.6 L MCV 92 MCH 30 MCHC 33 RDW Coeff of Todd 14.6 Plt Count 278 Neut % (Auto) 81.4 H Lymph % (Auto) 9.4 L [place] % (Auto) 8.2 Eos % (Auto) 0.3 Baso % (Auto) 0.4 Neut # (Auto) 8.60 H Lymph # (Auto) 1.00 [place] # (Auto) 0.90 Eos # (Auto) 0.03 Baso # (Auto) 0.04 Abs Immat Gran (auto) 0.03 Imm/Tot Granulo (auto) 0.3 VBG pH VBG pCO2 VBG pO2 VBG HCO3 Sodium 137 Potassium 4.1 Chloride 106 Carbon Dioxide 22 Anion Gap 9 BUN 52 H Creatinine 2.4 H Estimated Creat Clear 17.29 Estimated GFR 20 Glucose 81 Lactate Calcium 10.8 H Ionized Calcium Brandi Phosphorus Magnesium Troponin I < 0.01 L Cancelled Albumin TSH SARS-CoV-2 (PCR) Negative SARS-CoV-2 Influenza Type A (PCR) Negative PCR FLU A Influenza Type B (PCR) Negative PCR FLU B RSV (PCR) Negative PCR RSV 03/18/24 11:17 WBC 10.07 RBC 2.94 L Hgb 8.6 L Hct 26.7 L MCV 91 MCH 29 MCHC 32 RDW Coeff of Todd 14.6 Plt Count 209 Neut % (Auto) 77.3 H Lymph % (Auto) 12.6 L [place] % (Auto) 8.7 Eos % (Auto) 0.6 Baso % (Auto) 0.4 Neut # (Auto) 7.80 H Lymph # (Auto) 1.30 [place] # (Auto) 0.90 Eos # (Auto) 0.06 Baso # (Auto) 0.04 Abs Immat Gran (auto) 0.04 Imm/Tot Granulo (auto) 0.4 VBG pH 7.432 H VBG pCO2 32 L VBG pO2 153.0 H VBG HCO3 22 Sodium 136 Potassium 3.8 Chloride 109 Carbon Dioxide 20 Anion Gap 7 BUN 52 H Creatinine 2.2 H Estimated Creat Clear 19.38 Estimated GFR 22 Glucose 113 Lactate 1.8 Calcium 9.5 Ionized Calcium Brandi 1.26 Phosphorus 4.7 H Magnesium 1.3 L Troponin I Albumin 2.4 L TSH 0.205 L SARS-CoV-2 (PCR) Influenza Type A (PCR) Influenza Type B (PCR) RSV (PCR)
[2024-03-18 13:47] LABS: Free T4 Free Thyroxine* 1.49 ng/dL (0.70-1.85)
--- NOTE | 2024-03-18 13:51 | PC.SOCIAL ---
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 Pt has been staying with her sister whom lives here in [place], but has an apartment in [place]. Pt is hoping to return to her apartment soon, but realizes she may need to go back to her sister's apartment at discharge from the hospital, resuming her [facility] and work on getting stronger. Social work to follow-up as needed.
[2024-03-18 14:09] LABS: Appearance Urine Clear (Clear); Bilirubin Urine Negative (Negative); Blood Urine 3+ (Negative); Color Urine Yellow (Yellow); Glucose Urine Negative (Negative); Ketones Urine Negative (Negative); Leukocyte Esterase Urine 1+ (Negative); Nitrite Urine Negative (Negative); Protein Urine 1+ (Negative); Urobilinogen Urine 0.2 (0.2-1.0)
[2024-03-18 14:43] LABS: Squamous Epithelial Cell Urine Few (None-Few)
[2024-03-18] MEDS: PANTOPRAZOLE SODIUM 40 MG INJ IVP (15:26)
[2024-03-18] MEDS: MAGNESIUM IV 2 GM/50 ML PIGGYBACK IVPB (15:26)
--- NOTE | 2024-03-18 16:39 | PC.NURSE ---
patient pleasant and cooperative. alert and oriented. able to sit at the side of the bed but unable to tolerate standing due to dizziness/lightheadedness/neck pain. recovers once lying back down. generalized chronic pain taking Tylenol for and declining need for more interventions. tolerating diet.
[2024-03-18] MEDS: MIDODRINE HCL 5 MG TABLET 2.5 MG PO (18:06)
[2024-03-18] MEDS: 0.9 % SODIUM CHLORIDE 1000 ml 1,000 ML 100 ML IV (20:32)
[2024-03-19 03:00] VITALS: BP 138/54; PULSE 71; RESP 18; TEMP 36.6; O2SAT 96
[2024-03-19] MEDS: LEVOTHYROXINE 75 MCG TABLET PO (06:29)
[2024-03-19] MEDS: 0.9 % SODIUM CHLORIDE 1000 ml 1,000 ML 100 ML IV ×2 (06:31→17:51)
[2024-03-19 06:55] LABS: HCO3 VBG 22 mmol/L (21-28); PCO2 VBG 39 mmHG (40-50); pH VBG 7.365 (7.32-7.43)
[2024-03-19 07:00] VITALS: BP 156/67; PULSE 66; PULSE 75; RESP 16; O2SAT 97
[2024-03-19 07:04] LABS: Basophils Absolute Auto 0.03 K/uL (0.00-0.30); Basophils Percent Auto 0.3 % (0.0-3.0); Eosinophils Absolute Auto 0.19 K/uL (0.00-0.50); Eosinophils Percent Auto 2.1 % (0.0-7.0); Hematocrit 25.4 % (33.0-51.0); Hemoglobin* 8.3 gm/dL (12.0-16.0); Immature Granulocytes Abs Auto 0.02 K/uL (0.00-0.30); Immature Granulocytes Pct Auto 0.2 %; Lymphocytes Percent Auto 19.7 % (20-44); Mean Corpuscular HGB Conc 33 gm/dL (32-36); Mean Corpuscular Hemoglobin 30 pg (26-34); Mean Corpuscular Volume 91 fL (80-100); Neutrophils Absolute Auto 5.98 K/uL (1.7-7.0); Neutrophils Percent Auto 67.7 % (42.0-72.0); Platelet Count* 211 K/uL (140-440); RDW Coefficient of Variation % 14.6 % (11.5-15.5); Red Blood Count 2.79 m/uL (4.00-5.20); Reticulocyte Hemoglobin Equivi 30.4 pg (29.0-35.0); Reticulocyte Percent 1.4 % (0.5-2.0); Reticulocytes Absolute 0.04 # (0.03-0.08); White Blood Count* 8.84 K/uL (4.50-11.00)
[2024-03-19 07:21] LABS: INR 1.01 (0.91-1.10); Prothrombin Time 13.9 Seconds
[2024-03-19 07:23] LABS: Slide Review Reflex No
[2024-03-19 07:27] LABS: Albumin* 2.2 g/dL (3.3-5.0)
[2024-03-19 07:28] LABS: Albumin* 2.2 g/dL (3.3-5.0); Chloride* 111 mmol/L (96-114); Sodium* 137 mmol/L (135-149)
[2024-03-19 07:29] LABS: Potassium* 3.8 mmol/L (3.6-5.1)
[2024-03-19 07:30] LABS: Bilirubin Direct* 0.4 mg/dL (0.0-0.5); Bilirubin Total* 0.4 mg/dL (0.1-1.5)
[2024-03-19 07:31] LABS: Alanine Aminotransferase* 19 U/L (4-35); Alkaline Phosphatase* 72 U/L (40-150); Anion Gap 5 mEq/L (7-15); Aspartate Amino Transferase* 30 U/L (12-35); Blood Urea Nitrogen* 57 mg/dL (7-30); Carbon Dioxide* 21 mmol/L (20-32); Est. Creatinine Clearance* 21.31; Estimated Glomerular Filt Rate 25 ml/min; Magnesium* 1.8 mg/dL (1.5-2.6); Total Protein* 4.5 g/dL (6.0-8.3)
[2024-03-19 07:32] LABS: Calcium* 9.1 mg/dL (8.4-10.6); Glucose* 86 mg/dL (60-115); Phosphorus* 4.9 mg/dL (2.5-4.5)
[2024-03-19 07:34] LABS: C Reactive Protein* 3.8 mg/dL (0.5-1.0)
[2024-03-19 07:36] LABS: Iron* 40 ug/dL (37-170)
[2024-03-19 07:45] LABS: Percent Iron Saturation 27 % (20-50); Total Iron Binding Capacity 146 ug/dL (265-497)
--- NOTE | 2024-03-19 08:20 | CRLHL7_ITS ---
For Patients: As a result of the Century Cures Act, medical imaging exams and procedure reports are released immediately into your electronic medical record. You may view this report before your referring provider. If you have questions, please contact your health care provider. INDICATION: Shortness of breath. TECHNIQUE: Chest 2 views. COMPARISON: None. FINDINGS: Cardiovascular and mediastinum: Heart size is normal. Unremarkable mediastinum. Lungs and pleural spaces: Lungs are clear. No sign of infiltrate or mass. No sign of pleural effusion. No pneumothorax. Bones and soft tissues: Chronic-appearing deformity the right humeral head, which appears to be anteriorly subluxed or dislocated. No acute findings. IMPRESSION: No acute findings. Dictated by Jairo Saldana MD @ 03/19/2024 9:13:04 AM (Electronically Signed)
--- NOTE | 2024-03-19 09:44 | P.IMPN_ITS ---
Progress Note: A&P Assessment and plan (1) MARJORIE (acute kidney injury): Problem details: -mixed picture of progressive CKD with prerenal pattern, continue fluids and following labs. Status: Acute (2) H/O obstructive nephropathy: Problem details: --followed by [facility] -01/03/24 had renal stent placed - due for removal 03/20 (DR ANDREA) -put a call into that team on 03/19 - awaiting call back - could we do an up and back? Dior has been giving me updates. -suspect this procedure will be cancelled/postponed - she will transition to TCU and then make f/u appts from there. Status: Acute (3) Ureteral stent present: Problem details: -placed 01/03/24 - I have been on the phone with Dior and [facility] - we are aiming to transfer her to complete this. If not possible and it must be rescheduled - go to TCU in [facility] and scheduled from there. -The only thing that might change this is if she has a new obstructive stone. no pain to suggest and I haven't checked an CT ABD/Pelvis b/c of renal function - could do without contrast or if renal function allows 04/20 - then I would not send her to TCU but to [facility] (she prefers [facility]) to get procedure. Status: Acute (4) Orthostatic hypotension: Problem details: - exacerbated by dehydration. Check daily orthostatic BPs. Continue midodrine - I see in Dior she had a morning cortisol level was checked. 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 Other cell lines are normal. Order occult stool and PPI. Continue to monitor as I am not clear on the etiology. Very possibly this is anemia of chronic disease (CKD, chronic infection, malnutrition) Status: Acute (7) Hypomagnesemia: Problem details: -ordered for placement 2 g over 2 hours -03/19 low normal Status: Acute (8) Protein-calorie malnutrition, moderate: Problem details: 10kg weight loss since 01/03 Status: Acute (9) Poor appetite: Problem details: - intermittent, acute on chronic. Associated with nausea, vomiting, these are also not new. Not previously worked up, however. May benefit from further w/u with EGD or gastric emptying study. 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 Status: Acute (12) Weight loss: Problem details: - 01/02/24 wt 63.5kg, today 56.7kg, unintentional. Patient states she does not use Nutrional supplements because she hates milk and doesn't like the fruit flavored ones. Status: Acute Subjective Date Seen: 03/19/24 Interval history: Daily Progress Note - Hospital Medicine Day #: 3 CC: Acute kidney injury, weakness, 2 falls in last 2 days, presence of renal stent for obstructing nephrolithiasis 24 HOUR UPDATE: She feels a bit better this morning. However is still very weak and having more exaggerated symptoms of her chronic orthostasis. Her CBC returned this morning with hemoglobin of 8.6 - 8.3. Her retake count is 30.4, % reticulocyte % is 1.4. Iron level is low normal. Her ferritin is 81. Her TIBC is low at 146. Creatinine is down to 2.0, down from 2.4 at admission. BUN remains elevated in the 50s. Electrolytes are stable. Her calcium came back at 9.5, ionized calcium is normal. Her magnesium is low at 1.3. Low albumin. Suppressed TSH. Within normal T4. We replaced her magnesium. Notable Labs, Micro, Rads, Interventions: prerenal pattern in her labs; creatinine down some but likely needs more fluid hgb dropped down to 8.5 (likely anemia chronic disease, will check FOBT; give PPI and check other anemia labs.) mag is low, albumin is low +RBC in bladder (known nephrolithiasis and stent placement) Objective: quiet but insightful. cachectic. Vitals: orthostatic noted this am with therapies. see above Lungs: Clear. Cardiac: S1S2. Disposition/Potential discharge - There are no beds at [place]. I likely will need to touch base with [facility], Dr. Andrea, and cancel tomorrow's procedure. Her stent was originally placed in December 2023 at [place]. She will likely go to TCU in [place]. She has asked for [facility] or [facility]. That info was passed on to social work. I feel that she can no longer live independently. That she should pursue assisted living. Today I spent 50minutes seeing the patient, reviewing [facility]panse and EPIC notes/diagnostics, discussing the care plan with our care time that includes social work, PT/OT, pharmacy, RT, prison and documenting my impressions and plan in the medical record. Exam Const: Vital Signs, click to edit/add: Vital Signs - 24 hr 03/18/24 11:00 03/18/24 15:00 03/18/24 15:00 Temperature 97.6 F 97.6 F Pulse Rate Pulse Rate [Pulse Oximeter] 73 74 Pulse Rate [orthos tatic lying Pulse Oximeter] Pulse Rate [orthos tatic sitting Puls e Oximeter] Pulse Rate [orthos tatic standing Pul se Oximeter] Respiratory Rate 16 16 16 Blood Pressure [Le ft Arm] 149/68 H Blood Pressure [or thostatic lying Ri ght Arm] Blood Pressure [or thostatic sitting Right Arm] Blood Pressure [or thostatic standing Right Arm] Pulse Oximetry 97 97 97 Oxygen Delivery Me thod Room Air Room Air Room Air 03/18/24 15:00 03/18/24 15:00 03/18/24 20:00 Temperature 97.3 F L Pulse Rate 68 Pulse Rate [Pulse Oximeter] 71 Pulse Rate [orthos tatic lying Pulse Oximeter] 74 Pulse Rate [orthos tatic sitting Puls e Oximeter] 84 Pulse Rate [orthos tatic standing Pul se Oximeter] 98 Respiratory Rate 16 Blood Pressure [Le ft Arm] 152/67 H Blood Pressure [or thostatic lying Ri ght Arm] 143/64 H Blood Pressure [or thostatic sitting Right Arm] 120/69 Blood Pressure [or thostatic standing Right Arm] 84/52 L Pulse Oximetry 97 Oxygen Delivery Me thod Room Air 03/18/24 22:25 03/18/24 22:28 03/18/24 23:00 Temperature 97.5 F L Pulse Rate 75 Pulse Rate [Pulse Oximeter] 73 Pulse Rate [orthos tatic lying Pulse Oximeter] Pulse Rate [orthos tatic sitting Puls e Oximeter] Pulse Rate [orthos tatic standing Pul se Oximeter] Respiratory Rate 16 16 Blood Pressure [Le ft Arm] 162/82 H Blood Pressure [or thostatic lying Ri ght Arm] Blood Pressure [or thostatic sitting Right Arm] Blood Pressure [or thostatic standing Right Arm] Pulse Oximetry 98 97 Oxygen Delivery Me thod Room Air Room Air 03/19/24 03:00 03/19/24 07:00 03/19/24 07:00 Temperature 97.9 F Pulse Rate Pulse Rate [Pulse Oximeter] 71 75 Pulse Rate [orthos tatic lying Pulse Oximeter] Pulse Rate [orthos tatic sitting Puls e Oximeter] Pulse Rate [orthos tatic standing Pul se Oximeter] Respiratory Rate 18 16 16 Blood Pressure [Le ft Arm] 138/54 L 156/67 H Blood Pressure [or thostatic lying Ri ght Arm] Blood Pressure [or thostatic sitting Right Arm] Blood Pressure [or thostatic standing Right Arm] Pulse Oximetry 96 97 97 Oxygen Delivery Me thod Room Air Room Air Room Air Labs Labs: Laboratory Results - last 24 hr 03/18/24 03/18/24 03/18/24 11:17 13:10 13:40 WBC 10.07 RBC 2.94 L Hgb 8.6 L Hct 26.7 L MCV 91 MCH 29 MCHC 32 RDW Coeff of Todd 14.6 Plt Count 209 Neut % (Auto) 77.3 H Lymph % (Auto) 12.6 L [place] % (Auto) 8.7 Eos % (Auto) 0.6 Baso % (Auto) 0.4 Neut # (Auto) 7.80 H Lymph # (Auto) 1.30 [place] # (Auto) 0.90 Eos # (Auto) 0.06 Baso # (Auto) 0.04 Abs Immat Gran (auto) 0.04 Imm/Tot Granulo (auto) 0.4 Absolute Retic Percent Retic Immature Retic Fraction Retic Hgb Equivalent INR VBG pH 7.432 H VBG pCO2 32 L VBG pO2 153.0 H VBG HCO3 22 Sodium 136 Potassium 3.8 Chloride 109 Carbon Dioxide 20 Anion Gap 7 BUN 52 H Creatinine 2.2 H Estimated Creat Clear 19.38 Estimated GFR 22 Glucose 113 Lactate 1.8 Calcium 9.5 Ionized Calcium Brandi 1.26 Phosphorus 4.7 H Magnesium 1.3 L Iron TIBC % Saturation Ferritin Total Bilirubin Direct Bilirubin AST ALT Alkaline Phosphatase C-Reactive Protein Total Protein Albumin 2.4 L TSH 0.205 L Free T4 1.49 Urine Color Yellow Urine Appearance Clear Urine pH 5.0 Ur Specific [place] 1.020 Urine Protein 1+ A Urine Glucose (UA) Negative Urine Ketones Negative Urine Blood 3+ A Urine Nitrite Negative Urine Bilirubin Negative Urine Urobilinogen 0.2 Ur Leukocyte Esterase 1+ A Urine RBC 5-10 A Urine WBC 2-5 Ur Squamous Epith Cells Few Urine Bacteria None Lab Acknowledgement Test Added 03/19/24 03/19/24 06:23 06:23 WBC 8.84 RBC 2.79 L Hgb 8.3 L Hct 25.4 L MCV 91 MCH 30 MCHC 33 RDW Coeff of Todd 14.6 Plt Count 211 Neut % (Auto) 67.7 Lymph % (Auto) 19.7 L [place] % (Auto) 10.0 Eos % (Auto) 2.1 Baso % (Auto) 0.3 Neut # (Auto) 5.98 Lymph # (Auto) 1.70 [place] # (Auto) 0.90 Eos # (Auto) 0.19 Baso # (Auto) 0.03 Abs Immat Gran (auto) 0.02 Imm/Tot Granulo (auto) 0.2 Absolute Retic 0.04 Percent Retic 1.4 Immature Retic Fraction 15.0 Retic Hgb Equivalent 30.4 INR 1.01 VBG pH 7.365 VBG pCO2 39 L VBG pO2 38.0 VBG HCO3 22 Sodium 137 Potassium 3.8 Chloride 111 Carbon Dioxide 21 Anion Gap 5 L BUN 57 H Creatinine 2.0 H Estimated Creat Clear 21.31 Estimated GFR 25 Glucose 86 Lactate Calcium 9.1 Ionized Calcium Brandi Phosphorus 4.9 H Magnesium 1.8 Iron 40 TIBC 146 L % Saturation 27 Ferritin 81.0 Total Bilirubin 0.4 Direct Bilirubin 0.4 AST 30 ALT 19 Alkaline Phosphatase 72 C-Reactive Protein 3.8 H Total Protein 4.5 L Albumin 2.2 L 2.2 L TSH Free T4 Urine Color Urine Appearance Urine pH Ur Specific [place] Urine Protein Urine Glucose (UA) Urine Ketones Urine Blood Urine Nitrite Urine Bilirubin Urine Urobilinogen Ur Leukocyte Esterase Urine RBC Urine WBC Ur Squamous Epith Cells Urine Bacteria Lab Acknowledgement
[2024-03-19] MEDS: ACETAMINOPHEN 500 MG TABLET 1000 MG PO ×2 (09:47→21:15)
[2024-03-19] MEDS: MIDODRINE HCL 5 MG TABLET PO ×2 (09:47→13:49)
[2024-03-19] MEDS: DOXYCYCLINE HYCLATE 100 MG PO ×2 (09:47→21:14)
[2024-03-19] MEDS: FERROUS SULFATE 325 MG TABLET PO (09:48)
--- NOTE | 2024-03-19 10:49 | PC.SOCIAL ---
Addendum entered by YFN Rasheed 03/19/24 16:34: Discharge planning: milk house worker did receive a message back from [facility] and they stated they may have a bed open on Monday of this week. Admissions call back phone number is #[phone] and their fax number is #[phone]. Pt would like to see if she will be accepted at [facility]. Social work to follow-up as needed. Addendum entered by YFN Rasheed 03/19/24 14:44: Discharge planning: milk house worker spoke to Claudia in Admissions at [facility] #[phone] this afternoon and she shared that she received the referral for the pt and she would have an answer on whether or not they can accept the pt by the end of the day. Claudia did mention that the pt was just at their facility from 01/13/24-02/13/24 and she was not sure if the pt's insurance would pay for another rehab stay again. She said most insurances require at least 60 days to pass before they pay for another short-term rehab stay. Claudia said that this would mean the pt would have to pay a co-pay to their facility, which could be up to $214.00 a day; however, Claudia shared that she was not sure if this would happen, she just wanted the pt to have a heads up incase it did happen. milk house worker will share this with the pt this afternoon. Social work to follow-up as needed. Addendum entered by YFN Rasheed 03/19/24 13:24: Discharge planning: milk house worker left a message with Admissions at [facility] #[phone] inquiring about female TCU bed availability. Social work to follow-up as needed. Addendum entered by YFN Rasheed 03/19/24 12:56: Discharge planning: Pt will need a TCU at discharge. Discharge will most likely be on . Called [facility] #[phone] and left a message with Admissions inquiring about bed availability in their TCU. The left their fax number on the voice message, so this worker did fax a referral for the pt to their fax at #[phone]. milk house worker will await a call back. Social work to follow-up as needed. Original Note: Discharge planning: Met with pt to discuss discharge planning. Pt shared that if she is recommended to go to a SNF at discharge, she would like to go to [facility] or [facility], both in [place], as she has been to both before in the past and liked both of them. milk house worker will check-in with these facilities today to see if they have bed availability. It is still unknown if a SNF will be needed at discharge or if pt can return to her sister's house with home care, but this worker will just do some checking on bed availability at those facilities. Social work to follow-up as needed.
[2024-03-19 11:00] VITALS: BP 110/54; BP 135/65; BP 164/63; PULSE 72; PULSE 75; PULSE 95
[2024-03-19 11:42] LABS: Fecal Occult Blood* Positive (Negative)
--- NOTE | 2024-03-19 14:46 | CRLHL7_ITS ---
For Patients: As a result of the Century Cures Act, medical imaging exams and procedure reports are released immediately into your electronic medical record. You may view this report before your referring provider. If you have questions, please contact your health care provider. INDICATION: COORDINATING REMOVAL OF STENT AND LITHOTRIPSY BASED ON ACUITY. NOTING IF THERE IS HYDRO WOULD BE HELPFUL. TECHNIQUE: CT abdomen and pelvis without contrast. COMPARISON: CT abdomen pelvis dated 01/02/2024. FINDINGS: Lower chest: Unremarkable. Noncontrast technique limits solid organ evaluation. Liver: Normal in size and attenuation. No suspicious masses. Gallbladder and bile ducts: Cholelithiasis. No biliary dilatation. Pancreas: Unremarkable. No mass or inflammation. Spleen: Normal in size. No masses. Adrenal glands: Normal in size. No nodules. Kidneys, ureters, and bladder: Right nephroureteral stent in place with pigtails in the right extrarenal pelvis and in the left aspect of the bladder. Moderate right hydroureteronephrosis. New 4 x 3 x 2 mm calculus in the left distal ureter with upstream moderate hydroureteronephrosis and new ill-defined hyperdensity in the dependent left renal pelvis. Nonobstructive 4 mm right lower pole renal calculus. Nonobstructive 7 mm left lower pole renal calculus. GI tract: Unremarkable. Normal in caliber. No sign of mass or inflammation. Normal appendix. Vasculature: Abdominal aorta is normal in caliber. Lymph nodes: No lymphadenopathy. Peritoneum/Abdominal Wall: Diffuse body wall edema. No sign of mass or infiltration. No free air or significant free fluid. Pelvis: Evaluation is limited due to artifact from the left total hip arthroplasty. No evident acute abnormalities. Bones: Unchanged L1 inferior endplate compression deformity. Left total hip arthroplasty with a partially redemonstrated large fluid collection extending from the region of the hip joint, posterolaterally into the proximal thigh soft tissues, measuring at least 6.5 cm in transaxial extent. No discretely visualized periprosthetic osteolysis IMPRESSION: 1. Right nephroureteral stent in place with moderate right hydroureteronephrosis. 2. New 4 mm calculus in the left distal ureter with upstream moderate hydroureteronephrosis. There is also new ill-defined hyperdensity in the dependent left renal pelvis, which may reflect blood products. 3. Left total hip arthroplasty with a partially redemonstrated large fluid collection extending from the region of the hip joint into the adjacent soft tissues, measuring at least 6.5 cm. No discrete periprosthetic osteolysis to indicate particle disease, though hardware associated artifact slightly limits evaluation. The sterility of this collection is indeterminate by imaging. Please note that all CT scans at this facility use dose modulation, iterative reconstruction, and/or weight-based dosing when appropriate to reduce radiation dose to as low as reasonably achievable. Dictated by Jairo Saldana MD @ 03/19/2024 3:58:52 PM (Electronically Signed)
[2024-03-19 15:00] VITALS: BP 171/62; PULSE 62; PULSE 64; RESP 16; TEMP 36.4; O2SAT 98
[2024-03-19] MEDS: MIDODRINE HCL 5 MG TABLET 2.5 MG PO (17:51)
[2024-03-19 19:00] VITALS: BP 176/77; PULSE 62; RESP 16; TEMP 36.4; O2SAT 99
[2024-03-19] MEDS: GABAPENTIN 100 MG CAPSULE 300 MG PO (21:14)
[2024-03-19] MEDS: diphenhydrAMINE 25 MG CAPSULE PO (21:15)
--- NOTE | 2024-03-19 22:50 | W.PM.CROSSCO ---
Subjective Subjective Interval history: 03/19/[address] abd and pelvis, which is worse than it was in December. I called [facility] and asked to speak with urology to update them. Call center nurse took the info and paged out the urologist. I did not get to speak with the urologist. The call center told me that the patient is now #2 on their waitlist for transfer there. Ordering Physician: Alejandra Camarillo M.D. Date of Service: 03/19/24 Procedure(s): CT abdomen pelvis wo con Accession Number(s): [id number] cc: Alejandra Camarillo M.D.; Provider,Not a Local~ For Patients: As a result of the Century Cures Act, medical imaging exams and procedure reports are released immediately into your electronic medical record. You may view this report before your referring provider. If you have questions, please contact your health care provider. INDICATION: COORDINATING REMOVAL OF STENT AND LITHOTRIPSY BASED ON ACUITY. NOTING IF THERE IS HYDRO WOULD BE HELPFUL. TECHNIQUE: CT abdomen and pelvis without contrast. COMPARISON: CT abdomen pelvis dated 01/02/2024. FINDINGS: Lower chest: Unremarkable. Noncontrast technique limits solid organ evaluation. Liver: Normal in size and attenuation. No suspicious masses. Gallbladder and bile ducts: Cholelithiasis. No biliary dilatation. Pancreas: Unremarkable. No mass or inflammation. Spleen: Normal in size. No masses. Adrenal glands: Normal in size. No nodules. Kidneys, ureters, and bladder: Right nephroureteral stent in place with pigtails in the right extrarenal pelvis and in the left aspect of the bladder. Moderate right hydroureteronephrosis. New 4 x 3 x 2 mm calculus in the left distal ureter with upstream moderate hydroureteronephrosis and new ill-defined hyperdensity in the dependent left renal pelvis. Nonobstructive 4 mm right lower pole renal calculus. Nonobstructive 7 mm left lower pole renal calculus. GI tract: Unremarkable. Normal in caliber. No sign of mass or inflammation. Normal appendix. Vasculature: Abdominal aorta is normal in caliber. Lymph nodes: No lymphadenopathy. Peritoneum/Abdominal Wall: Diffuse body wall edema. No sign of mass or infiltration. No free air or significant free fluid. Pelvis: Evaluation is limited due to artifact from the left total hip arthroplasty. No evident acute abnormalities. Bones: Unchanged L1 inferior endplate compression deformity. Left total hip arthroplasty with a partially redemonstrated large fluid collection extending from the region of the hip joint, posterolaterally into the proximal thigh soft tissues, measuring at least 6.5 cm in transaxial extent. No discretely visualized periprosthetic osteolysis IMPRESSION: 1. Right nephroureteral stent in place with moderate right hydroureteronephrosis. 2. New 4 mm calculus in the left distal ureter with upstream moderate hydroureteronephrosis. There is also new ill-defined hyperdensity in the dependent left renal pelvis, which may reflect blood products. 3. Left total hip arthroplasty with a partially redemonstrated large fluid collection extending from the region of the hip joint into the adjacent soft tissues, measuring at least 6.5 cm. No discrete periprosthetic osteolysis to indicate particle disease, though hardware associated artifact slightly limits evaluation. The sterility of this collection is indeterminate by imaging. Please note that all CT scans at this facility use dose modulation, iterative reconstruction, and/or weight-based dosing when appropriate to reduce radiation dose to as low as reasonably achievable. Dictated by Jairo Saldana MD @ 03/19/2024 3:58:52 PM (Electronically Signed)
[2024-03-19 23:00] VITALS: BP 145/56; PULSE 65; RESP 20; TEMP 36.4; O2SAT 97
--- NOTE | 2024-03-19 23:32 | PC.NURSE ---
Shift note: Pt A&O. VSS on RA with exception of HTN while laying flat, MD aware, no new orders received. Tele SA. Denies pain, SOB, CP, and N/V. Purewick in place.
[2024-03-20 02:57] VITALS: BP 146/63; PULSE 68; RESP 17; TEMP 36.4; O2SAT 96
[2024-03-20] MEDS: 0.9 % SODIUM CHLORIDE 1000 ml 1,000 ML 100 ML IV (03:05)
[2024-03-20 03:25] VITALS: PULSE 60
[2024-03-20] MEDS: LEVOTHYROXINE 75 MCG TABLET PO (06:20)
[2024-03-20 06:48] LABS: HCO3 VBG 20 mmol/L (21-28); PCO2 VBG 35 mmHG (40-50)
[2024-03-20 06:50] LABS: Basophils Absolute Auto 0.04 K/uL (0.00-0.30); Basophils Percent Auto 0.4 % (0.0-3.0); Eosinophils Absolute Auto 0.29 K/uL (0.00-0.50); Eosinophils Percent Auto 3.1 % (0.0-7.0); Hematocrit 24.9 % (33.0-51.0); Hemoglobin* 8.1 gm/dL (12.0-16.0); Immature Granulocytes Abs Auto 0.02 K/uL (0.00-0.30); Immature Granulocytes Pct Auto 0.2 %; Lymphocytes Percent Auto 15.2 % (20-44); Mean Corpuscular HGB Conc 33 gm/dL (32-36); Mean Corpuscular Hemoglobin 30 pg (26-34); Mean Corpuscular Volume 91 fL (80-100); Monocytes Percent Auto 8.5 % (0.0-11.0); Neutrophils Percent Auto 72.6 % (42.0-72.0); Platelet Count* 195 K/uL (140-440); RDW Coefficient of Variation % 14.5 % (11.5-15.5); Red Blood Count 2.73 m/uL (4.00-5.20); White Blood Count* 9.24 K/uL (4.50-11.00)
[2024-03-20 06:56] LABS: Slide Review Reflex No
[2024-03-20 07:09] LABS: Chloride* 114 mmol/L (96-114); Potassium* 4.2 mmol/L (3.6-5.1); Sodium* 137 mmol/L (135-149)
[2024-03-20 07:12] LABS: Creatinine* 1.6 mg/dL (0.5-1.5); Est. Creatinine Clearance* 27.13; Estimated Glomerular Filt Rate 33 ml/min
[2024-03-20 07:13] LABS: Anion Gap 3 mEq/L (7-15); Blood Urea Nitrogen* 52 mg/dL (7-30); Calcium* 8.2 mg/dL (8.4-10.6); Carbon Dioxide* 20 mmol/L (20-32); Glucose* 73 mg/dL (60-115); Magnesium* 1.4 mg/dL (1.5-2.6); Phosphorus* 4.1 mg/dL (2.5-4.5)
[2024-03-20 07:16] LABS: C Reactive Protein* 3.3 mg/dL (0.5-1.0)
[2024-03-20] MEDS: MIDODRINE HCL 5 MG TABLET PO (07:59)
[2024-03-20 08:09] VITALS: BP 129/61; PULSE 66; RESP 18; TEMP 36.7; O2SAT 97
--- NOTE | 2024-03-20 08:21 | PM.DS1 ---
DS: Providers Provider Date Seen: 03/20/24 Date of admission: 03/18/24 16:59 Primary care physician: Not a Local Provider Admitting Clinician: Rajni Alex MD Consults: 03/18/24 00:38 Consult to Nutrition [CONS] Routine Comment: Reason for consult:: Weight Loss Consult to Occupational Therapy [CONS] Routine Comment: Reason(s) for OT Consult:: Evaluate and Treat Any Restrictions?:: No Restrictions Consult to Physical Therapy [CONS] Routine Comment: Reason(s) for PT Consult:: Evaluate and Treat Any Restrictions?:: No Restrictions 03/18/24 01:45 Consult to Patient Transport Orderly [CONS] Routine Comment: Reason for Consult:: Discharge Planning Needs Attending Physician on discharge: MD Radha Briceño, [facility], PA-C [facility] Date of Discharge: 03/20/24 DS: Diagnosis Discharge Diagnosis (1) MARJORIE (acute kidney injury): Status: Acute Problem details: -mixed picture of progressive CKD with prerenal pattern, continue fluids and following labs. Creatinine 1.6 on day of transfer, previously 2.4 on admission. GFR 33, estimated creatinine clearance 27.13, BUN 52 (2) H/O obstructive nephropathy: Status: Acute Problem details: --followed by [facility] -01/03/24 had renal stent placed - due for removal 03/20 (DR ANDREA) -put a call into that team on 03/19 - accepted for transfer on 03/20/[address] Andrea, Urology. Patient will remain at [facility] for postoperative cares CT 03/19/2024 showing Right nephroureteral stent in place with moderate right hydroureteronephrosis. New 4 mm calculus in the left distal ureter with upstream moderate hydroureteronephrosis. There is also new ill-defined hyperdensity in the dependent left renal pelvis, which may reflect blood products (3) Ureteral stent present: Status: Acute Problem details: -placed 01/03/24 - I have been on the phone with [facility] - we are aiming to transfer her to complete this. If not possible and it must be rescheduled - go to TCU in [facility] and scheduled from there. Repeat CT 03/19/24 shows Lower chest: Unremarkable. Noncontrast technique limits solid organ evaluation. Liver: Normal in size and attenuation. No suspicious masses. Gallbladder and bile ducts: Cholelithiasis. No biliary dilatation. Pancreas: Unremarkable. No mass or inflammation. Spleen: Normal in size. No masses. Adrenal glands: Normal in size. No nodules. Kidneys, ureters, and bladder: Right nephroureteral stent in place with pigtails in the right extrarenal pelvis and in the left aspect of the bladder. Moderate right hydroureteronephrosis. New 4 x 3 x 2 mm calculus in the left distal ureter with upstream moderate hydroureteronephrosis and new ill-defined hyperdensity in the dependent left renal pelvis. Nonobstructive 4 mm right lower pole renal calculus. Nonobstructive 7 mm left lower pole renal calculus. GI tract: Unremarkable. Normal in caliber. No sign of mass or inflammation. Normal appendix. Vasculature: Abdominal aorta is normal in caliber. Lymph nodes: No lymphadenopathy. Peritoneum/Abdominal Wall: Diffuse body wall edema. No sign of mass or infiltration. No free air or significant free fluid. Pelvis: Evaluation is limited due to artifact from the left total hip arthroplasty. No evident acute abnormalities. Bones: Unchanged L1 inferior endplate compression deformity. Left total hip arthroplasty with a partially redemonstrated large fluid collection extending from the region of the hip joint, posterolaterally into the proximal thigh soft tissues, measuring at least 6.5 cm in transaxial extent. No discretely visualized periprosthetic osteolysis IMPRESSION: 1. Right nephroureteral stent in place with moderate right hydroureteronephrosis. 2. New 4 mm calculus in the left distal ureter with upstream moderate hydroureteronephrosis. There is also new ill-defined hyperdensity in the dependent left renal pelvis, which may reflect blood products. 3. Left total hip arthroplasty with a partially redemonstrated large fluid collection extending from the region of the hip joint into the adjacent soft tissues, measuring at least 6.5 cm. No discrete periprosthetic osteolysis to indicate particle disease, though hardware associated artifact slightly limits evaluation. The sterility of this collection is indeterminate by imaging. (4) Orthostatic hypotension: Status: Chronic Problem details: - exacerbated by dehydration. Check daily orthostatic BPs. Continue midodrine - I see in [facility] she had a morning cortisol level was checked. 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 No discrete periprosthetic osteolysis to indicate particle disease, though hardware associated artifact slightly limits evaluation. The sterility of this collection is indeterminate by imaging. (6) Anemia of chronic disease: Status: Acute Problem details: Hemoglobin 8.4. Other cell lines are normal. Order occult stool and PPI. Continue to monitor as I am not clear on the etiology. Very possibly this is anemia of chronic disease (CKD, chronic infection, malnutrition) Hemoglobin 8.1 on morning of transfer, 03/20/2024 (7) Hypomagnesemia: Status: Acute Problem details: -ordered for placement 2 g over 2 hours 1.4 on 03/20/2024 (8) Protein-calorie malnutrition, moderate: Status: Acute Problem details: 10kg weight loss since 01/03 (9) Poor appetite: Status: Acute Problem details: - intermittent, acute on chronic. Associated with nausea, vomiting, these are also not new. Not previously worked up, however. May benefit from further w/u with EGD or gastric emptying study. 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 (12) Weight loss: Status: Acute Problem details: - 01/02/24 wt 63.5kg, today 56.7kg, unintentional. Patient states she does not use Nutrional supplements because she hates milk and doesn't like the fruit flavored ones. DS: Summary Hospital Course Hospital Course: Patient is transferred to [facility] on 03/20/2024, to PreOp area, accepting is Dr. Andrea, Urology. Patient will remain at [facility] post operatively for remainder of cares. Course of care and details as noted above. Status at Discharge Overall status at discharge: patient is not back to baseline Time Spent with Patient Time attestation: Total time spent providing and/or coordinating discharge services: Time spent: Greater than 30 minutes Exam Narrative: Exam Narrative: PHYSICAL EXAM General: Pleasant, conversant, NAD Cardiovascular: RRR Pulmonary: No dyspnea Neurological: Alert, answering questions appropriately Skin: Warm, dry. Const: Vital Signs, click to edit/add: Vital Signs - 24 hr 03/19/24 11:00 03/19/24 15:00 03/19/24 15:00 Temperature Pulse Rate Pulse Rate [Pulse Oximeter] Pulse Rate [orthos tatic lying Pulse Oximeter] 75 Pulse Rate [orthos tatic sitting Puls e Oximeter] 72 Pulse Rate [orthos tatic standing Pul se Oximeter] 95 Respiratory Rate 16 16 Blood Pressure [Le ft Arm] Blood Pressure [or thostatic lying Le ft Arm] 164/63 H Blood Pressure [or thostatic sitting Left Arm] 135/65 Blood Pressure [or thostatic standing Left Arm] 110/54 L Pulse Oximetry 98 Oxygen Delivery Me thod Room Air 03/19/24 15:00 03/19/24 15:00 03/19/24 19:00 Temperature 97.6 F 97.5 F L Pulse Rate 64 Pulse Rate [Pulse Oximeter] 62 62 Pulse Rate [orthos tatic lying Pulse Oximeter] Pulse Rate [orthos tatic sitting Puls e Oximeter] Pulse Rate [orthos tatic standing Pul se Oximeter] Respiratory Rate 16 16 Blood Pressure [Le ft Arm] 171/62 H 176/77 H Blood Pressure [or thostatic lying Le ft Arm] Blood Pressure [or thostatic sitting Left Arm] Blood Pressure [or thostatic standing Left Arm] Pulse Oximetry 98 99 Oxygen Delivery Me thod Room Air Room Air 03/19/24 23:00 03/19/24 23:00 03/20/24 02:57 Temperature 97.5 F L 97.6 F Pulse Rate Pulse Rate [Pulse Oximeter] 65 68 Pulse Rate [orthos tatic lying Pulse Oximeter] Pulse Rate [orthos tatic sitting Puls e Oximeter] Pulse Rate [orthos tatic standing Pul se Oximeter] Respiratory Rate 20 20 17 Blood Pressure [Le ft Arm] 145/56 H 146/63 H Blood Pressure [or thostatic lying Le ft Arm] Blood Pressure [or thostatic sitting Left Arm] Blood Pressure [or thostatic standing Left Arm] Pulse Oximetry 97 97 96 Oxygen Delivery Me thod Room Air Room Air Room Air 03/20/24 03:25 03/20/24 08:09 Temperature 98.0 F Pulse Rate 60 Pulse Rate [Pulse Oximeter] 66 Pulse Rate [orthos tatic lying Pulse Oximeter] Pulse Rate [orthos tatic sitting Puls e Oximeter] Pulse Rate [orthos tatic standing Pul se Oximeter] Respiratory Rate 18 Blood Pressure [Le ft Arm] 129/61 Blood Pressure [or thostatic lying Le ft Arm] Blood Pressure [or thostatic sitting Left Arm] Blood Pressure [or thostatic standing Left Arm] Pulse Oximetry 97 Oxygen Delivery Me thod Room Air DS: Data Data Completed and Pending Labs on day of discharge: Labs from last 24 hours 03/20/24 03/19/24 03/19/24 06:15 11:25 06:23 WBC 9.24 RBC 2.73 L Hgb 8.1 L Hct 24.9 L MCV 91 MCH 30 MCHC 33 RDW Coeff of Todd 14.5 Plt Count 195 Neut % (Auto) 72.6 H Lymph % (Auto) 15.2 L [place] % (Auto) 8.5 Eos % (Auto) 3.1 Baso % (Auto) 0.4 Neut # (Auto) 6.70 Lymph # (Auto) 1.40 [place] # (Auto) 0.80 Eos # (Auto) 0.29 Baso # (Auto) 0.04 Abs Immat Gran (auto) 0.02 Imm/Tot Granulo (auto) 0.2 VBG pH 7.370 VBG pCO2 35 L VBG pO2 133.0 H VBG HCO3 20 L Sodium 137 Potassium 4.2 Chloride 114 Carbon Dioxide 20 Anion Gap 3 L BUN 52 H Creatinine 1.6 H Estimated Creat Clear 27.13 Estimated GFR 33 Glucose 73 Calcium 8.2 L Phosphorus 4.1 Magnesium 1.4 L Ferritin 81.0 C-Reactive Protein 3.3 H Albumin 2.0 L Stool Occult Blood Positive A Preliminary micro results at discharge 03/18/24 13:40 Urine Culture - Preliminary Urine,Clean Catch Culture in Progress Imaging CT Chest/Ab/Pelvis: Attestation: I have reviewed the pertinent imaging results. Radiologist's impression: CT abdomen and pelvis without contrast. COMPARISON: CT abdomen pelvis dated 01/02/2024. FINDINGS: Lower chest: Unremarkable. Noncontrast technique limits solid organ evaluation. Liver: Normal in size and attenuation. No suspicious masses. Gallbladder and bile ducts: Cholelithiasis. No biliary dilatation. Pancreas: Unremarkable. No mass or inflammation. Spleen: Normal in size. No masses. Adrenal glands: Normal in size. No nodules. Kidneys, ureters, and bladder: Right nephroureteral stent in place with pigtails in the right extrarenal pelvis and in the left aspect of the bladder. Moderate right hydroureteronephrosis. New 4 x 3 x 2 mm calculus in the left distal ureter with upstream moderate hydroureteronephrosis and new ill-defined hyperdensity in the dependent left renal pelvis. Nonobstructive 4 mm right lower pole renal calculus. Nonobstructive 7 mm left lower pole renal calculus. GI tract: Unremarkable. Normal in caliber. No sign of mass or inflammation. Normal appendix. Vasculature: Abdominal aorta is normal in caliber. Lymph nodes: No lymphadenopathy. Peritoneum/Abdominal Wall: Diffuse body wall edema. No sign of mass or infiltration. No free air or significant free fluid. Pelvis: Evaluation is limited due to artifact from the left total hip arthroplasty. No evident acute abnormalities. Bones: Unchanged L1 inferior endplate compression deformity. Left total hip arthroplasty with a partially redemonstrated large fluid collection extending from the region of the hip joint, posterolaterally into the proximal thigh soft tissues, measuring at least 6.5 cm in transaxial extent. No discretely visualized periprosthetic osteolysis IMPRESSION: 1. Right nephroureteral stent in place with moderate right hydroureteronephrosis. 2. New 4 mm calculus in the left distal ureter with upstream moderate hydroureteronephrosis. There is also new ill-defined hyperdensity in the dependent left renal pelvis, which may reflect blood products. 3. Left total hip arthroplasty with a partially redemonstrated large fluid collection extending from the region of the hip joint into the adjacent soft tissues, measuring at least 6.5 cm. No discrete periprosthetic osteolysis to indicate particle disease, though hardware associated artifact slightly limits evaluation. The sterility of this collection is indeterminate by imaging. Discharge Plan Discharge Disposition: Xfer Acute Care Hospital Discharge Location: [facility] Date of Admission: 03/18/24 16:59 Attending Provider on Discharge: Radha Shahid Primary Care Provider: Provider,Not a Local Condition: Stable Discharge Orders: Transfer of Care to Other Hospital (ORDER); Ordered 03/20/24 Ordered By: Radha Shahid Oxygen: No Urinary Catheter: Yes Drips/Lines: peripheral IV Services not available here: Urology
--- NOTE | 2024-03-20 08:28 | PC.NURSE ---
Shift note ([id number]): Patient pleasant, alert and oriented. Denied pain during night. Remained in bed.
[2024-03-20 09:00] VITALS: PULSE 66; RESP 18; O2SAT 98
--- NOTE | 2024-03-20 10:54 | PC.NURSE ---
Discharge: Patient pleasant and cooperative, A&O. VSS, afebrle. SpO2 maintained above 90% on RA. Discharged to [facility] at 0918 via non emergent ems.
--- NOTE | 2024-04-08 13:02 | PC.NURSE ---
Patient family member Liza here, picked up patients med box from front end engineer
== END 2024-03-20 09:18 | disposition short-term general hospital (02) | DRG 683 ==
LOC: ED 21:30 → MEDSURG 21:50
PROVIDERS: Family Medicine; Admitting Provider Family Medicine; Emergency Provider Student in an Organized Health Care Education/Training Program; Visit Provider Family Medicine
DX: N17.9 Acute kidney failure, unspecified (principal); C79.51 Secondary malignant neoplasm of bone; E44.0 Moderate protein-calorie malnutrition; R64 Cachexia; T84.52XA Infection and inflammatory reaction due to internal left hip prosthesis, initial encounter; N13.2 Hydronephrosis with renal and ureteral calculous obstruction; Z96.0 Presence of urogenital implants; M84.58XD Pathological fracture in neoplastic disease, other specified site, subsequent encounter for fracture with routine healing; I95.1 Orthostatic hypotension; E86.0 Dehydration; Z68.22 Body mass index [BMI] 22.0-22.9, adult; E83.42 Hypomagnesemia; W01.0XXA Fall on same level from slipping, tripping and stumbling without subsequent striking against object, initial encounter; Z91.81 History of falling; N18.2 Chronic kidney disease, stage 2 (mild); Z86.711 Personal history of pulmonary embolism; Z79.82 Long term (current) use of aspirin; Z96.642 Presence of left artificial hip joint; D63.8 Anemia in other chronic diseases classified elsewhere; D63.1 Anemia in chronic kidney disease; E03.9 Hypothyroidism, unspecified; E78.5 Hyperlipidemia, unspecified; Z85.42 Personal history of malignant neoplasm of other parts of uterus; Z90.710 Acquired absence of both cervix and uterus
CPT/HCPCS: 36415; 71046; 74176; 80048; 80069; 80076; 81001; 82270; 82330; 82728; 82803; 83540; 83550; 83605; 83735; 84439; 84443; 84484; 85025; 85045; 85610; 86140; 87086; 87186; 87631; 93005; 97110; 97162; 97166; 97530; 97535; 99284; 99285; G0378; A9270; J2405; J2470; J3475; J7030; J7120